=== PATIENT | male | born 1960 | race African-American/Black ===

== ENCOUNTER 2020-05-24 14:04 | Emergency (ER) | payer OTHER ==
--- NOTE | 2020-05-24 14:16 | PDOC ---
History of Present Illness - General Stated Complaint: Altered Mental Status Time Seen by Provider: 05/24/20 14:15 History Source: Patient Exam Limitations: Intoxication - History of Present Illness Initial Comments: HPI: Patient is an 60 y/o male with a PMH of heroin and alcohol abuse, and hep C, brought in by EMS from [facility]. He was sent over because he was unable to answ er questions during his admission. Patient is a poor historian, but said that he snorted more heroin than normal this morning. Patient denied alcohol use today. He stated that he fell and hit his head, and admitted to a headache. Per [facility] paperwork, DANIEL O%. Denied chest pain, SOB, nausea, or vomiting. ROS: -limited 2/2 intoxication (+): Headache (-): Chest pain, SOB, nausea, vomiting PMH: Hepatitis C, HTN, HLD PE: General: Patient is AAOx3 but visibly intoxicated, in no acute distress Head: Normocephalic, atraumatic Eyes: L eye miotic but responsive to light, R eye dilated and unresponsive. Patient states this is chronic and he had surgery in 2004. Cardiac: RRR, no murmurs appreciated Lungs: CTA bilaterally, no distress, speaks in full sentences Neuro: No focal sensorimotor defecits MDM: This is a 60 y/o male coming in from [facility] where he was doing intake for admission into their detox. He was unable to answer the intake questions. During our exam, he stated that he hit his head earlier in the day. We decided to CT his head and neck due to an unwitnessed fall and because he was unable to state whether he had LOC. The Head CT came back clear, but the radiologist noted that the neck CT showed a possible dilated vertebral artery. Spoke with Dr. Lopez (neuro) who didn't think this was anything acute, and could be followed up with as an outpatient. Patient refused his EKG. 05/24/20 18:08 05/24/20 18:12 05/24/20 18:43 05/24/20 23:05 Is this a multiple visit Asthma Patient?: No Past History - Medical History Allergies/Adverse Reactions: Allergies Allergy/AdvReac Type Severity Reaction Status Date / Time No Known Allergies Allergy Verified 05/24/20 14:19 Home Medications: Ambulatory Orders Simvastatin [Zocor] 0 mg PO HS 06/30/16 Amlodipine Besylate [Norvasc -] 5 mg PO DAILY #30 tablet 07/15/16 Atorvastatin Ca [Lipitor] 10 mg PO HS #30 tablet 07/15/16 traZODone HCL [Desyrel -] 50 mg PO HS #30 tablet 07/16/16 Anemia: No Asthma: No Cancer: No Cardiac Disorders: No CVA: No COPD: No CHF: No Dementia: No Diabetes: No GI Disorders: No Disorders: No HTN: Yes (Tx with Norvasc 5 mg po) Hypercholesterolemia: No Kidney Stones: No Liver Disease: No Seizures: No Thyroid Disease: No - Surgical History Abdominal Surgery: No Appendectomy: No Cardiac Surgery: No Cholecystectomy: Yes (in 2012) Lung Surgery: No Neurologic Surgery: No Orthopedic Surgery: No - Reproductive History Testicular Surgery: No - Psycho-Social/Smoking History Smoking History: Current every day smoker Have you smoked in the past 12 months: Yes Number of Cigarettes Smoked Daily: 4 Cigars Per Day: 0 'Breaking Loose' booklet given: 06/30/16 Discharge - Discharge Information Problems reviewed: Yes Clinical Impression/Diagnosis: Opioid dependence, daily use Condition: Fair Disposition: HOME - Admission No - Follow up/Referral Referrals: Sagar Lopez MD [Staff Physician] - - Patient Discharge Instructions Patient Printed Discharge Instructions: DI for Opioid Addiction Additional Instructions: You were seen here for opioid abuse/intoxication and "hitting your head." You were evaluated with a physical exam and a CT of the head and neck. Imaging was negative. You state that you would like to be detoxed. You are medically cleared at this time and can proceed to detox. Please refrain from using substances in the future. Follow up with Dr. Lopez, Neurology for evaluation of vertebral artery found on cervical CT. Return to the ER immediately if you experience chest pain, SOB, lightheadedness, nausea, vomiting, or any other concerning symptoms. - Post Discharge Activity
[2020-05-24 14:27] VITALS: TEMP 99.5; BMI 20.9
--- NOTE | 2020-05-24 15:52 | PDOC ---
Documentation entered by Enoch Tamez SCRIBE, acting as scribe for Sarah López MD. Sarah López MD: This documentation has been prepared by the Joi thompson Xhesika, SCRIBE, under my direction and personally reviewed by me in its entirety. I confirm that the documentation accurately reflects all work, treatment, procedures, and medical decision making performed by me. Attending Attestation - Resident Resident Name: Alecia Burkett - ED Attending Attestation I have performed the following: I have examined & evaluated the patient, The case was reviewed & discussed with the resident, I agree w/resident's findings & plan, Exceptions are as noted - HPI HPI: 05/24/20 14:43 The patient is a 60y/o M with a PMH of HTN and heroine abuse who presents to the ED BIBA from [facility] for AMS. Pt states he snorted more heroine than usual today. Pt reports a mechanical fall and hit his head. Pt denies any medical complaints here in the ED. Allergies: NKDA - Physicial Exam PE: 05/24/20 15:47 General: non-toxic appearing, NAD HEENT: NCAT, EOMI, surgical pupil on R (pt reports prior eye surgery) Neuro: asleep but easily arousable, Aox3, answers questions appropriately, speech fluent face symmetric, gait steady, no focal deficits - Medical Decision Making 05/24/20 15:48 60 yo M sent from [facility] for AMS, blood alcohol negative there and patient would not give urine so sent to ED. In ED patient asleep but easily arousable, Aox3 without any focal deficits, admits to snorting heroin this morning more than usual, normal respiratory rate, no infectious complaints. Mental status at rehab center likely 2/2 substance use however given h/o fall reported by patient will get CT head to r/o ICH. Multiple attempts made to do EKG however patient refused and yelled at tech to get out of his room despite multiple attempts made to perform EKG and explain to patient that it would not be painful and was important to check his heart however patient said he wanted to be left alone to sleep. Plan: -CT head -if CT head negative will d/c back to [facility], return precautions given, recommend PMD f/u as needed This clinical encounter is taking place during a federal and state health care emergency attributable to the novel Richardson Virus pandemic. The Cyber [employer] of the Department of Health and Human Services has declared, pursuant to the Public Health Service Act 319F-3 (42 U.S.C. 247d-6d), that a covered persons activities related to medical countermeasures against COVID-19 will be immune from liability under Federal and State law. Discharge - Discharge Information Problems reviewed: Yes Clinical Impression/Diagnosis: Opioid dependence, daily use Condition: Fair Disposition: HOME - Follow up/Referral Referrals: Sagar Lopez MD [Staff Physician] - - Patient Discharge Instructions Patient Printed Discharge Instructions: DI for Opioid Addiction Additional Instructions: You were seen here for opioid abuse/intoxication and "hitting your head." You were evaluated with a physical exam and a CT of the head and neck. Imaging was negative. You state that you would like to be detoxed. You are medically cleared at this time and can proceed to detox. Please refrain from using substances in the future. Follow up with Dr. Lopez, Neurology for evaluation of vertebral artery found on cervical CT. Return to the ER immediately if you experience chest pain, SOB, lightheadedness, nausea, vomiting, or any other concerning symptoms. - Post Discharge Activity
[2020-05-24 17:43] VITALS: BP 157/73; PULSE 72
== END 2020-05-24 17:43 | disposition home or self-care (01) ==
LOC: JER 14:04
DX: F11.20 Opioid dependence, uncomplicated (principal)
CPT/HCPCS: 70450-TC; 72125-TC; 82962; 99284-25

== ENCOUNTER 2020-05-24 23:07 | Inpatient (IN) | payer OTHER ==
--- NOTE | 2020-05-25 00:15 | PDOC ---
Attending Attestation - Resident Resident Name: Ralph Conrad - ED Attending Attestation I have performed the following: I have examined & evaluated the patient, The case was reviewed & discussed with the resident, I agree w/resident's findings & plan - HPI HPI: 05/25/20 00:13 Pt comes with "AMS" from [facility]. Pt is not answering questions and although he reports drug use, he is refusing to give urine, so they sent him here for evaluation. 05/25/20 02:08 Pt seems somnolent and states that he is trying to quit drugs cold turkey. States that he doesn't want to keep answering the same questions. - Physicial Exam PE: 05/25/20 00:15 Agree with resident note. 05/25/20 02:10 Pt is cachectic - temporal wasting. Pt is afebrile. He has old abrasions on right knee, and old cuts on face. heart and lungs normal Abd soft NT ND no flank pain jauncied/icteric eyes no peripheral edema - Medical Decision Making 05/25/20 00:16 Pt was seen here in the ER this AM; Head CT and cspine CT normal 05/25/20 01:12 Pt never had labs this AM; we will try to get labs if he allows them to be drawn. Pt will also need to give us urine so that we can send a UTOX. 05/25/20 03:16 We are finally getting labs on the patient. He is refusing to cooperate; urinated all over the floor. Removed his scrubs and threw off his sheets, lying naked. I covered him up again. Resting comfortably. 05/25/20 04:50 LFTS are elevated. Pt has elevated Tbili higher than his usual. Pt has had elevated ammonia in the past. He will have an ammonia level sent and he will be treated with lactulose; he likely has hepatic encephalopathy. Discharge - Discharge Information Problems reviewed: Yes Clinical Impression/Diagnosis: AMS (altered mental status) - Follow up/Referral - Patient Discharge Instructions - Post Discharge Activity
--- NOTE | 2020-05-25 00:27 | PDOC ---
History of Present Illness - General Chief Complaint: Altered Mental Status Stated Complaint: ALTERED MENTAL STATUS Time Seen by Provider: 05/24/20 23:47 History Source: Patient Exam Limitations: No Limitations - History of Present Illness Initial Comments: 05/25/20 00:22 60 yo male pmh heroin abuse from [facility] for AMS for the second visit in 1 day. Pt seen and cleared by day shift team, resident present in the ED that saw the patient, states there is no changes in his mental status from earlier today, AOX3, easily arousable, no focal deficits. Note from [facility] states pt did not give urine and will not be admitted to [facility] without positive urine for heroin. Pt state "I am doped up and want heroin detox" admits to snoring heroin yesterday. Fall out of bed earlier today, neg head CT, denies GARCIA or focal deficits Past History - Medical History Allergies/Adverse Reactions: Allergies Allergy/AdvReac Type Severity Reaction Status Date / Time No Known Allergies Allergy Verified 05/24/20 23:20 Home Medications: Ambulatory Orders Simvastatin [Zocor] 0 mg PO HS 06/30/16 Amlodipine Besylate [Norvasc -] 5 mg PO DAILY #30 tablet 07/15/16 Atorvastatin Ca [Lipitor] 10 mg PO HS #30 tablet 07/15/16 traZODone HCL [Desyrel -] 50 mg PO HS #30 tablet 07/16/16 Anemia: No Asthma: No Cancer: No Cardiac Disorders: No CVA: No COPD: No CHF: No Dementia: No Diabetes: No GI Disorders: No Disorders: No HTN: Yes (Tx with Norvasc 5 mg po) Hypercholesterolemia: No Kidney Stones: No Liver Disease: No Seizures: No Thyroid Disease: No - Surgical History Abdominal Surgery: No Appendectomy: No Cardiac Surgery: No Cholecystectomy: Yes (in 2012) Lung Surgery: No Neurologic Surgery: No Orthopedic Surgery: No - Reproductive History Testicular Surgery: No - Immunization History Immunization Up to Date: No - Psycho-Social/Smoking History Smoking History: Unknown if ever smoked Have you smoked in the past 12 months: Yes Number of Cigarettes Smoked Daily: 4 Cigars Per Day: 0 'Breaking Loose' booklet given: 06/30/16 - Substance Abuse Hx (Audit-C & DAST Scrn) How often the patient has a drink containing alcohol: 4 0r more times/wk Number of drinks the patient has on a typical day: 10 or more How often the patient has six or more drinks on one occasion: Daily or almost daily Score: In Men: 4 or > Positive; In Women: 3 or > Positive: 12 Screen Result (Pos requires Nsg. Audit-10AR): Positive In the last yr the pt used illegal drug/Rx for NonMed reason: Yes Score: Yes response is considered Positive: 1 Screen Result (Positive result requires Nsg. DAST-10): Positive Review of Systems - Review of Systems Constitutional: Yes: Symptoms Reported HEENTM: Yes: Symptoms Reported Respiratory: Yes: Symptoms reported Cardiac (ROS): Yes: Symptoms Reported ABD/GI: Yes: Symptoms Reported : Yes: Symptoms Reported Musculoskeletal: Yes: Symptoms Reported Integumentary: Yes: Symptoms Reported Neurological: Yes: Symptoms reported *Physical Exam - Vital Signs Last Vital Signs Temp Pulse Resp BP Pulse Ox 98 F 90 18 147/115 H 100 05/24/20 23:14 05/24/20 23:14 05/24/20 23:14 05/24/20 23:14 05/24/20 23:14 - Physical Exam General Appearance: Yes: Nourished, Appropriately Dressed. No: Apparent Distress HEENT: positive: EOMI, MECHELLE Neck: positive: Supple. negative: Carotid bruit Respiratory/Chest: positive: Lungs Clear, Normal Breath Sounds. negative: Respiratory Distress, Rapid RR, Crackles, Rales, Rhonchi, Stridor, Wheezing Cardiovascular: positive: Regular Rhythm, Regular Rate, S1, S2. negative: Edema, JVD, Murmur Vascular Pulses: Dorsalis-Pedis (R): 4+, Doralis-Pedis (L): 4+ Gastrointestinal/Abdominal: positive: Flat, Soft. negative: Pulsatile Mass, Protuberent, Distended, Guarding, Rebound, Tenderness Musculoskeletal: negative: CVA Tenderness Extremity: positive: Normal Capillary Refill, Normal Inspection, Normal Range of Motion Integumentary: positive: Normal Color, Dry, Warm Neurologic: positive: Fully Oriented, Alert, Normal Mood/Affect ED Treatment Course - LABORATORY CBC & Chemistry Diagram: 05/25/20 03:19 05/25/20 03:19 Medical Decision Making - Medical Decision Making 05/25/20 00:27 60 yo male pmh heroin abuse from [facility] for AMS for the second visit in 1 day. Pt seen and cleared by day shift team, resident present in the ED that saw the patient, states there is no changes in his mental status from earlier today, AOX3, easily arousable, no focal deficits. Note from [facility] states pt did not give urine and will not be admitted to [facility] without positive urine for heroin. Pt state "I am doped up and want heroin detox" admits to snoring heroin yesterday. Fall out of bed earlier today, neg head CT, denies GARCIA or focal deficits vitals stable Pt hx elevated ammonia, likely hepatic encephalopathy Labs show elevated ammonia and bili Pt given lactulose and will be admitted for AMS Neg urine for heroin, no signs of withdrawl Pending MB call back for admission s/o to day team Discharge - Discharge Information Problems reviewed: Yes Clinical Impression/Diagnosis: AMS (altered mental status) - Follow up/Referral - Patient Discharge Instructions - Post Discharge Activity
[2020-05-25 00:30] VITALS: BMI 23.6
[2020-05-25 03:35] LABS: BASO % 0.6 % (0-2.0); EOS % 1.4 % (0-4.5); HEMATOCRIT 33.9 % (35.4-49); HEMOGLOBIN 10.8 GM/dL (11.7-16.9); LYMPH % 26.2 % (8-40); MCH 29.8 pg (25.7-33.7); MCHC 31.9 g/dl (32.0-35.9); MEAN CELL VOLUME 93.2 fl (80-96); MONO % 19.9 % (3.8-10.2); NEUT % 51.9 % (42.8-82.8); PLATELET COUNT 123 K/MM3 (134-434); RBC 3.63 M/mm3 (4.00-5.60); RDW 18.5 % (11.9-15.9)
[2020-05-25 04:02] LABS: ALBUMIN 3.1 g/dl (3.4-5.0); BILIRUBIN,TOTAL 2.6 mg/dL (0.2-1); BLOOD UREA NITROGEN 4.7 mg/dL (7-18); CALCIUM 8.8 mg/dL (8.5-10.1); CREATININE 0.9 mg/dL (0.55-1.3); POTASSIUM 3.4 mmol/L (3.5-5.1); TOT PROT 7.4 g/dl (6.4-8.2)
[2020-05-25] MEDS ORDERED: LACTULOSE 20 GM/30 ML UDC (FOR ORAL USE ONLY) PO ONE (04:22)
[2020-05-25] MEDS ORDERED: LACTULOSE 20 GM/30 ML UDC (FOR ORAL USE ONLY) ONE (04:37)
[2020-05-25 05:49] LABS: COCAINE, UR NEGATIVE ng/ml (CUTOFF=300); METHADONE, UR NEGATIVE ng/ml (CUTOFF=300); OPIATES, URI NEGATIVE ng/ml (CUTOFF=300); PHENCYCLIDINE,URINE NEGATIVE ng/ml (CUTOFF=25); URINE BARBITURATES NEGATIVE ng/ml (CUTOFF=200); URINE BENZODIAZEPINES NEGATIVE ng/ml (CUTOFF=200)
[2020-05-25 06:16] LABS: URINE AMPHETAMINES NEGATIVE ng/ml (CUTOFF=500)
[2020-05-25 06:25] LABS: URINE APPEARANCE CLEAR; URINE COLOR YELLOW
[2020-05-25 06:26] LABS: URINE BILIRUBIN NEGATIVE (NEGATIVE); URINE GLUCOSE (UA) NEGATIVE (NEGATIVE); URINE KETONE NEGATIVE (NEGATIVE)
[2020-05-25 06:27] LABS: PH,URINE 8.5 (5.0-8.0); URINE LEUK ESTERASE NEGATIVE (NEGATIVE); URINE NITRITE NEGATIVE (NEGATIVE); URINE PROTEIN NEGATIVE (NEGATIVE)
[2020-05-25] MEDS ORDERED: SODIUM CHLORIDE 1,000 ML IV STA (07:03)
[2020-05-25] MEDS ORDERED: LACTULOSE 20 GM/30 ML UDC (FOR ORAL USE ONLY) PO PRN (15:58)
[2020-05-25] MEDS ORDERED: LORazepam 1 MG TABLET PO PRN (16:06)
--- NOTE | 2020-05-25 16:12 | HP ---
Admitting History and Physical - Admission Chief Complaint: AMS History of Present Illness: 60M history of current active alcohol abuse/use disorder, HTN, HLD, Depression, hep C per patient, snorts 1 bag of heroin rodriguez and drinks 1 pint of vodka daily presented to [facility] for detox. Patient had AMS and didn't meet criteria for rehab so was sent to ER. Noted to have elevated ammonia level and elevated LFTs. Given lactulose. Utox negative. Tmax 99.9. Denies nausea vomiting fever chest pain or SOB. denies diarrhea. Endorses chills. Used to inject heroin, last time in 1995. uSed to share needles. Patient had a fall as well. History Source: Medical Record Limitations to Obtaining History: Clinical Condition, Intoxication, Poor Historian - Past Medical History Cardiovascular: Yes: HTN Hepatobiliary: Yes: Hepatitis C Infectious Disease: Yes: Other ([facility] needles in the ) - Smoking History Smoking history: Unknown if ever smoked Have you smoked in the past 12 months: Yes Aproximately how many cigarettes per day: 4 - Alcohol/Substance Use Hx Alcohol Use: Yes (3-4 pints of vodka) Home Medications - Allergies Allergies/Adverse Reactions: Allergies Allergy/AdvReac Type Severity Reaction Status Date / Time No Known Allergies Allergy Verified 05/24/20 23:20 - Home Medications Home Medications: Ambulatory Orders Simvastatin [Zocor] 0 mg PO HS 06/30/16 Amlodipine Besylate [Norvasc -] 5 mg PO DAILY #30 tablet 07/15/16 Atorvastatin Ca [Lipitor] 10 mg PO HS #30 tablet 07/15/16 traZODone HCL [Desyrel -] 50 mg PO HS #30 tablet 07/16/16 Family Medical History Family History: Unable to Obtain Review of Systems - Review of Systems Constitutional: reports: Chills. denies: Fever Eyes: reports: No Symptoms HENT: reports: No Symptoms Neck: reports: No Symptoms Cardiovascular: reports: No Symptoms Respiratory: reports: No Symptoms Gastrointestinal: reports: No Symptoms Genitourinary: reports: No Symptoms Breasts: reports: No Symptoms Reported Musculoskeletal: reports: Muscle Weakness Integumentary: reports: Other (piloerection) Neurological: reports: Confusion, Tremors, Unsteady Gait Psychiatric: reports: Depression, Other (alcohol and opioid abuse) Physical Examination Vital Signs: Vital Signs Temperature 99.9 F H 05/25/20 15:21 Pulse Rate 74 05/25/20 15:21 Respiratory Rate 18 05/25/20 06:19 Blood Pressure 144/78 05/25/20 15:21 O2 Sat by Pulse Oximetry (%) 100 05/25/20 15:21 Constitutional: Yes: No Distress, Thin Eyes: Yes: EOM Intact. No: Sclera Icterus HENT: Yes: Atraumatic, Thrush Neck: Yes: Supple Cardiovascular: Yes: Tachycardia Respiratory: Yes: CTA Bilaterally Gastrointestinal: Yes: Soft. No: Tenderness Extremities: Yes: WNL Edema: No Labs: CBC, BMP 05/25/20 03:19 05/25/20 03:19 Imaging - Results Chest X-ray: Report Reviewed, Image Reviewed Cat Scan: Report Reviewed, Image Reviewed (C spine and head CT) Assessment/Plan 60M with alcohol and opioid abuse/dependence presents with AMS likely secondary to alcoholic encephalopathy. Problem List: hepatic encephalopathy ? basal ganglia lesions alcohol and opioid abuse/dependency Polysubstance abuse altered mental status Hypokalemia HTN HLD Depression Thrush Plan: Admit to med surg lactulose to titrate to 3 BMs per day restart norvasc restart statin nystatin oral suspension Trazadone check acute hepatitis panel [facility] Utox tomorrow neurology consult Due to acute illness I anticipate a stay spanning at least 2 midnights. Visit type - Emergency Visit Emergency Visit: Yes ED Registration Date: 05/25/20 Care time: The patient presented to the Emergency Department on the above date and was hospitalized for further evaluation of their emergent condition. - New Patient This patient is new to me today: Yes Date on this admission: 05/25/20 - Critical Care Critical Care patient: No
[2020-05-25] MEDS ORDERED: POTASSIUM CHLORIDE TABS 20 MEQ TABLET.ER (FP) PO ONE ×2 (16:15→16:38)
[2020-05-25] MEDS ORDERED: LORazepam 0.5 MG TABLET ONE ×2 (16:38→23:04)
[2020-05-25] MEDS: LORazepam 0.5 MG TABLET PO SCH ×2 (16:57→23:10)
[2020-05-25] MEDS: NYSTATIN 500,000 UNITS/5 ML SUSPENSION PO SCH (18:42)
[2020-05-25] MEDS ORDERED: ATORVASTATIN CA 10 MG TABLET (FP) PO SCH (22:00)
[2020-05-25] MEDS ORDERED: HEPARIN NA (PORCINE) 5,000 UNITS/ML 1ML VIAL ONE (22:09)
[2020-05-25] MEDS ORDERED: ATORVASTATIN CA 10 MG TABLET (FP) ONE (22:09)
[2020-05-25] MEDS: HEPARIN NA (PORCINE) 5,000 UNITS/ML 1ML VIAL SQ SCH (22:35)
[2020-05-25] MEDS: traZODone HCL 50 MG TABLET (FP) PO SCH (22:35)
[2020-05-26] MEDS: NYSTATIN 500,000 UNITS/5 ML SUSPENSION PO SCH ×4 (00:42→17:03)
[2020-05-26] MEDS: LORazepam 0.5 MG TABLET PO SCH ×4 (06:04→23:44)
[2020-05-26] MEDS: HEPARIN NA (PORCINE) 5,000 UNITS/ML 1ML VIAL SQ SCH ×3 (06:17→21:06)
[2020-05-26 08:13] LABS: BASO % 0.9 % (0-2.0); EOS % 0.5 % (0-4.5); HEMOGLOBIN 9.7 GM/dL (11.7-16.9); LYMPH % 25.3 % (8-40); MCH 28.6 pg (25.7-33.7); MCHC 31.2 g/dl (32.0-35.9); MEAN CELL VOLUME 91.6 fl (80-96); MONO % 16.9 % (3.8-10.2); NEUT % 56.4 % (42.8-82.8); PLATELET COUNT 108 K/MM3 (134-434); RBC 3.38 M/mm3 (4.00-5.60); RDW 18.8 % (11.9-15.9); WHITE BLOOD COUNT 4.5 K/mm3 (4.0-10.0)
[2020-05-26 08:24] LABS: INR 1.79 (0.83-1.09); PROTHROMBIN TIME (PATIENT) 21.2 SEC (9.7-13.0)
[2020-05-26 08:29] LABS: ALBUMIN 2.7 g/dl (3.4-5.0); BILIRUBIN,TOTAL 2.2 mg/dL (0.2-1); BLOOD UREA NITROGEN 6.2 mg/dL (7-18); CALCIUM 8.1 mg/dL (8.5-10.1); CREATININE 0.8 mg/dL (0.55-1.3); MAGNESIUM 1.9 mg/dL (1.8-2.4); PHOSPHOROUS 4.5 mg/dL (2.5-4.9); TOT PROT 6.3 g/dl (6.4-8.2)
[2020-05-26 08:50] LABS: POTASSIUM 2.5 mmol/L (3.5-5.1)
--- NOTE | 2020-05-26 09:29 | PN ---
Physical Exam: SUBJECTIVE: No overnight events. Patient seen and examined. NAD. Patient is somnolent. OBJECTIVE: Vital Signs Period Temp Pulse Resp BP Sys/Dee Pulse Ox Last 24 Hr 97.9 F-99.9 F 74-101 18-20 144-159/78-90 98-100 GENERAL: Pt is thin man. Pt is somnolent and in NAD. HEENT: NT/NC; sclera anicteric, No ptosis. Oral thrush; increased oral secretions LUNGS: Breath sounds equal, clear to auscultation bilaterally, no wheezes, no crackles, no accessory muscle use. HEART: Regular rate and rhythm, S1, S2 without murmur, rub or gallop. ABDOMEN: Soft, nontender, nondistended, normoactive bowel sounds, no guarding, no rebound EXTREMITIES: warm, well-perfused, no edema. abrasions on R knee. NEUROLOGICAL: gait not observed, speech slurred. strength 4/5 lower extremities; 3/5 upper extremities. asked pt about sensation, but pt was somnolent and did not answer questions. PSYCH: Normal mood, normal affect. SKIN: Warm, dry, normal turgor, no rashes or lesions noted Laboratory Results - last 24 hr 05/25/20 05/25/20 05/26/20 03:19 17:35 07:43 WBC 4.5 RBC 3.38 L Hgb 9.7 L Hct 31.0 L MCV 91.6 MCH 28.6 MCHC 31.2 L RDW 18.8 H Plt Count 108 L MPV 8.0 Absolute Neuts (auto) 2.5 Neutrophils % 56.4 Lymphocytes % 25.3 Monocytes % 16.9 H Eosinophils % 0.5 Basophils % 0.9 Nucleated RBC % 0 PT with INR INR Sodium 142 Potassium 3.4 L Chloride 116 H Carbon Dioxide 17 L Anion Gap 9 BUN 4.7 L Creatinine 0.9 Est GFR (CKD-EPI)AfAm 106.46 Est GFR (CKD-EPI)NonAf 91.86 Random Glucose 92 Calcium 8.8 Phosphorus Magnesium Total Bilirubin 2.6 H Direct Bilirubin AST 115 H ALT 57 Alkaline Phosphatase 148 H Ammonia Creatine Kinase 390 H Creatine Kinase Index 0.8 CK-MB (CK-2) 3.5 Troponin I 0.03 Total Protein 7.4 Albumin 3.1 L Alcohol, Quantitative Cancelled HIV Ag/Ab Combo Qual Negative 05/26/20 05/26/20 05/26/20 07:43 07:43 07:43 WBC RBC Hgb Hct MCV MCH MCHC RDW Plt Count MPV Absolute Neuts (auto) Neutrophils % Lymphocytes % Monocytes % Eosinophils % Basophils % Nucleated RBC % PT with INR 21.20 H INR 1.79 H Sodium 148 H Potassium 2.5 L* Chloride 119 H Carbon Dioxide 14 L Anion Gap 16 BUN 6.2 L Creatinine 0.8 Est GFR (CKD-EPI)AfAm 111.74 Est GFR (CKD-EPI)NonAf 96.41 Random Glucose 91 Calcium 8.1 L Phosphorus 4.5 Magnesium 1.9 Total Bilirubin 2.2 H Direct Bilirubin 1.0 H AST 87 H ALT 50 Alkaline Phosphatase 118 H Ammonia 93.40 H Creatine Kinase Creatine Kinase Index CK-MB (CK-2) Troponin I Total Protein 6.3 L Albumin 2.7 L Alcohol, Quantitative HIV Ag/Ab Combo Qual Active Medications Generic Name Dose Route Start Last Admin Trade Name Freq PRN Reason Stop Dose Admin Amlodipine Besylate 5 mg 05/26/20 10:00 Norvasc - PO DAILY JOE Atorvastatin Calcium 10 mg 05/25/20 22:00 05/25/20 22:35 Lipitor - PO 10 mg HS JOE Administration Heparin Sodium (Porcine) 5,000 unit 05/25/20 22:00 05/26/20 06:17 Heparin - SQ 5,000 unit TID JOE Administration Lactulose 20 gm 05/25/20 15:58 Cephulac (Oral Use) PO TID PRN CONSTIPATION Lorazepam 1 mg 05/27/20 05:00 Ativan - PO 05/27/20 23:01 0500,1100,1700,2300 JOE Lorazepam 1 mg 05/25/20 16:06 Ativan - PO 05/27/20 23:59 Q4H PRN Symptoms of Withdrawal Lorazepam 2 mg 05/25/20 17:00 05/26/20 06:04 Ativan - PO 05/26/20 23:01 2 mg 0500,1100,1700,2300 JOE Administration Lorazepam 0.5 mg 05/28/20 05:00 Ativan - PO 05/28/20 23:01 Q6H JOE Lorazepam 0.5 mg 05/28/20 00:00 Ativan - PO 05/29/20 00:00 Q4H PRN Symptoms of Withdrawal Lorazepam 0.5 mg 05/29/20 05:00 Ativan - PO 05/29/20 05:01 ONCE ONE Nystatin 500,000 units 05/25/20 18:00 05/26/20 06:11 Nystatin Oral Suspension - PO 500,000 units Q6HPO JOE Administration Trazodone HCl 50 mg 05/25/20 22:00 05/25/20 22:35 Desyrel - PO 50 mg HS JOE Administration utox: negative HIV: negative CT head: small b/l basal ganglia hypodense foci C-spine: Soft tissue density within C3-C4 intervertebral foramen. At C4, widening of the L sided vertebral canal which could be on the basis of vertebral artery dilatation or elongation. MRI: pending shoulder x-ray: no bone or soft tissue abnormality ASSESSMENT/PLAN: 60 YO M PMH HTN, HLD, depression, Hep C (according to pt), alcohol use disorder (1 pint vodka daily), and heroin use (last heroin injection 1995 & previously shared needles; Now snorts 1 bag heroid daily) p/w AMS and a fall after endorsing snorting heroin on 05/24/2020. Didn't meet criteria for rehab, so was refused by [facility] for detox. Admitted for AMS 2/2 hepatic encephalopathy #AMS 2/2 hepatic encephalopathy 2/2 substance use disorder -ammonia improved form 94.2 to 93.4, AST trended down from 115 to 87 today -c/w lactulose PO, rectal if PO is not tolerated due to somnolence. -Hep A, B, C serology pending #alcohol use disorder -utox negative -lorazepam as per [facility] protocol -IV Thiamine #Fall -CT head negative for acute pathology. CT head & c-spine are as above. -CT: small b/l basal ganglia hypodense foci; Neuro consult appreciated. REPEAT head CT as initial was limited by motion artifact #HTN c/w amlodipine 5 mg. #HLD -c/w atorvastatin 10 mg #Thrush c/w Nystatin oral suspension #depression c/w trazodone #COVID pending #FEN -no IV fluids -hypokalemia; K+ trend down from 3.4 to 2.5 today. Na+ elevated, P & Mg WNL. Replete w/ KCl PO, IV as tolerated Monitor w/ BMP. Trend Phosphorus. -sodium controlled diet #DISPO maintain med surg Visit type - Emergency Visit Emergency Visit: Yes ED Registration Date: 05/25/20 Care time: The patient presented to the Emergency Department on the above date and was hospitalized for further evaluation of their emergent condition. - New Patient This patient is new to me today: Yes Date on this admission: 05/26/20 - Critical Care Critical Care patient: No ATTENDING PHYSICIAN STATEMENT I saw and evaluated the patient. I reviewed the resident's note and discussed the case with the resident. I agree with the resident's findings and plan as documented. SUBJECTIVE: OBJECTIVE: ASSESSMENT AND PLAN:
[2020-05-26] MEDS: amLODIPine BESYLATE 5 MG TABLET (FP) PO SCH (10:25)
[2020-05-26] MEDS ORDERED: POTASSIUM CHLORIDE TABS 20 MEQ TABLET.ER (FP) PO SCH (11:00)
[2020-05-26] MEDS: POTASSIUM CHLORIDE TABS 20 MEQ TABLET.ER (FP) PO SCH ×3 (11:44→23:40)
--- NOTE | 2020-05-26 11:51 | CONSULT ---
Consult - text type - Consultation Consultation Note: Neurology Chief Complaint: AMS History of Present Illness: 60M history of current active alcohol abuse/use disorder, HTN, HLD, Depression, hep C per patient, snorts 1 bag of heroin daily and drinks 1 pint of vodka daily presented to [facility] for detox. Patient had AMS and didn't meet criteria for rehab so was sent to ER. Noted to have elevated ammonia level and elevated LFTs. Given lactulose. Utox negative. Tmax 99.9. Denies nausea vomiting fever chest pain or SOB. denies diarrhea. Endorses chills. Used to inject heroin, last time in 1995. uSed to share needles. Patient had a fall as well. Patient seen at bedside and discussed with nurse, initial CT of the head demonstrated questionable lesions of the bilateral basal ganglia of unclear chronicity. Will order repeat CT head as initial was limited by motion artifact. Nurse indicated patient seem to have some increased right sided difficulty which may indicate prior CVA. If further MRI is needed then this will be considered as well. Patient is on Lipitor 10 mg but not on Aspirin, if no contraindications then recommend at least 81 mg daily for CVA prevention. History Source: Medical Record Limitations to Obtaining History: Clinical Condition, Poor Historian - Past Medical History Cardiovascular: Yes: HTN Hepatobiliary: Yes: Hepatitis C Infectious Disease: Yes: Other ([place] needles in the ) - Smoking History Smoking history: Unknown if ever smoked Have you smoked in the past 12 months: Yes Aproximately how many cigarettes per day: 4 - Alcohol/Substance Use Hx Alcohol Use: Yes (3-4 pints of vodka) Allergies Allergy/AdvReac Type Severity Reaction Status Date / Time No Known Allergies Allergy Verified 05/24/20 23:20 Ambulatory Orders Simvastatin [Zocor] 0 mg PO HS 06/30/16 Amlodipine Besylate [Norvasc -] 5 mg PO DAILY #30 tablet 07/15/16 Atorvastatin Ca [Lipitor] 10 mg PO HS #30 tablet 07/15/16 traZODone HCL [Desyrel -] 50 mg PO HS #30 tablet 07/16/16 Active Medications Amlodipine Besylate (Norvasc -) 5 mg PO DAILY [facility] Last Admin: 05/26/20 10:25 Dose: 5 mg Documented by: Atorvastatin Calcium (Lipitor -) 10 mg PO [facility] Last Admin: 05/25/20 22:35 Dose: 10 mg Documented by: Heparin Sodium (Porcine) (Heparin -) 5,000 unit SQ TID [facility] Last Admin: 05/26/20 06:17 Dose: 5,000 unit Documented by: Potassium Chloride (Potassium Chloride 10 Meq Premix Ivpb -) 10 meq in 100 mls @ 100 mls/hr IVPB Q60M [facility] Stop: 05/26/20 14:29 Lactulose (Cephulac (Oral Use)) 20 gm PO TID [facility] Stop: 05/27/20 13:59 Lorazepam (Ativan -) 1 mg PO 0500,1100,1700,2300 [facility] Stop: 05/27/20 23:01 Lorazepam (Ativan -) 1 mg PO Q4H PRN PRN Reason: Symptoms of Withdrawal Stop: 05/27/20 23:59 Lorazepam (Ativan -) 2 mg PO 0500,1100,1700,2300 [facility] Stop: 05/26/20 23:01 Last Admin: 05/26/20 06:04 Dose: 2 mg Documented by: Lorazepam (Ativan -) 0.5 mg PO Q6H [facility] Stop: 05/28/20 23:01 Lorazepam (Ativan -) 0.5 mg PO Q4H PRN PRN Reason: Symptoms of Withdrawal Stop: 05/29/20 00:00 Lorazepam (Ativan -) 0.5 mg PO ONCE ONE Stop: 05/29/20 05:01 Nystatin (Nystatin Oral Suspension -) 500,000 units PO Q6HPO [facility] Last Admin: 05/26/20 11:44 Dose: 500,000 units Documented by: Potassium Chloride (K-Dur -) 20 meq PO Q6H [facility] Stop: 05/28/20 10:59 Last Admin: 05/26/20 11:44 Dose: 20 meq Documented by: Trazodone HCl (Desyrel -) 50 mg PO HS [facility] Last Admin: 05/25/20 22:35 Dose: 50 mg Documented by: Family Medical History Family History: Unable to Obtain, limited mentals status Review of Systems - Review of Systems Constitutional: reports: Chills. denies: Fever Eyes: reports: No Symptoms HENT: reports: No Symptoms Neck: reports: No Symptoms Cardiovascular: reports: No Symptoms Respiratory: reports: No Symptoms Gastrointestinal: reports: No Symptoms Genitourinary: reports: No Symptoms Breasts: reports: No Symptoms Reported Musculoskeletal: reports: Muscle Weakness Integumentary: reports: Other (piloerection) Neurological: reports: Confusion, Tremors, Unsteady Gait Psychiatric: reports: Depression, Other (alcohol and opioid abuse) Physical Examination Vital Signs: Vital Signs Period Temp Pulse Resp BP Sys/Dee Pulse Ox Last 24 Hr 97.9 F-99.9 F 74-101 18-20 144-159/78-90 99-100 Constitutional: Yes: No Distress, Thin Eyes: Yes: EOM Intact. No: Sclera Icterus HENT: Yes: Atraumatic, Thrush Neck: Yes: Supple Cardiovascular: Yes: Tachycardia Respiratory: Yes: CTA Bilaterally Gastrointestinal: Yes: Soft. No: Tenderness Extremities: Yes: WNL Neuro: Somnolent but arousable, moving extremity's grossly but not participating in confrontations testing, minimally verbal, intact to tactile stimulation Labs: CBCD WBC 4.5 K/mm3 (4.0-10.0) 05/26/20 07:43 RBC 3.38 M/mm3 (4.00-5.60) L 05/26/20 07:43 Hgb 9.7 GM/dL (11.7-16.9) L 05/26/20 07:43 Hct 31.0 % (35.4-49) L 05/26/20 07:43 MCV 91.6 fl (80-96) 05/26/20 07:43 MCHC 31.2 g/dl (32.0-35.9) L 05/26/20 07:43 RDW 18.8 % (11.9-15.9) H 05/26/20 07:43 Plt Count 108 K/MM3 (134-434) L 05/26/20 07:43 MPV 8.0 fl (7.5-11.1) 05/26/20 07:43 CMP Sodium 148 mmol/L (136-145) H 05/26/20 07:43 Potassium 2.5 mmol/L (3.5-5.1) L* 05/26/20 07:43 Chloride 119 mmol/L (98-107) H 05/26/20 07:43 Carbon Dioxide 14 mmol/L (21-32) L 05/26/20 07:43 Anion Gap 16 MMOL/L (8-16) 05/26/20 07:43 BUN 6.2 mg/dL (7-18) L 05/26/20 07:43 Creatinine 0.8 mg/dL (0.55-1.3) 05/26/20 07:43 Random Glucose 91 mg/dL (74-106) 05/26/20 07:43 Calcium 8.1 mg/dL (8.5-10.1) L 05/26/20 07:43 Total Bilirubin 2.2 mg/dL (0.2-1) H 05/26/20 07:43 AST 87 U/L (15-37) H 05/26/20 07:43 ALT 50 U/L (13-61) 05/26/20 07:43 Alkaline Phosphatase 118 U/L (45-117) H 05/26/20 07:43 Total Protein 6.3 g/dl (6.4-8.2) L 05/26/20 07:43 Albumin 2.7 g/dl (3.4-5.0) L 05/26/20 07:43 CARDIAC ENZYMES Creatine Kinase 390 U/L (26-308) H 05/25/20 03:19 Troponin I 0.03 ng/ml (0.00-0.05) 05/25/20 03:19 Assessment/Plan 60M history of current active alcohol abuse/use disorder, HTN, HLD, Depression, hep C per patient, snorts 1 bag of heroin daily and drinks 1 pint of vodka daily presented to [facility] for detox. Patient had AMS and didn't meet criteria for rehab so was sent to ER. Noted to have elevated ammonia level and elevated LFTs. Given lactulose. Utox negative. Tmax 99.9. Denies nausea vomiting fever chest pain or SOB. denies diarrhea. Endorses chills. Used to inject heroin, last time in 1995. uSed to share needles. Patient had a fall as well. Patient seen at bedside and discussed with nurse, initial CT of the head demonstrated questionable lesions of the bilateral basal ganglia of unclear chronicity. Will order repeat CT head as initial was limited by motion artifact. Nurse indicated patient seem to have some increased right sided difficulty which may indicate prior CVA. If further MRI is needed then this will be considered as well. Patient is on Lipitor 10 mg but not on Aspirin, if no contraindications then recommend at least 81 mg daily for CVA prevention. Frequent reorientation recommended. Physical therapy as tolerated. Fall precautions.
[2020-05-26] MEDS: KCL 10 MEQ IVPB 10 MEQ/100 ML INFUS.BAG IVPB SCH ×3 (12:13→14:12)
[2020-05-26] MEDS: LACTULOSE 20 GM/30 ML UDC (FOR ORAL USE ONLY) PO SCH ×2 (13:22→21:05)
[2020-05-26] MEDS: LACTULOSE 20 GM/30 ML UDC (FOR RECTAL USE ONLY) PR SCH ×2 (13:50→14:40)
[2020-05-26] MEDS: THIAMINE HCL 200 MG/2 ML VIAL IVPB SCH (13:50)
[2020-05-26] MEDS ORDERED: LACTULOSE 20 GM/30 ML UDC (FOR ORAL USE ONLY) PO SCH (14:00)
--- NOTE | 2020-05-26 14:08 | EKG ---
Test Reason : Blood Pressure : / mmHG Vent. Rate : 091 BPM Atrial Rate : 091 BPM P-R Int : 128 ms QRS Dur : 142 ms QT Int : 424 ms P-R-T Axes : 049 020 050 degrees QTc Int : 521 ms SINUS RHYTHM WITH PREMATURE ATRIAL COMPLEXES WITH ABERRANT CONDUCTION RIGHT BUNDLE BRANCH BLOCK ABNORMAL ECG NO PREVIOUS ECGS AVAILABLE Confirmed by DESMOND MIN MD ([id number]) on 05/26/2020 2:07:59 PM Referred By: Confirmed By:DESMOND MIN MD
[2020-05-26] MEDS ORDERED: LACTULOSE 20 GM/30 ML UDC (FOR RECTAL USE ONLY) PR PRN (14:36)
--- NOTE | 2020-05-26 17:28 | PN ---
Teaching Attending Note Name of Resident: Kulwant Montes De Oca ATTENDING PHYSICIAN STATEMENT I saw and evaluated the patient. I reviewed the resident's note and discussed the case with the resident. I agree with the resident's findings and plan as documented. SUBJECTIVE: Patient has no new complains going for xray of left shoulder since c/o having left shoulder pain and going for head CT. OBJECTIVE: Vital Signs Temperature 99.7 F H 05/26/20 14:00 Pulse Rate 87 05/26/20 14:00 Respiratory Rate 20 05/26/20 14:00 Blood Pressure 143/71 05/26/20 14:00 O2 Sat by Pulse Oximetry (%) 100 05/26/20 08:29 PE: per resident's note CBCD WBC 4.5 K/mm3 (4.0-10.0) 05/26/20 07:43 RBC 3.38 M/mm3 (4.00-5.60) L 05/26/20 07:43 Hgb 9.7 GM/dL (11.7-16.9) L 05/26/20 07:43 Hct 31.0 % (35.4-49) L 05/26/20 07:43 MCV 91.6 fl (80-96) 05/26/20 07:43 MCHC 31.2 g/dl (32.0-35.9) L 05/26/20 07:43 RDW 18.8 % (11.9-15.9) H 05/26/20 07:43 Plt Count 108 K/MM3 (134-434) L 05/26/20 07:43 MPV 8.0 fl (7.5-11.1) 05/26/20 07:43 CMP Sodium 148 mmol/L (136-145) H 05/26/20 07:43 Potassium 2.5 mmol/L (3.5-5.1) L* 05/26/20 07:43 Chloride 119 mmol/L (98-107) H 05/26/20 07:43 Carbon Dioxide 14 mmol/L (21-32) L 05/26/20 07:43 Anion Gap 16 MMOL/L (8-16) 05/26/20 07:43 BUN 6.2 mg/dL (7-18) L 05/26/20 07:43 Creatinine 0.8 mg/dL (0.55-1.3) 05/26/20 07:43 Random Glucose 91 mg/dL (74-106) 05/26/20 07:43 Calcium 8.1 mg/dL (8.5-10.1) L 05/26/20 07:43 Total Bilirubin 2.2 mg/dL (0.2-1) H 05/26/20 07:43 AST 87 U/L (15-37) H 05/26/20 07:43 ALT 50 U/L (13-61) 05/26/20 07:43 Alkaline Phosphatase 118 U/L (45-117) H 05/26/20 07:43 Total Protein 6.3 g/dl (6.4-8.2) L 05/26/20 07:43 Albumin 2.7 g/dl (3.4-5.0) L 05/26/20 07:43 CARDIAC ENZYMES Creatine Kinase 390 U/L (26-308) H 05/25/20 03:19 Troponin I 0.03 ng/ml (0.00-0.05) 05/25/20 03:19 Current Medications Generic Name Dose Route Start Last Admin Trade Name Freq PRN Reason Stop Dose Admin Amlodipine Besylate 5 mg 05/26/20 10:00 05/26/20 10:25 Norvasc - PO 5 mg DAILY JOE Administration Aspirin 81 mg 05/27/20 10:00 Ecotrin - PO DAILY JOE Atorvastatin Calcium 10 mg 05/25/20 22:00 05/25/20 22:35 Lipitor - PO 10 mg HS JOE Administration Heparin Sodium (Porcine) 5,000 unit 05/25/20 22:00 05/26/20 13:48 Heparin - SQ 5,000 unit TID JOE Administration Lactulose 20 gm 05/26/20 12:00 05/26/20 13:22 Cephulac (Oral Use) PO 06/02/20 11:59 20 gm TID JOE Administration Lactulose 200 gm 05/26/20 14:36 Cephulac (Rectal Use) GA DAILY PRN elevated ammonia Lorazepam 1 mg 05/27/20 05:00 Ativan - PO 05/27/20 23:01 0500,1100,1700,2300 JOE Lorazepam 1 mg 05/25/20 16:06 Ativan - PO 05/27/20 23:59 Q4H PRN Symptoms of Withdrawal Lorazepam 2 mg 05/25/20 17:00 05/26/20 16:30 Ativan - PO 05/26/20 23:01 Not Given 0500,1100,1700,2300 JOE Lorazepam 0.5 mg 05/28/20 05:00 Ativan - PO 05/28/20 23:01 Q6H JOE Lorazepam 0.5 mg 05/28/20 00:00 Ativan - PO 05/29/20 00:00 Q4H PRN Symptoms of Withdrawal Lorazepam 0.5 mg 05/29/20 05:00 Ativan - PO 05/29/20 05:01 ONCE ONE Nystatin 500,000 units 05/25/20 18:00 05/26/20 17:03 Nystatin Oral Suspension - PO 500,000 units Q6HPO JOE Administration Potassium Chloride 20 meq 05/26/20 11:21 05/26/20 16:29 K-Dur - PO 05/28/20 10:59 20 meq Q6H JOE Administration Thiamine HCl 200 mg 05/26/20 13:00 05/26/20 13:50 Vitamin B1 Injection - IVPB 200 mg DAILY JOE Administration Trazodone HCl 50 mg 05/25/20 22:00 05/25/20 22:35 Desyrel - PO 50 mg HS JOE Administration Home Medications Medication Instructions Recorded Simvastatin [Zocor] 0 mg PO HS 06/30/16 Amlodipine Besylate [Norvasc -] 5 mg PO DAILY #30 tablet 07/15/16 Atorvastatin Ca [Lipitor] 10 mg PO HS #30 tablet 07/15/16 traZODone HCL [Desyrel -] 50 mg PO HS #30 tablet 07/16/16 Microbiology 05/25/20 05:10 Urine - Urine Clean Catch Urine Culture - Final NO GROWTH OBTAINED Xray of the shoulder: no fx or dislocation CT of the head: small low attentuation foci in the basal ganglia,bl likely representing encephalolacia/chronic lacunar infarcts. utox: negative HIV: negative CT head: small b/l basal ganglia hypodense foci C-spine: Soft tissue density within C3-C4 intervertebral foramen. At C4, widening of the L sided vertebral canal which could be on the basis of vertebral artery dilatation or elongation. MRI: pending ASSESSMENT AND PLAN: This patient is a 60yom with Pmhx of HTN, HLD, depression, Hep C , alcohol dependency (1 pint vodka daily), and heroin use (last heroin injection 1995 & previously shared needles; Now snorts 1 bag heroid daily) admitted for acute change of mental status with hepatic encephalopathy. #BL basal ganglia hypodense foci: as per neuro to start the patient on ECasas 81mg with lipitor #Acute change of mental status due to hepatic encephalopathy/polysubstance abuse #Elevated ammonia level on lactulose if unable to swallow will give rectal ammonia #Acute transaminitis: will trend, avoid Tylenol , hep panel pending #Alcohol dependency/withdrawel continue with ativan protocol, thiamin iv , fa continue , check the electrolytes #s/p Fall: CT head negative for acute pathology. CT head & c-spine are as above. #HTN: continue amlodipine 5 mg. #HLD: continue Lipitor #Oral Thrush continue Nystatin oral suspension #Hx of depression: continue home trazodone #COVID pending #Thrombocytopenia: monitor DVT Px: SCds
[2020-05-26] MEDS: traZODone HCL 50 MG TABLET (FP) PO SCH (21:06)
[2020-05-26] MEDS: ATORVASTATIN CA 20 MG TABLET (FP) PO SCH (21:07)
[2020-05-27] MEDS: NYSTATIN 500,000 UNITS/5 ML SUSPENSION PO SCH ×5 (01:18→23:38)
[2020-05-27] MEDS: LORazepam 1 MG TABLET PO SCH ×4 (04:11→22:22)
[2020-05-27] MEDS: LACTULOSE 20 GM/30 ML UDC (FOR ORAL USE ONLY) PO SCH ×3 (06:01→21:04)
[2020-05-27] MEDS: POTASSIUM CHLORIDE TABS 20 MEQ TABLET.ER (FP) PO SCH ×4 (06:01→23:37)
[2020-05-27] MEDS: HEPARIN NA (PORCINE) 5,000 UNITS/ML 1ML VIAL SQ SCH ×3 (06:03→21:05)
--- NOTE | 2020-05-27 08:49 | PN ---
Progress Note (short form) - Note Progress Note: Neurology Chief Complaint: AMS History of Present Illness: 60M history of current active alcohol abuse/use disorder, HTN, HLD, Depression, hep C per patient, snorts 1 bag of heroin daily and drinks 1 pint of vodka daily presented to [facility] for detox. Patient had AMS and didn't meet criteria for rehab so was sent to ER. Noted to have elevated ammonia level and elevated LFTs. Given lactulose. Utox negative. Tmax 99.9. Denies nausea vomiting fever chest pain or SOB. denies diarrhea. Endorses chills. Used to inject heroin, last time in 1995. uSed to share needles. Patient had a fall as well. Patient seen at bedside and discussed with nurse, initial CT of the head demonstrated questionable lesions of the bilateral basal ganglia of unclear chronicity. Will order repeat CT head as initial was limited by motion artifact. I ordered repeat noncontrast head CT which was completed and reviewed and discussed with patient and was consistent with chronic basal ganglia infarct, no acute changes noted. The patient is more awake and responsive today though still confused. Active Medications Amlodipine Besylate (Norvasc -) 5 mg PO DAILY [facility] Last Admin: 05/26/20 10:25 Dose: 5 mg Documented by: Aspirin (Ecotrin -) 81 mg PO DAILY [facility] Atorvastatin Calcium (Lipitor -) 20 mg PO HS [facility] Last Admin: 05/26/20 21:07 Dose: 20 mg Documented by: Folic Acid (Folic Acid -) 1 mg PO DAILY [facility] Heparin Sodium (Porcine) (Heparin -) 5,000 unit SQ TID [facility] Last Admin: 05/27/20 06:03 Dose: 5,000 unit Documented by: Lactulose (Cephulac (Oral Use)) 20 gm PO TID [facility] Stop: 06/02/20 11:59 Last Admin: 05/27/20 06:01 Dose: 20 gm Documented by: Lactulose (Cephulac (Rectal Use)) 200 gm ID DAILY PRN PRN Reason: elevated ammonia Lorazepam (Ativan -) 1 mg PO 0500,1100,1700,2300 [facility] Stop: 05/27/20 23:01 Last Admin: 05/27/20 04:11 Dose: 1 mg Documented by: Lorazepam (Ativan -) 1 mg PO Q4H PRN PRN Reason: Symptoms of Withdrawal Stop: 05/27/20 23:59 Lorazepam (Ativan -) 0.5 mg PO Q6H JOE Stop: 05/28/20 23:01 Lorazepam (Ativan -) 0.5 mg PO Q4H PRN PRN Reason: Symptoms of Withdrawal Stop: 05/29/20 00:00 Lorazepam (Ativan -) 0.5 mg PO ONCE ONE Stop: 05/29/20 05:01 Nystatin (Nystatin Oral Suspension -) 500,000 units PO Q6HPO [facility] Last Admin: 05/27/20 06:03 Dose: 500,000 units Documented by: Potassium Chloride (K-Dur -) 20 meq PO Q6H JOE Stop: 05/28/20 10:59 Last Admin: 05/27/20 06:01 Dose: 20 meq Documented by: Thiamine HCl (Vitamin B1 Injection -) 200 mg IVPB DAILY [facility] Last Admin: 05/26/20 13:50 Dose: 200 mg Documented by: Trazodone HCl (Desyrel -) 50 mg PO HS [facility] Last Admin: 05/26/20 21:06 Dose: 50 mg Documented by: Physical Examination Vital Signs: Vital Signs Period Temp Pulse Resp BP Sys/Dee Pulse Ox Last 24 Hr 98.6 F-99.7 F 70-87 20-20 138-156/68-77 100 Constitutional: Yes: No Distress, Thin Eyes: Yes: EOM Intact. No: Sclera Icterus HENT: Yes: Atraumatic, Thrush Neck: Yes: Supple Cardiovascular: Yes: Tachycardia Respiratory: Yes: CTA Bilaterally Gastrointestinal: Yes: Soft. No: Tenderness Extremities: Yes: WNL Neuro: aawake, alert, moving all extremities equally, sensory intact, no slurred speech but does remain confused Labs: CBCD WBC 4.5 K/mm3 (4.0-10.0) 05/26/20 07:43 RBC 3.38 M/mm3 (4.00-5.60) L 05/26/20 07:43 Hgb 9.7 GM/dL (11.7-16.9) L 05/26/20 07:43 Hct 31.0 % (35.4-49) L 05/26/20 07:43 MCV 91.6 fl (80-96) 05/26/20 07:43 MCHC 31.2 g/dl (32.0-35.9) L 05/26/20 07:43 RDW 18.8 % (11.9-15.9) H 05/26/20 07:43 Plt Count 108 K/MM3 (134-434) L 05/26/20 07:43 MPV 8.0 fl (7.5-11.1) 05/26/20 07:43 CMP Sodium 148 mmol/L (136-145) H 05/26/20 07:43 Potassium 2.5 mmol/L (3.5-5.1) L* 05/26/20 07:43 Chloride 119 mmol/L (98-107) H 05/26/20 07:43 Carbon Dioxide 14 mmol/L (21-32) L 05/26/20 07:43 Anion Gap 16 MMOL/L (8-16) 05/26/20 07:43 BUN 6.2 mg/dL (7-18) L 05/26/20 07:43 Creatinine 0.8 mg/dL (0.55-1.3) 05/26/20 07:43 Random Glucose 91 mg/dL (74-106) 05/26/20 07:43 Calcium 8.1 mg/dL (8.5-10.1) L 05/26/20 07:43 Total Bilirubin 2.2 mg/dL (0.2-1) H 05/26/20 07:43 AST 87 U/L (15-37) H 05/26/20 07:43 ALT 50 U/L (13-61) 05/26/20 07:43 Alkaline Phosphatase 118 U/L (45-117) H 05/26/20 07:43 Total Protein 6.3 g/dl (6.4-8.2) L 05/26/20 07:43 Albumin 2.7 g/dl (3.4-5.0) L 05/26/20 07:43 CARDIAC ENZYMES Creatine Kinase 390 U/L (26-308) H 05/25/20 03:19 Troponin I 0.03 ng/ml (0.00-0.05) 05/25/20 03:19 Assessment/Plan 60M history of current active alcohol abuse/use disorder, HTN, HLD, Depression, hep C per patient, snorts 1 bag of heroin daily and drinks 1 pint of vodka daily presented to [facility] for detox. Patient had AMS and didn't meet criteria for rehab so was sent to ER. Noted to have elevated ammonia level and elevated LFTs. Given lactulose. Utox negative. Tmax 99.9. Denies nausea vomiting fever chest pain or SOB. denies diarrhea. Endorses chills. Used to inject heroin, last time in 1995. uSed to share needles. Patient had a fall as well. Patient seen at [facility] and discussed with nurse, initial CT of the head demonstrated questionable lesions of the bilateral basal ganglia of unclear chronicity. Will order repeat CT head as initial was limited by motion artifact. Nurse indicated patient seem to have some increased right sided difficulty which may indicate prior CVA. I ordered repeat noncontrast head CT which was completed and reviewed and discussed with patient and was consistent with chronic basal ganglia infarct, no acute changes noted. The patient is more awake and responsive today though still confused. Continue medical mgmt, optimization. Frequent reorientation recommended. Follow up regarding substance abuse, strict avoidance of drugs. Physical therapy as tolerated. Fall precautions.
[2020-05-27 09:21] LABS: HEMATOCRIT 31.9 % (35.4-49); MCH 28.9 pg (25.7-33.7); MCHC 31.4 g/dl (32.0-35.9); MEAN CELL VOLUME 92.2 fl (80-96); MEAN PLT VOLUME 8.2 fl (7.5-11.1); PLATELET COUNT 109 K/MM3 (134-434); RBC 3.46 M/mm3 (4.00-5.60); RDW 18.7 % (11.9-15.9); WHITE BLOOD COUNT 4.3 K/mm3 (4.0-10.0)
--- NOTE | 2020-05-27 10:00 | PN ---
Teaching Attending Note Name of Resident: Kulwant Montes De Oca ATTENDING PHYSICIAN STATEMENT I saw and evaluated the patient. I reviewed the resident's note and discussed the case with the resident. I agree with the resident's findings and plan as documented. SUBJECTIVE: NAD , unsteady on his legs, still some hallucinations OBJECTIVE: CBCD WBC 4.3 K/mm3 (4.0-10.0) 05/27/20 08:20 RBC 3.46 M/mm3 (4.00-5.60) L 05/27/20 08:20 Hgb 10.0 GM/dL (11.7-16.9) L 05/27/20 08:20 Hct 31.9 % (35.4-49) L 05/27/20 08:20 MCV 92.2 fl (80-96) 05/27/20 08:20 MCHC 31.4 g/dl (32.0-35.9) L 05/27/20 08:20 RDW 18.7 % (11.9-15.9) H 05/27/20 08:20 Plt Count 109 K/MM3 (134-434) L 05/27/20 08:20 MPV 8.2 fl (7.5-11.1) 05/27/20 08:20 CMP Sodium 148 mmol/L (136-145) H 05/26/20 07:43 Potassium 2.5 mmol/L (3.5-5.1) L* 05/26/20 07:43 Chloride 119 mmol/L (98-107) H 05/26/20 07:43 Carbon Dioxide 14 mmol/L (21-32) L 05/26/20 07:43 Anion Gap 16 MMOL/L (8-16) 05/26/20 07:43 BUN 6.2 mg/dL (7-18) L 05/26/20 07:43 Creatinine 0.8 mg/dL (0.55-1.3) 05/26/20 07:43 Random Glucose 91 mg/dL (74-106) 05/26/20 07:43 Calcium 8.1 mg/dL (8.5-10.1) L 05/26/20 07:43 Total Bilirubin 2.2 mg/dL (0.2-1) H 05/26/20 07:43 AST 87 U/L (15-37) H 05/26/20 07:43 ALT 50 U/L (13-61) 05/26/20 07:43 Alkaline Phosphatase 118 U/L (45-117) H 05/26/20 07:43 Total Protein 6.3 g/dl (6.4-8.2) L 05/26/20 07:43 Albumin 2.7 g/dl (3.4-5.0) L 05/26/20 07:43 CARDIAC ENZYMES Creatine Kinase 390 U/L (26-308) H 05/25/20 03:19 Troponin I 0.03 ng/ml (0.00-0.05) 05/25/20 03:19 PE: per resident's note CBCD WBC 4.3 K/mm3 (4.0-10.0) 05/27/20 08:20 RBC 3.46 M/mm3 (4.00-5.60) L 05/27/20 08:20 Hgb 10.0 GM/dL (11.7-16.9) L 05/27/20 08:20 Hct 31.9 % (35.4-49) L 05/27/20 08:20 MCV 92.2 fl (80-96) 05/27/20 08:20 MCHC 31.4 g/dl (32.0-35.9) L 05/27/20 08:20 RDW 18.7 % (11.9-15.9) H 05/27/20 08:20 Plt Count 109 K/MM3 (134-434) L 05/27/20 08:20 MPV 8.2 fl (7.5-11.1) 05/27/20 08:20 CMP Sodium 148 mmol/L (136-145) H 05/26/20 07:43 Potassium 2.5 mmol/L (3.5-5.1) L* 05/26/20 07:43 Chloride 119 mmol/L (98-107) H 05/26/20 07:43 Carbon Dioxide 14 mmol/L (21-32) L 05/26/20 07:43 Anion Gap 16 MMOL/L (8-16) 05/26/20 07:43 BUN 6.2 mg/dL (7-18) L 05/26/20 07:43 Creatinine 0.8 mg/dL (0.55-1.3) 05/26/20 07:43 Random Glucose 91 mg/dL (74-106) 05/26/20 07:43 Calcium 8.1 mg/dL (8.5-10.1) L 05/26/20 07:43 Total Bilirubin 2.2 mg/dL (0.2-1) H 05/26/20 07:43 AST 87 U/L (15-37) H 05/26/20 07:43 ALT 50 U/L (13-61) 05/26/20 07:43 Alkaline Phosphatase 118 U/L (45-117) H 05/26/20 07:43 Total Protein 6.3 g/dl (6.4-8.2) L 05/26/20 07:43 Albumin 2.7 g/dl (3.4-5.0) L 05/26/20 07:43 CARDIAC ENZYMES Creatine Kinase 390 U/L (26-308) H 05/25/20 03:19 Troponin I 0.03 ng/ml (0.00-0.05) 05/25/20 03:19 Current Medications Generic Name Dose Route Start Last Admin Trade Name Freq PRN Reason Stop Dose Admin Amlodipine Besylate 5 mg 05/26/20 10:00 05/26/20 10:25 Norvasc - PO 5 mg DAILY JOE Administration Aspirin 81 mg 05/27/20 10:00 Ecotrin - PO DAILY [facility] Atorvastatin Calcium 20 mg 05/26/20 22:00 05/26/20 21:07 Lipitor - PO 20 mg HS JOE Administration Folic Acid 1 mg 05/27/20 10:00 Folic Acid - PO DAILY [facility] Heparin Sodium (Porcine) 5,000 unit 05/25/20 22:00 05/27/20 06:03 Heparin - SQ 5,000 unit TID JOE Administration Lactulose 20 gm 05/26/20 12:00 05/27/20 06:01 Cephulac (Oral Use) PO 06/02/20 11:59 20 gm TID JOE Administration Lactulose 200 gm 05/26/20 14:36 Cephulac (Rectal Use) IN DAILY PRN elevated ammonia Lorazepam 1 mg 05/27/20 05:00 05/27/20 04:11 Ativan - PO 05/27/20 23:01 1 mg 0500,1100,1700,2300 JOE Administration Lorazepam 1 mg 05/25/20 16:06 Ativan - PO 05/27/20 23:59 Q4H PRN Symptoms of Withdrawal Lorazepam 0.5 mg 05/28/20 05:00 Ativan - PO 05/28/20 23:01 Q6H JOE Lorazepam 0.5 mg 05/28/20 00:00 Ativan - PO 05/29/20 00:00 Q4H PRN Symptoms of Withdrawal Lorazepam 0.5 mg 05/29/20 05:00 Ativan - PO 05/29/20 05:01 ONCE ONE Nystatin 500,000 units 05/25/20 18:00 05/27/20 06:03 Nystatin Oral Suspension - PO 500,000 units Q6HPO JOE Administration Potassium Chloride 20 meq 05/26/20 11:21 05/27/20 06:01 K-Dur - PO 05/28/20 10:59 20 meq Q6H JOE Administration Thiamine HCl 200 mg 05/26/20 13:00 05/26/20 13:50 Vitamin B1 Injection - IVPB 200 mg DAILY JOE Administration Trazodone HCl 50 mg 05/25/20 22:00 05/26/20 21:06 Desyrel - PO 50 mg HS JOE Administration Home Medications Medication Instructions Recorded Simvastatin [Zocor] 0 mg PO HS 06/30/16 Amlodipine Besylate [Norvasc -] 5 mg PO DAILY #30 tablet 07/15/16 Atorvastatin Ca [Lipitor] 10 mg PO HS #30 tablet 07/15/16 traZODone HCL [Desyrel -] 50 mg PO HS #30 tablet 07/16/16 microbiology 05/25/20 05:10 Urine - Urine Clean Catch Urine Culture - Final NO GROWTH OBTAINED Xray of the shoulder: no fx or dislocation CT of the head: small low attentuation foci in the basal ganglia,bl likely representing encephalolacia/chronic lacunar infarcts. utox: negative HIV: negative CT head: small b/l basal ganglia hypodense foci C-spine: Soft tissue density within C3-C4 intervertebral foramen. At C4, widening of the L sided vertebral canal which could be on the basis of vertebral artery dilatation or elongation. MRI: pending ASSESSMENT AND PLAN: This patient is a 60yom with Pmhx of HTN, HLD, depression, Hep C , alcohol dependency (1 pint vodka daily), and heroin use (last heroin injection 1995 & previously shared needles; Now snorts 1 bag heroid daily) admitted for acute change of mental status with hepatic encephalopathy. #BL basal ganglia hypodense foci: as per neuro to start the patient on ECasas 81mg with lipitor #Acute change of mental status due to hepatic encephalopathy/polysubstance abuse #Elevated ammonia level on lactulose if unable to swallow will give rectal ammonia , follow ammonia level #Acute transaminitis: will trend, avoid Tylenol , hep panel pending #Alcohol dependency/withdrawel continue with ativan protocol, thiamin iv , fa continue , check the electrolytes #s/p Fall: CT head negative for acute pathology. CT head & c-spine are as above. #HTN: continue amlodipine 5 mg. #HLD: continue Lipitor #Oral Thrush continue Nystatin oral suspension #Hx of depression: continue home trazodone #COVID pending #Thrombocytopenia: monitor DVT Px: SCds follow ammonia level fall precaution once stable ,back to rehab
[2020-05-27 10:12] LABS: ALBUMIN 2.8 g/dl (3.4-5.0); BILIRUBIN,TOTAL 2.2 mg/dL (0.2-1); BLOOD UREA NITROGEN 4.7 mg/dL (7-18); CALCIUM 8.3 mg/dL (8.5-10.1); CREATININE 0.8 mg/dL (0.55-1.3); MAGNESIUM 2.2 mg/dL (1.8-2.4); PHOSPHOROUS 2.9 mg/dL (2.5-4.9); TOT PROT 6.5 g/dl (6.4-8.2)
[2020-05-27] MEDS: THIAMINE HCL 200 MG/2 ML VIAL IVPB SCH (10:17)
[2020-05-27] MEDS: ASPIRIN COATED 81 MG TABLET.EC PO SCH (10:17)
[2020-05-27] MEDS: amLODIPine BESYLATE 5 MG TABLET (FP) PO SCH (10:17)
[2020-05-27] MEDS: FOLIC ACID 1 MG TABLET (FP) PO SCH (10:17)
[2020-05-27 11:40] LABS: POTASSIUM 2.7 mmol/L (3.5-5.1)
[2020-05-27] MEDS ORDERED: KCL 10 MEQ IVPB 10 MEQ/100 ML INFUS.BAG IVPB SCH (12:45)
--- NOTE | 2020-05-27 17:16 | PN ---
Physical Exam: SUBJECTIVE: Pt was agitated overnight and given Ativan. Patient seen and examined. Pt in NAD. OBJECTIVE: Vital Signs Period Temp Pulse Resp BP Sys/Dee Pulse Ox Last 24 Hr 98.1 F-99.0 F 70-88 20-20 138-156/68-87 100-100 GENERAL: Pt is thin man. Pt is lethargic. AAOX1 (person, thinks he's in [facility], states it's 03/26/2018) HEENT: NT/NC; sclera anicteric, No ptosis. Oral thrush improved. LUNGS: Breath sounds equal, clear to auscultation bilaterally, no wheezes, no crackles, no accessory muscle use. HEART: Regular rate and rhythm, S1, S2 without murmur, rub or gallop. ABDOMEN: Soft, nontender, nondistended, normoactive bowel sounds, no guarding, no rebound EXTREMITIES: warm, well-perfused, no edema. abrasions on R knee. NEUROLOGICAL: gait not observed, speech slurred. strength 4/5 lower extremities; 3/5 upper extremities. Sensation not assessed due to pt cooperation. PSYCH: Normal mood, normal affect. SKIN: Warm, dry, normal turgor, no rashes or lesions noted CIWA: 10 (hallucinating drinking orange juice, sweating, restless) Laboratory Results - last 24 hr 05/25/20 05/27/20 05/27/20 17:35 08:20 08:20 WBC 4.3 RBC 3.46 L Hgb 10.0 L Hct 31.9 L MCV 92.2 MCH 28.9 MCHC 31.4 L RDW 18.7 H Plt Count 109 L MPV 8.2 Sodium 144 Potassium 2.7 L* Chloride 119 H Carbon Dioxide 15 L Anion Gap 9 BUN 4.7 L Creatinine 0.8 Est GFR (CKD-EPI)AfAm 111.74 Est GFR (CKD-EPI)NonAf 96.41 Random Glucose 108 H Calcium 8.3 L Phosphorus 2.9 Magnesium 2.2 Total Bilirubin 2.2 H AST 106 H ALT 59 Alkaline Phosphatase 123 H Ammonia Total Protein 6.5 Albumin 2.8 L Hep A IgM Ab Confirm Negative Hep Bs Antigen Negative Hep B Core IgM Ab Negative Hepatitis C Ab (EIA) >11.0 H 05/27/20 16:00 WBC RBC Hgb Hct MCV MCH MCHC RDW Plt Count MPV Sodium Potassium Chloride Carbon Dioxide Anion Gap BUN Creatinine Est GFR (CKD-EPI)AfAm Est GFR (CKD-EPI)NonAf Random Glucose Calcium Phosphorus Magnesium Total Bilirubin AST ALT Alkaline Phosphatase Ammonia 92.90 H Total Protein Albumin Hep A IgM Ab Confirm Hep Bs Antigen Hep B Core IgM Ab Hepatitis C Ab (EIA) Active Medications Generic Name Dose Route Start Last Admin Trade Name Freq PRN Reason Stop Dose Admin Amlodipine Besylate 5 mg 05/26/20 10:00 05/27/20 10:17 Norvasc - PO 5 mg DAILY JOE Administration Aspirin 81 mg 05/27/20 10:00 05/27/20 10:17 Ecotrin - PO 81 mg DAILY OJE Administration Atorvastatin Calcium 20 mg 05/26/20 22:00 05/26/20 21:07 Lipitor - PO 20 mg HS JOE Administration Folic Acid 1 mg 05/27/20 10:00 05/27/20 10:17 Folic Acid - PO 1 mg DAILY JOE Administration Heparin Sodium (Porcine) 5,000 unit 05/25/20 22:00 05/27/20 14:38 Heparin - SQ 5,000 unit TID JOE Administration Lactulose 20 gm 05/26/20 12:00 05/27/20 14:38 Cephulac (Oral Use) PO 06/02/20 11:59 20 gm TID JOE Administration Lactulose 200 gm 05/26/20 14:36 Cephulac (Rectal Use) [place] DAILY PRN elevated ammonia Lorazepam 1 mg 05/27/20 05:00 05/27/20 10:28 Ativan - PO 05/27/20 23:01 1 mg 0500,1100,1700,2300 JOE Administration Lorazepam 1 mg 05/25/20 16:06 Ativan - PO 05/27/20 23:59 Q4H PRN Symptoms of Withdrawal Lorazepam 0.5 mg 05/28/20 05:00 Ativan - PO 05/28/20 23:01 Q6H JOE Lorazepam 0.5 mg 05/28/20 00:00 Ativan - PO 05/29/20 00:00 Q4H PRN Symptoms of Withdrawal Lorazepam 0.5 mg 05/29/20 05:00 Ativan - PO 05/29/20 05:01 ONCE ONE Nystatin 500,000 units 05/25/20 18:00 05/27/20 12:03 Nystatin Oral Suspension - PO 500,000 units Q6HPO JOE Administration Potassium Chloride 20 meq 05/26/20 11:21 05/27/20 12:03 K-Dur - PO 05/28/20 10:59 20 meq Q6H JOE Administration Thiamine HCl 200 mg 05/26/20 13:00 05/27/20 10:17 Vitamin B1 Injection - IVPB 200 mg DAILY JOE Administration Trazodone HCl 50 mg 05/25/20 22:00 05/26/20 21:06 Desyrel - PO 50 mg HS JOE Administration utox: negative HIV: negative CT head: small b/l basal ganglia hypodense foci repeat head CT: small low attenuation foci in basal ganglia b/l, likely encephalopathy/chronic lacunar infarct. C-spine: Soft tissue density within C3-C4 intervertebral foramen. At C4, widening of the L sided vertebral canal which could be on the basis of vertebral artery dilatation or elongation. MRI: pending shoulder x-ray: no bone or soft tissue abnormality NEGAIVE: Hep A IgM Ab, Hep Bs Antigen, Hep B core IgM Ab Hep C Ab: >11.0 ASSESSMENT/PLAN: 60 YO M PMH HTN, HLD, depression, Hep C, alcohol use disorder (1 pint vodka daily), and heroin use (last heroin injection 1995 & previously shared needles; Now snorts 1 bag heroid daily) p/w AMS and a fall after endorsing snorting heroin on 05/24/2020. Didn't meet criteria for rehab, so was refused by [facility] for detox. Admitted for AMS 2/2 hepatic encephalopathy. #AMS 2/2 hepatic encephalopathy 2/2 substance use disorder -ammonia improved from 93.4 to 92.9 -c/w lactulose PO, rectal if PO is not tolerated due to somnolence. -Hep C Ab: >11.0 #alcohol use disorder -utox negative -lorazepam as per [facility] protocol -IV Thiamine #Fall -CT head negative for acute pathology. CT head & c-spine are as above. -CT: small b/l basal ganglia hypodense foci; Neuro consult appreciated. -repeat head CT: small low attenuation foci in basal ganglia b/l, likely encephalopathy/chronic lacunar infarct. -MRI pending #HTN c/w amlodipine 5 mg. #HLD -c/w atorvastatin 10 mg #Thrush c/w Nystatin oral suspension #depression c/w trazodone #COVID pending #FEN -no IV fluids -hypokalemia; K+ 2.7 Replete w/ KCl PO. Monitor w/ BMP. Trend Phosphorus. -sodium controlled diet #DISPO maintain med surg Visit type - Emergency Visit Emergency Visit: Yes ED Registration Date: 05/25/20 Care time: The patient presented to the Emergency Department on the above date and was hospitalized for further evaluation of their emergent condition. - New Patient This patient is new to me today: No - Critical Care Critical Care patient: No ATTENDING PHYSICIAN STATEMENT I saw and evaluated the patient. I reviewed the resident's note and discussed the case with the resident. I agree with the resident's findings and plan as documented. SUBJECTIVE: OBJECTIVE: ASSESSMENT AND PLAN:
[2020-05-27] MEDS: traZODone HCL 50 MG TABLET (FP) PO SCH (21:04)
[2020-05-27] MEDS: ATORVASTATIN CA 20 MG TABLET (FP) PO SCH (21:05)
[2020-05-28] MEDS ORDERED: LORazepam 0.5 MG TABLET PO PRN
[2020-05-28] MEDS: LORazepam 0.5 MG TABLET PO SCH ×4 (06:01→23:45)
[2020-05-28] MEDS: NYSTATIN 500,000 UNITS/5 ML SUSPENSION PO SCH ×3 (06:01→17:54)
[2020-05-28] MEDS: HEPARIN NA (PORCINE) 5,000 UNITS/ML 1ML VIAL SQ SCH ×3 (06:02→23:44)
[2020-05-28] MEDS: POTASSIUM CHLORIDE TABS 20 MEQ TABLET.ER (FP) PO SCH ×4 (06:02→20:16)
[2020-05-28] MEDS: LACTULOSE 20 GM/30 ML UDC (FOR ORAL USE ONLY) PO SCH ×4 (06:02→23:45)
[2020-05-28 08:23] LABS: BASO % 1.1 % (0-2.0); EOS % 1.4 % (0-4.5); HEMATOCRIT 32.8 % (35.4-49); HEMOGLOBIN 10.5 GM/dL (11.7-16.9); LYMPH % 27.2 % (8-40); MCH 29.9 pg (25.7-33.7); MCHC 31.9 g/dl (32.0-35.9); MEAN CELL VOLUME 93.8 fl (80-96); MEAN PLT VOLUME 8.2 fl (7.5-11.1); MONO % 19.7 % (3.8-10.2); NEUT % 50.6 % (42.8-82.8); PLATELET COUNT 108 K/MM3 (134-434); RBC 3.49 M/mm3 (4.00-5.60); RDW 19.4 % (11.9-15.9); WHITE BLOOD COUNT 3.7 K/mm3 (4.0-10.0)
[2020-05-28 08:44] LABS: ALBUMIN 2.9 g/dl (3.4-5.0); BLOOD UREA NITROGEN 5.9 mg/dL (7-18); CALCIUM 8.4 mg/dL (8.5-10.1); MAGNESIUM 2.3 mg/dL (1.8-2.4); POTASSIUM 3.3 mmol/L (3.5-5.1)
[2020-05-28 08:46] LABS: BILIRUBIN,TOTAL 1.6 mg/dL (0.2-1); PHOSPHOROUS 3.4 mg/dL (2.5-4.9); TOT PROT 6.8 g/dl (6.4-8.2)
[2020-05-28 10:01] LABS: INR 1.54 (0.83-1.09); PROTHROMBIN TIME (PATIENT) 18.3 SEC (9.7-13.0)
[2020-05-28] MEDS: THIAMINE HCL 200 MG/2 ML VIAL IVPB SCH (10:10)
[2020-05-28] MEDS: amLODIPine BESYLATE 5 MG TABLET (FP) PO SCH (10:10)
[2020-05-28] MEDS: ASPIRIN COATED 81 MG TABLET.EC PO SCH (10:11)
[2020-05-28] MEDS: FOLIC ACID 1 MG TABLET (FP) PO SCH (10:11)
--- NOTE | 2020-05-28 13:00 | PN ---
Progress Note (short form) - Note Progress Note: Neurology Chief Complaint: AMS History of Present Illness: 60M history of current active alcohol abuse/use disorder, HTN, HLD, Depression, hep C per patient, snorts 1 bag of heroin daily and drinks 1 pint of vodka daily presented to [facility] for detox. Patient had AMS and didn't meet criteria for rehab so was sent to ER. Noted to have elevated ammonia level and elevated LFTs. Given lactulose. Utox negative. Tmax 99.9. Denies nausea vomiting fever chest pain or SOB. denies diarrhea. Endorses chills. Used to inject heroin, last time in 1995. uSed to share needles. Patient had a fall as well. Patient seen at bedside and discussed with nurse, initial CT of the head demonstrated questionable lesions of the bilateral basal ganglia of unclear chronicity. Will order repeat CT head as initial was limited by motion artifact. I ordered repeat noncontrast head CT which was completed and reviewed and discussed with patient and was consistent with chronic basal ganglia infarct, no acute changes noted. The patient is more awake and responsive today, ammonia level downtrending, down to 71 today. Continue to monitor levels, seems to be improving with mental status. Active Medications Amlodipine Besylate (Norvasc -) 5 mg PO DAILY [facility] Last Admin: 05/28/20 10:10 Dose: 5 mg Documented by: Aspirin (Ecotrin -) 81 mg PO DAILY [facility] Last Admin: 05/28/20 10:11 Dose: 81 mg Documented by: Atorvastatin Calcium (Lipitor -) 20 mg PO HS [facility] Last Admin: 05/27/20 21:05 Dose: 20 mg Documented by: Folic Acid (Folic Acid -) 1 mg PO DAILY [facility] Last Admin: 05/28/20 10:11 Dose: 1 mg Documented by: Heparin Sodium (Porcine) (Heparin -) 5,000 unit SQ TID [facility] Last Admin: 05/28/20 06:02 Dose: 5,000 unit Documented by: Lactulose (Cephulac (Rectal Use)) 200 gm VA DAILY PRN PRN Reason: elevated ammonia Lactulose (Cephulac (Oral Use)) 20 gm PO QID [facility] Stop: 06/02/20 11:29 Last Admin: 05/28/20 12:03 Dose: 20 gm Documented by: Lorazepam (Ativan -) 0.5 mg PO Q6H [facility] Stop: 05/28/20 23:01 Last Admin: 05/28/20 12:03 Dose: 0.5 mg Documented by: Lorazepam (Ativan -) 0.5 mg PO Q4H PRN PRN Reason: Symptoms of Withdrawal Stop: 05/29/20 00:00 Lorazepam (Ativan -) 0.5 mg PO ONCE ONE Stop: 05/29/20 05:01 Nystatin (Nystatin Oral Suspension -) 500,000 units PO Q6HPO [facility] Last Admin: 05/28/20 12:03 Dose: 500,000 units Documented by: Potassium Chloride (K-Dur -) 20 meq PO Q4H [facility] Stop: 05/28/20 19:16 Last Admin: 05/28/20 12:03 Dose: 20 meq Documented by: Thiamine HCl (Vitamin B1 Injection -) 200 mg IVPB DAILY [facility] Last Admin: 05/28/20 10:10 Dose: 200 mg Documented by: Trazodone HCl (Desyrel -) 50 mg PO HS [facility] Last Admin: 05/27/20 21:04 Dose: 50 mg Documented by: Physical Examination Vital Signs: Vital Signs Period Temp Pulse Resp BP Sys/Dee Pulse Ox Last 24 Hr 98 F-99.0 F 74-93 18-20 135-147/78-86 98 Constitutional: Yes: No Distress, Thin Eyes: Yes: EOM Intact. No: Sclera Icterus HENT: Yes: Atraumatic, Thrush Neck: Yes: Supple Cardiovascular: Yes: Tachycardia Respiratory: Yes: CTA Bilaterally Gastrointestinal: Yes: Soft. No: Tenderness Extremities: Yes: WNL Neuro: aawake, alert, moving all extremities equally, sensory intact, no slurred speech but does remain confused Labs: CBCD WBC 3.7 K/mm3 (4.0-10.0) L 05/28/20 06:35 RBC 3.49 M/mm3 (4.00-5.60) L 05/28/20 06:35 Hgb 10.5 GM/dL (11.7-16.9) L 05/28/20 06:35 Hct 32.8 % (35.4-49) L 05/28/20 06:35 MCV 93.8 fl (80-96) 05/28/20 06:35 MCHC 31.9 g/dl (32.0-35.9) L 05/28/20 06:35 RDW 19.4 % (11.9-15.9) H 05/28/20 06:35 Plt Count 108 K/MM3 (134-434) L 05/28/20 06:35 MPV 8.2 fl (7.5-11.1) 05/28/20 06:35 CMP Sodium 148 mmol/L (136-145) H 05/28/20 06:35 Potassium 3.3 mmol/L (3.5-5.1) L 05/28/20 06:35 Chloride 123 mmol/L (98-107) H 05/28/20 06:35 Carbon Dioxide 15 mmol/L (21-32) L 05/28/20 06:35 Anion Gap 10 MMOL/L (8-16) 05/28/20 06:35 BUN 5.9 mg/dL (7-18) L 05/28/20 06:35 Creatinine 1.0 mg/dL (0.55-1.3) 05/28/20 06:35 Calcium 8.4 mg/dL (8.5-10.1) L 05/28/20 06:35 Total Bilirubin 1.6 mg/dL (0.2-1) H 05/28/20 06:35 AST 112 U/L (15-37) H 05/28/20 06:35 ALT 68 U/L (13-61) H 05/28/20 06:35 Alkaline Phosphatase 129 U/L (45-117) H 05/28/20 06:35 Total Protein 6.8 g/dl (6.4-8.2) 05/28/20 06:35 Albumin 2.9 g/dl (3.4-5.0) L 05/28/20 06:35 Assessment/Plan 60M history of current active alcohol abuse/use disorder, HTN, HLD, Depression, hep C per patient, snorts 1 bag of heroin daily and drinks 1 pint of vodka daily presented to [facility] for detox. Patient had AMS and didn't meet criteria for rehab so was sent to ER. Noted to have elevated ammonia level and elevated LFTs. Given lactulose. Utox negative. Tmax 99.9. Denies nausea vomiting fever chest pain or SOB. denies diarrhea. Endorses chills. Used to inject heroin, last time in 1995. uSed to share needles. Patient had a fall as well. Patient seen at bedside and discussed with nurse, initial CT of the head demonstrated questionable lesions of the bilateral basal ganglia of unclear chronicity. Will order repeat CT head as initial was limited by motion artifact. Nurse indicated patient seem to have some increased right sided difficulty which may indicate prior CVA. I ordered repeat noncontrast head CT which was completed and reviewed and discussed with patient and was consistent with chronic basal ganglia infarct, no acute changes noted. The patient is more awake and responsive today though still confused. Continue medical mgmt, optimization. Frequent reorientation recommended. Follow up regarding substance abuse, strict avoidance of drugs. Ammonia level downtrending, down to 71 today. Continue to monitor levels, seems to be improving with mental status. Physical therapy as tolerated. Caution with sedative, psych consult if behavioral difficulties. Fall precautions.
--- NOTE | 2020-05-28 18:53 | PN ---
Teaching Attending Note Name of Resident: Arjun Amaya ATTENDING PHYSICIAN STATEMENT I saw and evaluated the patient. I reviewed the resident's note and discussed the case with the resident. I agree with the resident's findings and plan as documented. SUBJECTIVE:seen around 12 pm No fever or chills. No GARCIA , n pain, hungry and wanted to eat . No N/V. painin abd when he tries to reach his toes. OBJECTIVE: NAD, awake, alert, knows name , not location or year MMM, no thrush CV: RRR, no MRG Lungs: CTAB Ext: No edema or erythema on upper or lower extremities. No tremor , no asterexis Abd: soft, , NT, Nd , Nl BS . ASSESSMENT AND PLAN: 60 y/o man with h/o ETOH abuse, HTN, HLP, depression , hep C, heroin abuse, who presented with AMS and was found to have hepatic encephalopathy 1- Hepatic encephalopathy 2- ETOH withdrawal 3- Transaminitis: due to alcoholic hepatitis and possible undiagnosed cirrhosis 4- Non AG metabolic acidosis: Possible RTA 5- Chronic brain stem infarcts 6- pancytopenia plan: - shoulder , cxray, and CT of head all reviewed. - mental status is improving . - increase lactulose due to not achieving 3-4 BMs a day - cont detox with ativan - Possible RTA ( type I or II) . will get ABG in Am. possible renal consult. - cont asa - dc statin due to worsening LFTS - get US of abd and RUQ - obtain irion studies, B12, folate. - heparin sq PT eval
--- NOTE | 2020-05-28 21:34 | PN ---
Physical Exam: SUBJECTIVE: No overnight events. Patient seen and examined. NAD. Pt is more awake today. ROS negative. OBJECTIVE: Vital Signs Period Temp Pulse Resp BP Sys/Dee Pulse Ox Last 24 Hr 98 F-99.2 F 70-89 18-19 135-146/69-80 98-100 GENERAL: Pt is thin man. Pt is lethargic, but more awake than yesterday. AAOX1 (person, still thinks he's in [place], states it's 2019, but unable to state the month/time of year) HEENT: NT/NC; sclera anicteric, No ptosis. Oral thrush improved. LUNGS: Breath sounds equal, clear to auscultation bilaterally, no wheezes, no crackles, no accessory muscle use. HEART: Regular rate and rhythm, S1, S2 without murmur, rub or gallop. ABDOMEN: Soft, nontender, nondistended, normoactive bowel sounds, no guarding, no rebound EXTREMITIES: warm, well-perfused, no edema. abrasions on R knee. ulcer on R arm near previous IV site NEUROLOGICAL: gait not observed, speech slurred. strength 3/5 lower extremities; 3/5 upper extremities. Sensation intact in LE & RUE. Decreased sensation in L UE. B/L UE rigid. PSYCH: Normal mood, normal affect. SKIN: Warm, dry, normal turgor, no rashes or lesions noted CIWA: 2 (disoriented) Laboratory Results - last 24 hr 05/28/20 05/28/20 05/28/20 06:30 06:35 06:35 WBC 3.7 L RBC 3.49 L Hgb 10.5 L Hct 32.8 L MCV 93.8 MCH 29.9 MCHC 31.9 L RDW 19.4 H Plt Count 108 L MPV 8.2 Absolute Neuts (auto) 1.9 Neutrophils % 50.6 Lymphocytes % 27.2 Monocytes % 19.7 H Eosinophils % 1.4 D Basophils % 1.1 Nucleated RBC % 0 PT with INR INR Sodium 148 H Potassium 3.3 L Chloride 123 H Carbon Dioxide 15 L Anion Gap 10 BUN 5.9 L Creatinine 1.0 Est GFR (CKD-EPI)AfAm 93.73 Est GFR (CKD-EPI)NonAf 80.87 Random Glucose 99 Calcium 8.4 L Phosphorus 3.4 Magnesium 2.3 Total Bilirubin 1.6 H AST 112 H ALT 68 H Alkaline Phosphatase 129 H Ammonia 71.70 H Total Protein 6.8 Albumin 2.9 L 05/28/20 09:35 WBC RBC Hgb Hct MCV MCH MCHC RDW Plt Count MPV Absolute Neuts (auto) Neutrophils % Lymphocytes % Monocytes % Eosinophils % Basophils % Nucleated RBC % PT with INR 18.30 H INR 1.54 H Sodium Potassium Chloride Carbon Dioxide Anion Gap BUN Creatinine Est GFR (CKD-EPI)AfAm Est GFR (CKD-EPI)NonAf Random Glucose Calcium Phosphorus Magnesium Total Bilirubin AST ALT Alkaline Phosphatase Ammonia Total Protein Albumin Active Medications Generic Name Dose Route Start Last Admin Trade Name Freq PRN Reason Stop Dose Admin Amlodipine Besylate 5 mg 05/26/20 10:00 05/28/20 10:10 Norvasc - PO 5 mg DAILY JOE Administration Aspirin 81 mg 05/27/20 10:00 05/28/20 10:11 Ecotrin - PO 81 mg DAILY JOE Administration Folic Acid 1 mg 05/27/20 10:00 05/28/20 10:11 Folic Acid - PO 1 mg DAILY JOE Administration Heparin Sodium (Porcine) 5,000 unit 05/25/20 22:00 05/28/20 15:09 Heparin - SQ 5,000 unit TID JOE Administration Sodium Chloride 1,000 mls @ 75 mls/hr 05/28/20 19:00 1/2 Normal Saline IV 05/29/20 18:59 ASDIR JOE Lactulose 200 gm 05/26/20 14:36 Cephulac (Rectal Use) SC DAILY PRN elevated ammonia Lactulose 20 gm 05/28/20 11:30 05/28/20 17:54 Cephulac (Oral Use) PO 06/02/20 11:29 20 gm QID JOE Administration Lorazepam 0.5 mg 05/28/20 05:00 05/28/20 17:54 Ativan - PO 05/28/20 23:01 0.5 mg Q6H JOE Administration Lorazepam 0.5 mg 05/28/20 00:00 Ativan - PO 05/29/20 00:00 Q4H PRN Symptoms of Withdrawal Lorazepam 0.5 mg 05/29/20 05:00 Ativan - PO 05/29/20 05:01 ONCE ONE Nystatin 500,000 units 05/25/20 18:00 05/28/20 17:54 Nystatin Oral Suspension - PO 500,000 units Q6HPO JOE Administration Thiamine HCl 200 mg 05/26/20 13:00 05/28/20 10:10 Vitamin B1 Injection - IVPB 200 mg DAILY JOE Administration Trazodone HCl 50 mg 05/25/20 22:00 05/27/20 21:04 Desyrel - PO 50 mg HS JOE Administration repeat head CT: small low attenuation foci in basal ganglia b/l, likely encephalopathy/chronic lacunar infarct. Hep C Ab: >11.0 ASSESSMENT/PLAN: 60 YO M PMH HTN, HLD, depression, Hep C, alcohol use disorder (1 pint vodka daily), and heroin use (last heroin injection 1995 & previously shared needles; Now snorts 1 bag heroid daily) p/w AMS and a fall after endorsing snorting heroin on 05/24/2020. Didn't meet criteria for rehab, so was refused by [facility] for detox. Admitted for AMS 2/2 hepatic encephalopathy. #AMS 2/2 hepatic encephalopathy 2/2 substance use disorder -ammonia improved from 92.9 to 71.7 -increased lactulose to 20 gm PO QID because pt only had one bowel movements. Goal: 3-4 BMs/day rectal if PO is not tolerated due to somnolence. #alcohol use disorder -utox negative -lorazepam as per [facility] protocol. Last dose of lorazepam 5 AM tomorrow morning. -IV Thiamine -For alcoholic hepatitis: discriminant function score: 26. Steroids not indicated for score <32 #Fall -CT: small b/l basal ganglia hypodense foci; Neuro consult appreciated. -repeat head CT: small low attenuation foci in basal ganglia b/l, likely encephalopathy/chronic lacunar infarct. -MRI pending #Transaminitis -elevated AST/ALT due to alcohol use disorder. -abd ultrasound ordered #Non AG metabolic acidosis -bicarb low: non-anion gap acidosis. -will order ABG -may c/s renal for possible RTA #HTN c/w amlodipine 5 mg. #HLD -d/c atorvastatin 10 mg because AST/ALT increasing #Thrush d/c Nystatin oral suspension?? #depression c/w trazodone #COVID pending #FEN -no IV fluids -hypokalemia; K+ 2.7 Replete w/ KCl PO. Monitor w/ BMP. Trend Phosphorus. -sodium controlled diet #DISPO maintain med surg Visit type - Emergency Visit Emergency Visit: Yes ED Registration Date: 05/25/20 Care time: The patient presented to the Emergency Department on the above date and was hospitalized for further evaluation of their emergent condition. - New Patient This patient is new to me today: No - Critical Care Critical Care patient: No ATTENDING PHYSICIAN STATEMENT I saw and evaluated the patient. I reviewed the resident's note and discussed the case with the resident. I agree with the resident's findings and plan as documented. SUBJECTIVE: OBJECTIVE: ASSESSMENT AND PLAN:
[2020-05-28] MEDS: traZODone HCL 50 MG TABLET (FP) PO SCH (23:45)
[2020-05-29] MEDS: NYSTATIN 500,000 UNITS/5 ML SUSPENSION PO SCH ×4 (01:00→18:06)
[2020-05-29] MEDS: SODIUM CHLORIDE 0.45% 1,000 ML IV SCH ×2 (02:37→02:39)
[2020-05-29] MEDS ORDERED: LORazepam 0.5 MG TABLET PO ONE (05:00)
[2020-05-29] MEDS: HEPARIN NA (PORCINE) 5,000 UNITS/ML 1ML VIAL SQ SCH ×3 (05:59→23:27)
[2020-05-29 06:26] LABS: ARTERIAL BLD GAS O2 SATURATION 97.7 mmHg (95-98); ARTERIAL BLOOD GAS BASE EXCESS -6.1 mmol/L (-2-2); ARTERIAL BLOOD GAS pH 7.436 (7.350-7.450)
[2020-05-29 06:28] LABS: ALLENS TEST POSITIVE
--- NOTE | 2020-05-29 08:41 | PN ---
Progress Note (short form) - Note Progress Note: Neurology Chief Complaint: AMS History of Present Illness: 60M history of current active alcohol abuse/use disorder, HTN, HLD, Depression, hep C per patient, snorts 1 bag of heroin daily and drinks 1 pint of vodka daily presented to [facility] for detox. Patient had AMS and didn't meet criteria for rehab so was sent to ER. Noted to have elevated ammonia level and elevated LFTs. Given lactulose. Utox negative. Tmax 99.9. Denies nausea vomiting fever chest pain or SOB. denies diarrhea. Endorses chills. Used to inject heroin, last time in 1995. uSed to share needles. Patient had a fall as well. Patient seen at bedside and discussed with nurse, initial CT of the head demonstrated questionable lesions of the bilateral basal ganglia of unclear chronicity. Will order repeat CT head as initial was limited by motion artifact. I ordered repeat noncontrast head CT which was completed and reviewed and discussed with patient and was consistent with chronic basal ganglia infarct, no acute changes noted. The patient is more awake and responsive today, ammonia level downtrending, down to 71 yesterday. Continue to monitor levels, seems to be improving with mental status, hepatic encephalopathy can take days to weeks to completely resolve, patient making progress. Active Medications Amlodipine Besylate (Norvasc -) 5 mg PO DAILY [facility] Last Admin: 05/28/20 10:10 Dose: 5 mg Documented by: Aspirin (Ecotrin -) 81 mg PO DAILY [facility] Last Admin: 05/28/20 10:11 Dose: 81 mg Documented by: Folic Acid (Folic Acid -) 1 mg PO DAILY [facility] Last Admin: 05/28/20 10:11 Dose: 1 mg Documented by: Heparin Sodium (Porcine) (Heparin -) 5,000 unit SQ TID [facility] Last Admin: 05/29/20 05:59 Dose: 5,000 unit Documented by: Sodium Chloride (1/2 Normal Saline) 1,000 mls @ 75 mls/hr IV ASDIR [facility]PL[facility] Stop: 05/29/20 18:59 Last Admin: 05/29/20 02:39 Dose: 75 mls/hr Documented by: Lactulose (Cephulac (Rectal Use)) 200 gm [facility] DAILY PRN PRN Reason: elevated ammonia Lactulose (Cephulac (Oral Use)) 20 gm PO QID [facility] Stop: 06/02/20 11:29 Last Admin: 05/28/20 23:45 Dose: 20 gm Documented by: Nystatin (Nystatin Oral Suspension -) 500,000 units PO Q6HPO JOE Last Admin: 05/29/20 05:59 Dose: 500,000 units Documented by: Thiamine HCl (Vitamin B1 Injection -) 200 mg IVPB DAILY JOE Last Admin: 05/28/20 10:10 Dose: 200 mg Documented by: Trazodone HCl (Desyrel -) 50 mg PO HS [facility] BY [facility] Last Admin: 05/28/20 23:45 Dose: 50 mg Documented by: Physical Examination Vital Signs: Vital Signs Period Temp Pulse Resp BP Sys/Dee Pulse Ox Last 24 Hr 98.6 F-99.7 F 70-86 18-19 122-163/59-107 96-100 Constitutional: Yes: No Distress, Thin Eyes: Yes: EOM Intact. No: Sclera Icterus HENT: Yes: Atraumatic, Thrush Neck: Yes: Supple Cardiovascular: Yes: Tachycardia Respiratory: Yes: CTA Bilaterally Gastrointestinal: Yes: Soft. No: Tenderness Extremities: Yes: WNL Neuro: aawake, alert, moving all extremities equally, sensory intact, no slurred speech but does remain confused Labs: CBCD WBC 3.7 K/mm3 (4.0-10.0) L 05/28/20 06:35 RBC 3.49 M/mm3 (4.00-5.60) L 05/28/20 06:35 Hgb 10.5 GM/dL (11.7-16.9) L 05/28/20 06:35 Hct 32.8 % (35.4-49) L 05/28/20 06:35 MCV 93.8 fl (80-96) 05/28/20 06:35 MCHC 31.9 g/dl (32.0-35.9) L 05/28/20 06:35 RDW 19.4 % (11.9-15.9) H 05/28/20 06:35 Plt Count 108 K/MM3 (134-434) L 05/28/20 06:35 MPV 8.2 fl (7.5-11.1) 05/28/20 06:35 CMP Sodium 148 mmol/L (136-145) H 05/28/20 06:35 Potassium 3.3 mmol/L (3.5-5.1) L 05/28/20 06:35 Chloride 123 mmol/L (98-107) H 05/28/20 06:35 Carbon Dioxide 15 mmol/L (21-32) L 05/28/20 06:35 Anion Gap 10 MMOL/L (8-16) 05/28/20 06:35 BUN 5.9 mg/dL (7-18) L 05/28/20 06:35 Creatinine 1.0 mg/dL (0.55-1.3) 05/28/20 06:35 Random Glucose 99 mg/dL (74-106) 05/28/20 06:35 Calcium 8.4 mg/dL (8.5-10.1) L 05/28/20 06:35 Total Bilirubin 1.6 mg/dL (0.2-1) H 05/28/20 06:35 AST 112 U/L (15-37) H 05/28/20 06:35 ALT 68 U/L (13-61) H 05/28/20 06:35 Alkaline Phosphatase 129 U/L (45-117) H 05/28/20 06:35 Total Protein 6.8 g/dl (6.4-8.2) 05/28/20 06:35 Albumin 2.9 g/dl (3.4-5.0) L 05/28/20 06:35 CARDIAC ENZYMES Creatine Kinase 390 U/L (26-308) H 05/25/20 03:19 Troponin I 0.03 ng/ml (0.00-0.05) 05/25/20 03:19 Assessment/Plan 60M history of current active alcohol abuse/use disorder, HTN, HLD, Depression, hep C per patient, snorts 1 bag of heroin daily and drinks 1 pint of vodka daily presented to [facility] for detox. Patient had AMS and didn't meet criteria for rehab so was sent to ER. Noted to have elevated ammonia level and elevated LFTs. Given lactulose. Utox negative. Tmax 99.9. Denies nausea vomiting fever chest pain or SOB. denies diarrhea. Endorses chills. Used to inject heroin, last time in 1995. uSed to share needles. Patient had a fall as well. Patient seen at bedside and discussed with nurse, initial CT of the head demonstrated questionable lesions of the bilateral basal ganglia of unclear chronicity. Will order repeat CT head as initial was limited by motion artifact. Nurse indicated patient seem to have some increased right sided difficulty which may indicate prior CVA. I ordered repeat noncontrast head CT which was completed and reviewed and discussed with patient and was consistent with chronic basal ganglia infarct, no acute changes noted. The patient is more awake and responsive today though still confused. Continue medical mgmt, optimization. Frequent reorientation recommended. Follow up regarding substance abuse, strict avoidance of drugs. Ammonia level downtrending, down to 71 Continue to monitor levels, seems to be improving with mental status, hepatic encephalopathy can take days to weeks to completely resolve, patient making progress. Caution with sedative, psych consult if behavioral difficulties. Fall precautions.
[2020-05-29] MEDS: LACTULOSE 20 GM/30 ML UDC (FOR ORAL USE ONLY) PO SCH ×4 (09:03→23:26)
[2020-05-29] MEDS: amLODIPine BESYLATE 5 MG TABLET (FP) PO SCH (09:04)
[2020-05-29] MEDS: ASPIRIN COATED 81 MG TABLET.EC PO SCH (09:04)
[2020-05-29] MEDS: THIAMINE HCL 200 MG/2 ML VIAL IVPB SCH (09:04)
[2020-05-29] MEDS: FOLIC ACID 1 MG TABLET (FP) PO SCH (09:04)
[2020-05-29] MEDS ORDERED: MAG HYDROX/AL HYDROX/SIMETH 30 ML UNIT-DOSE CUP PO ONE (10:20)
[2020-05-29 11:54] LABS: BASO % 1.5 % (0-2.0); EOS % 1.7 % (0-4.5); HEMATOCRIT 32.6 % (35.4-49); LYMPH % 32.6 % (8-40); MCH 28.2 pg (25.7-33.7); MCHC 30.7 g/dl (32.0-35.9); MEAN PLT VOLUME 7.8 fl (7.5-11.1); MONO % 21.3 % (3.8-10.2); NEUT % 42.9 % (42.8-82.8); PLATELET COUNT 111 K/MM3 (134-434); RBC 3.54 M/mm3 (4.00-5.60); RDW 19.1 % (11.9-15.9); WHITE BLOOD COUNT 3.6 K/mm3 (4.0-10.0)
[2020-05-29 12:01] LABS: INR 1.52 (0.83-1.09)
[2020-05-29 12:35] LABS: ALBUMIN 2.7 g/dl (3.4-5.0); BILIRUBIN,TOTAL 1.2 mg/dL (0.2-1); CALCIUM 8.3 mg/dL (8.5-10.1); CREATININE 0.8 mg/dL (0.55-1.3); MAGNESIUM 2.1 mg/dL (1.8-2.4); PHOSPHOROUS 3.3 mg/dL (2.5-4.9); POTASSIUM 3.7 mmol/L (3.5-5.1); TOT PROT 6.5 g/dl (6.4-8.2)
[2020-05-29 13:27] LABS: ANISOCYTOSIS 1+; MACROCYTOSIS 0; PLATELET ESTIMATE DECREASED
[2020-05-29] MEDS ORDERED: LACTULOSE 20 GM/30 ML UDC (FOR RECTAL USE ONLY) PR ONE (15:30)
--- NOTE | 2020-05-29 18:38 | PN ---
Teaching Attending Note Name of Resident: Kulwant Montes De Oca ATTENDING PHYSICIAN STATEMENT I saw and evaluated the patient. I reviewed the resident's note and discussed the case with the resident. I agree with the resident's findings and plan as documented. SUBJECTIVE: no fever or chills. no pain, nO SOB. No events over night and he was more cooperative. restraints removed OBJECTIVE: NAD, awake, alert, knows name , not location or year MMM, no thrush CV: RRR, no MRG Lungs: CTAB Ext: No edema or erythema on upper or lower extremities. No tremor , ASSESSMENT AND PLAN: 60 y/o man with h/o ETOH abuse, HTN, HLP, depression , hep C, heroin abuse, who presented with AMS and was found to have hepatic encephalopathy 1- Hepatic encephalopathy 2- ETOH withdrawal 3- Transaminitis: due to alcoholic hepatitis and possible undiagnosed cirrhosis 4- Non AG metabolic acidosis 5- Chronic brain stem infarcts 6- pancytopenia plan: - mental status is improving . - not acheiving 3-4 BMS a day . give a lactulose enema today - cont lactulose 4 time a day - finished ativan detox - metabolic acidosis is likely due to bicarb loss through GI tract with diarhea. Bicarb improved - cont asa - off statin due to LFTS - US of abd and RUQpending - iron studies reviewed. ? some degree of iron def . - due to the CT scan findings , MRI of the c spine was ordered, will follow - heparin sq PT eval ASSESSMENT AND PLAN:
--- NOTE | 2020-05-29 19:22 | PN ---
Physical Exam: SUBJECTIVE: No overnight events. Patient seen and examined. NAD. ROS negative. Pt's mental status improved. OBJECTIVE: Vital Signs Period Temp Pulse Resp BP Sys/Dee Pulse Ox Last 24 Hr 98.1 F-99.7 F 79-88 18-18 117-163/54-107 96-96 GENERAL: Pt is thin man. Pt is lethargic, but more awake than yesterday. AAOX1 (person, recognizes that we're not in the [place] [facility], but unable to state exact location within [facility], states it's 2019, but unable to state the month/time of year) HEENT: NT/NC; sclera anicteric, No ptosis. LUNGS: Breath sounds equal, clear to auscultation bilaterally, no wheezes, no crackles, no accessory muscle use. HEART: Regular rate and rhythm, S1, S2 without murmur, rub or gallop. ABDOMEN: Soft, nontender, nondistended, normoactive bowel sounds, no guarding, no rebound EXTREMITIES: warm, well-perfused, no edema. abrasions on R knee. ulcer on R arm near previous IV site NEUROLOGICAL: gait not observed, speech improved PSYCH: Normal mood, normal affect. SKIN: Warm, dry, normal turgor, no rashes or lesions noted CIWA: 1 (disoriented) Laboratory Results - last 24 hr 05/28/20 05/29/20 05/29/20 20:46 06:10 11:36 WBC RBC Hgb Hct MCV MCH MCHC RDW Plt Count MPV Absolute Neuts (auto) Neutrophils % Neutrophils % (Manual) Band Neutrophils % Lymphocytes % Lymphocytes % (Manual) Monocytes % Monocytes % (Manual) Eosinophils % Eosinophils % (Manual) Basophils % Basophils % (Manual) Myelocytes % (Man) Promyelocytes % (Man) Blast Cells % (Manual) Nucleated RBC % Metamyelocytes Hypochromia Platelet Estimate Polychromasia Anisocytosis Macrocytosis Loyd Cells Fragmented RBCs PT with INR INR Anticoagulation Therapy No Result Required. Puncture Site Right brachial Patient Temperature No Result Required. ABG pH 7.436 ABG pCO2 25.50 L ABG pO2 96.0 ABG HCO3 16.8 L ABG O2 Sat (Measured) 97.7 ABG O2 Content No Result Required. ABG Base Excess -6.1 L Paco Test Positive Patient On Oxygen No O2 Delivery Device Room air Oxygen Flow Rate 21% Vent Mode No Result Required. Vent Rate No Result Required. Mechanical Rate No Result Required. PEEP No Result Required. Pressure Support Vent No Result Required. Sodium 144 Potassium 3.7 Chloride 117 H Carbon Dioxide 20 L Anion Gap 7 L BUN 5.0 L Creatinine 0.8 Est GFR (CKD-EPI)AfAm 111.74 Est GFR (CKD-EPI)NonAf 96.41 Random Glucose 101 Lactic Acid 1.4 Calcium 8.3 L Phosphorus 3.3 Magnesium 2.1 Iron 39 L TIBC 239 L Iron Saturation 16 L Unsaturated IBC 200 Ferritin 34.7 Total Bilirubin 1.2 H AST 114 H ALT 72 H Alkaline Phosphatase 119 H Total Protein 6.5 Albumin 2.7 L Vitamin B12 1046 H Serum Folate 36 H 05/29/20 05/29/20 11:36 11:36 WBC 3.6 L RBC 3.54 L Hgb 10.0 L Hct 32.6 L MCV 92.0 MCH 28.2 MCHC 30.7 L RDW 19.1 H Plt Count 111 L MPV 7.8 Absolute Neuts (auto) 1.6 Neutrophils % 42.9 Neutrophils % (Manual) 43.4 Band Neutrophils % 0.0 Lymphocytes % 32.6 Lymphocytes % (Manual) 34.4 Monocytes % 21.3 H Monocytes % (Manual) 15 H Eosinophils % 1.7 Eosinophils % (Manual) 4.0 Basophils % 1.5 Basophils % (Manual) 2.0 Myelocytes % (Man) 0 Promyelocytes % (Man) 0 Blast Cells % (Manual) 0 Nucleated RBC % 0 Metamyelocytes 0 Hypochromia 1+ Platelet Estimate Decreased Polychromasia 1+ Anisocytosis 1+ Macrocytosis 0 Loyd Cells 1+ Fragmented RBCs 1+ PT with INR 18.00 H INR 1.52 H Anticoagulation Therapy Puncture Site Patient Temperature ABG pH ABG pCO2 ABG pO2 ABG HCO3 ABG O2 Sat (Measured) ABG O2 Content ABG Base Excess Paco Test Patient On Oxygen O2 Delivery Device Oxygen Flow Rate Vent Mode Vent Rate Mechanical Rate PEEP Pressure Support Vent Sodium Potassium Chloride Carbon Dioxide Anion Gap BUN Creatinine Est GFR (CKD-EPI)AfAm Est GFR (CKD-EPI)NonAf Random Glucose Lactic Acid Calcium Phosphorus Magnesium Iron TIBC Iron Saturation Unsaturated IBC Ferritin Total Bilirubin AST ALT Alkaline Phosphatase Total Protein Albumin Vitamin B12 Serum Folate Active Medications Generic Name Dose Route Start Last Admin Trade Name Teresa PRN Reason Stop Dose Admin Amlodipine Besylate 5 mg 05/26/20 10:00 05/29/20 09:04 Norvasc - PO 5 mg DAILY JOE Administration Aspirin 81 mg 05/27/20 10:00 05/29/20 09:04 Ecotrin - PO 81 mg DAILY JOE Administration Folic Acid 1 mg 05/27/20 10:00 05/29/20 09:04 Folic Acid - PO 1 mg DAILY JOE Administration Heparin Sodium (Porcine) 5,000 unit 05/25/20 22:00 05/29/20 15:18 Heparin - SQ 5,000 unit TID JOE Administration Lactulose 20 gm 05/28/20 11:30 05/29/20 18:06 Cephulac (Oral Use) PO 06/02/20 11:29 20 gm QID JOE Administration Nystatin 500,000 units 05/25/20 18:00 05/29/20 18:06 Nystatin Oral Suspension - PO 500,000 units Q6HPO JOE Administration Thiamine HCl 200 mg 05/26/20 13:00 05/29/20 09:04 Vitamin B1 Injection - IVPB 200 mg DAILY JOE Administration Trazodone HCl 50 mg 05/25/20 22:00 05/28/20 23:45 Desyrel - PO 50 mg HS JOE Administration repeat head CT: small low attenuation foci in basal ganglia b/l, likely encephalopathy/chronic lacunar infarct. Hep C Ab: >11.0 ASSESSMENT/PLAN: 60 YO M PMH HTN, HLD, depression, Hep C, alcohol use disorder (1 pint vodka daily), and heroin use (last heroin injection 1995 & previously shared needles; Now snorts 1 bag heroid daily) p/w AMS and a fall after endorsing snorting heroin on 05/24/2020. Didn't meet criteria for rehab, so was refused by [facility] for detox. Admitted for AMS 2/2 hepatic encephalopathy. #AMS 2/2 hepatic encephalopathy 2/2 substance use disorder -ammonia improved from 92.9 to 71.7 -c/w lactulose 20 gm PO QID. Pt did not meet Goal of 3-4 BMs/day, so pt underwent a lactulose enema. #alcohol use disorder -utox negative -Last dose of lorazepam 5 AM this morning. -IV Thiamine #Fall -CT: small b/l basal ganglia hypodense foci; Neuro consult appreciated. repeat head CT: small low attenuation foci in basal ganglia b/l, likely encephalopathy/chronic lacunar infarct. -Cervical spine CT: increased R C3-C4 intervertebral foramen. C4, widening of L- sided vertebral canal, which could be on basis of bertebral artery dilatation or elongation. -c-spine MRI ordered. #Transaminitis -elevated AST/ALT due to alcohol use disorder. -abd ultrasound ordered #Non AG metabolic acidosis -bicarb low: non-anion gap acidosis. -bicarb improved #HTN c/w amlodipine 5 mg. #HLD -d/c atorvastatin 10 mg because AST/ALT increasing #Thrush d/c Nystatin oral suspension?? #depression c/w trazodone #COVID pending #FEN -no IV fluids -Monitor w/ BMP. -sodium controlled diet #DISPO maintain med surg Visit type - Emergency Visit Emergency Visit: Yes ED Registration Date: 05/25/20 Care time: The patient presented to the Emergency Department on the above date and was hospitalized for further evaluation of their emergent condition. - New Patient This patient is new to me today: No - Critical Care Critical Care patient: No ATTENDING PHYSICIAN STATEMENT I saw and evaluated the patient. I reviewed the resident's note and discussed the case with the resident. I agree with the resident's findings and plan as documented. SUBJECTIVE: OBJECTIVE: ASSESSMENT AND PLAN:
--- NOTE | 2020-05-29 19:42 | CONSULT ---
Consult Consult Specialty:: Nephrology Reason for Consultation:: met acidosis - History of Present Illness Chief Complaint: altered mental status History of Present Illness: Pt is a 60 year old male with pmhx of etoh abuse, htn, hld. depression, hep c, and heroin use who was sent from detox for altered mental status. He is a poor historian. I was called to evaluate him for met acidosis. He denies diarrhea or GI losses. His bicarb level has actually improved. He was actively drinking and snorting heroin at the time of admission. He denies dysuria or hematuria. - History Source History Provided By: Patient, Medical Record - Past Medical History Cardio/Vascular: Yes: HTN Hepatobiliary: Yes: Hepatitis C Infectious Disease: Yes: Other ([place] needles in the ) - Alcohol/Substance Use Hx Alcohol Use: Yes (3-4 pints of vodka) - Smoking History Smoking history: Unknown if ever smoked Have you smoked in the past 12 months: Yes Aproximately how many cigarettes per day: 4 Home Medications - Allergies Allergies/Adverse Reactions: Allergies Allergy/AdvReac Type Severity Reaction Status Date / Time No Known Allergies Allergy Verified 05/24/20 23:20 - Home Medications Home Medications: Ambulatory Orders Simvastatin [Zocor] 0 mg PO HS 06/30/16 Amlodipine Besylate [Norvasc -] 5 mg PO DAILY #30 tablet 07/15/16 Atorvastatin Ca [Lipitor] 10 mg PO HS #30 tablet 07/15/16 traZODone HCL [Desyrel -] 50 mg PO HS #30 tablet 07/16/16 Family Medical History Family History: Denies Review of Systems - Review of Systems Constitutional: reports: Malaise Eyes: reports: No Symptoms HENT: reports: No Symptoms Neck: reports: No Symptoms Cardiovascular: reports: No Symptoms Respiratory: reports: No Symptoms Gastrointestinal: reports: No Symptoms Genitourinary: reports: No Symptoms Musculoskeletal: reports: No Symptoms Integumentary: reports: No Symptoms Neurological: reports: No Symptoms Endocrine: reports: No Symptoms Hematology/Lymphatic: reports: No Symptoms Psychiatric: reports: No Symptoms Physical Exam Vital Signs: Vital Signs Temperature 98.1 F 05/29/20 14:27 Pulse Rate 81 05/29/20 14:27 Respiratory Rate 18 05/29/20 14:27 Blood Pressure 117/54 L 05/29/20 14:27 O2 Sat by Pulse Oximetry (%) 96 05/29/20 08:37 Constitutional: Yes: Calm Eyes: Yes: Conjunctiva Clear HENT: Yes: Atraumatic Neck: Yes: Supple Cardiovascular: Yes: S1, S2 Respiratory: Yes: CTA Bilaterally Gastrointestinal: Yes: Soft Renal/: Yes: WNL Musculoskeletal: Yes: WNL Edema: No Neurological: Yes: Oriented Psychiatric: Yes: Oriented Labs: CBC, BMP 05/29/20 11:36 05/29/20 11:36 Imaging - Results Chest X-ray: Report Reviewed Problem List - Problems (1) Acidosis Code(s): E87.2 - ACIDOSIS (2) AMS (altered mental status) Code(s): R41.82 - ALTERED MENTAL STATUS, UNSPECIFIED Assessment/Plan Current Medications Generic Name Dose Route Start Last Admin Trade Name Freq PRN Reason Stop Dose Admin Amlodipine Besylate 5 mg 05/26/20 10:00 05/29/20 09:04 Norvasc - PO 5 mg DAILY JOE Administration Aspirin 81 mg 05/27/20 10:00 05/29/20 09:04 Ecotrin - PO 81 mg DAILY JOE Administration Folic Acid 1 mg 05/27/20 10:00 05/29/20 09:04 Folic Acid - PO 1 mg DAILY JOE Administration Heparin Sodium (Porcine) 5,000 unit 05/25/20 22:00 05/29/20 15:18 Heparin - SQ 5,000 unit TID JOE Administration Lactulose 20 gm 05/28/20 11:30 05/29/20 18:06 Cephulac (Oral Use) PO 06/02/20 11:29 20 gm QID JOE Administration Nystatin 500,000 units 05/25/20 18:00 05/29/20 18:06 Nystatin Oral Suspension - PO 500,000 units Q6HPO JOE Administration Thiamine HCl 200 mg 05/26/20 13:00 05/29/20 09:04 Vitamin B1 Injection - IVPB 200 mg DAILY JOE Administration Trazodone HCl 50 mg 05/25/20 22:00 05/28/20 23:45 Desyrel - PO 50 mg HS JOE Administration Laboratory Tests 05/28/20 05/29/20 05/29/20 06:35 06:10 11:36 ABG pH 7.436 ABG HCO3 16.8 L Sodium 148 H 144 Potassium 3.3 L 3.7 Chloride 123 H 117 H Carbon Dioxide 15 L 20 L Anion Gap 10 7 L BUN 5.9 L 5.0 L Creatinine 0.8 Albumin 2.7 L Impression 1. metabolic acidosis 2. multi drug abuse 3. altered mental status 4. htn 5. hep c 6. hypokalemia Plan - check ua - send urine electrolytes - bicarb is improve - concern for rta vs gi losses - mental status appear to be improving - pt on lactulose - will order ua as well
[2020-05-29] MEDS: traZODone HCL 50 MG TABLET (FP) PO SCH (23:26)
[2020-05-30] MEDS: NYSTATIN 500,000 UNITS/5 ML SUSPENSION PO SCH ×5 (01:00→17:21)
[2020-05-30] MEDS: HEPARIN NA (PORCINE) 5,000 UNITS/ML 1ML VIAL SQ SCH ×3 (07:14→22:07)
[2020-05-30 08:49] LABS: BASO % 1.1 % (0-2.0); EOS % 1.7 % (0-4.5); HEMATOCRIT 31.1 % (35.4-49); HEMOGLOBIN 9.6 GM/dL (11.7-16.9); LYMPH % 34.8 % (8-40); MCH 28.2 pg (25.7-33.7); MCHC 30.8 g/dl (32.0-35.9); MEAN CELL VOLUME 91.6 fl (80-96); MEAN PLT VOLUME 7.9 fl (7.5-11.1); MONO % 23.1 % (3.8-10.2); NEUT % 39.3 % (42.8-82.8); PLATELET COUNT 106 K/MM3 (134-434); RDW 18.3 % (11.9-15.9); WHITE BLOOD COUNT 3.5 K/mm3 (4.0-10.0)
--- NOTE | 2020-05-30 08:59 | PN ---
Progress Note (short form) - Note Progress Note: Neurology Chief Complaint: AMS History of Present Illness: 60M history of current active alcohol abuse/use disorder, HTN, HLD, Depression, hep C per patient, snorts 1 bag of heroin daily and drinks 1 pint of vodka daily presented to [facility] for detox. Patient had AMS and didn't meet criteria for rehab so was sent to ER. Noted to have elevated ammonia level and elevated LFTs. Given lactulose. Utox negative. Tmax 99.9. Denies nausea vomiting fever chest pain or SOB. denies diarrhea. Endorses chills. Used to inject heroin, last time in 1995. uSed to share needles. Patient had a fall as well. Patient seen at bedside and discussed with nurse, initial CT of the head demonstrated questionable lesions of the bilateral basal ganglia of unclear chronicity. Will order repeat CT head as initial was limited by motion artifact. I ordered repeat noncontrast head CT which was completed and reviewed and discussed with patient and was consistent with chronic basal ganglia infarct, no acute changes noted. The patient is more awake and responsive, ammonia level downtrending, down to 71 on most recent labwork. As mentioned improving mental status, hepatic encephalopathy can take days to weeks to completely resolve, patient making progress. Noted lack of BMs, needed for appropriate absorption and benefit of lactulose. Active Medications Amlodipine Besylate (Norvasc -) 5 mg PO DAILY [facility] Last Admin: 05/29/20 09:04 Dose: 5 mg Documented by: Aspirin (Ecotrin -) 81 mg PO DAILY [facility] Last Admin: 05/29/20 09:04 Dose: 81 mg Documented by: Folic Acid (Folic Acid -) 1 mg PO DAILY [facility] Last Admin: 05/29/20 09:04 Dose: 1 mg Documented by: Heparin Sodium (Porcine) (Heparin -) 5,000 unit SQ TID [facility] Last Admin: 05/30/20 07:14 Dose: 5,000 unit Documented by: Lactulose (Cephulac (Oral Use)) 20 gm PO QID [facility] Stop: 06/02/20 11:29 Last Admin: 05/29/20 23:26 Dose: Not Given Documented by: Nystatin (Nystatin Oral Suspension -) 500,000 units PO Q6HPO [facility] Last Admin: 05/30/20 07:14 Dose: Not Given Documented by: Thiamine HCl (Vitamin B1 Injection -) 200 mg IVPB DAILY [facility] Last Admin: 05/29/20 09:04 Dose: 200 mg Documented by: Trazodone HCl (Desyrel -) 50 mg PO HS [facility] Last Admin: 05/29/20 23:26 Dose: Not Given Documented by: Physical Examination Vital Signs: Vital Signs Period Temp Pulse Resp BP Sys/Dee Pulse Ox Last 24 Hr 98 F-98.7 F 75-88 18-18 117-127/54-78 100 Constitutional: Yes: No Distress, Thin Eyes: Yes: EOM Intact. No: Sclera Icterus HENT: Yes: Atraumatic, Thrush Neck: Yes: Supple Cardiovascular: Yes: Tachycardia Respiratory: Yes: CTA Bilaterally Gastrointestinal: Yes: Soft. No: Tenderness Extremities: Yes: WNL Neuro: aawake, alert, moving all extremities equally, sensory intact, no slurred speech, conversive, not lethargic, aware he is in hospital Labs: CBCD WBC 3.5 K/mm3 (4.0-10.0) L 05/30/20 07:30 RBC 3.40 M/mm3 (4.00-5.60) L 05/30/20 07:30 Hgb 9.6 GM/dL (11.7-16.9) L 05/30/20 07:30 Hct 31.1 % (35.4-49) L 05/30/20 07:30 MCV 91.6 fl (80-96) 05/30/20 07:30 MCHC 30.8 g/dl (32.0-35.9) L 05/30/20 07:30 RDW 18.3 % (11.9-15.9) H 05/30/20 07:30 Plt Count 106 K/MM3 (134-434) L 05/30/20 07:30 MPV 7.9 fl (7.5-11.1) 05/30/20 07:30 CMP Sodium 144 mmol/L (136-145) 05/29/20 11:36 Potassium 3.7 mmol/L (3.5-5.1) 05/29/20 11:36 Chloride 117 mmol/L (98-107) H 05/29/20 11:36 Carbon Dioxide 20 mmol/L (21-32) L 05/29/20 11:36 Anion Gap 7 MMOL/L (8-16) L 05/29/20 11:36 BUN 5.0 mg/dL (7-18) L 05/29/20 11:36 Creatinine 0.8 mg/dL (0.55-1.3) 05/29/20 11:36 Random Glucose 101 mg/dL (74-106) 05/29/20 11:36 Calcium 8.3 mg/dL (8.5-10.1) L 05/29/20 11:36 Total Bilirubin 1.2 mg/dL (0.2-1) H 05/29/20 11:36 AST 114 U/L (15-37) H 05/29/20 11:36 ALT 72 U/L (13-61) H 05/29/20 11:36 Alkaline Phosphatase 119 U/L (45-117) H 05/29/20 11:36 Total Protein 6.5 g/dl (6.4-8.2) 05/29/20 11:36 Albumin 2.7 g/dl (3.4-5.0) L 05/29/20 11:36 CARDIAC ENZYMES Creatine Kinase 390 U/L (26-308) H 05/25/20 03:19 Troponin I 0.03 ng/ml (0.00-0.05) 05/25/20 03:19 Assessment/Plan 60M history of current active alcohol abuse/use disorder, HTN, HLD, Depression, hep C per patient, snorts 1 bag of heroin daily and drinks 1 pint of vodka daily presented to [facility] for detox. Patient had AMS and didn't meet criteria for rehab so was sent to ER. Noted to have elevated ammonia level and elevated LFTs. Given lactulose. Utox negative. Tmax 99.9. Denies nausea vomiting fever chest pain or SOB. denies diarrhea. Endorses chills. Used to inject heroin, last time in 1995. uSed to share needles. Patient had a fall as well. Patient seen at bedside and discussed with nurse, initial CT of the head demonstrated questionable lesions of the bilateral basal ganglia of unclear chronicity. Will order repeat CT head as initial was limited by motion artifact. Nurse indicated patient seem to have some increased right sided difficulty which may indicate prior CVA. I ordered repeat noncontrast head CT which was completed and reviewed and discussed with patient and was consistent with chronic basal ganglia infarct, no acute changes noted. Ammonia level downtrending, down to 71. Ammonia level downtrending, down to 71 on most recent labwork. As mentioned improving mental status, hepatic encephalopathy can take days to weeks to completely resolve, patient making progress. Noted lack of BMs, needed for appropriate absorption and benefit of lactulose. Caution with sedative, psych consult if behavioral difficulties. Fall precautions.
[2020-05-30 09:20] LABS: ALBUMIN 2.4 g/dl (3.4-5.0); BILIRUBIN,TOTAL 1.2 mg/dL (0.2-1); BLOOD UREA NITROGEN 3.5 mg/dL (7-18); CALCIUM 8.1 mg/dL (8.5-10.1); CREATININE 0.7 mg/dL (0.55-1.3); PHOSPHOROUS 3.2 mg/dL (2.5-4.9); POTASSIUM 3.8 mmol/L (3.5-5.1); TOT PROT 5.8 g/dl (6.4-8.2)
[2020-05-30] MEDS: FOLIC ACID 1 MG TABLET (FP) PO SCH (09:37)
[2020-05-30] MEDS: THIAMINE HCL 200 MG/2 ML VIAL IVPB SCH (09:37)
[2020-05-30] MEDS: LACTULOSE 20 GM/30 ML UDC (FOR ORAL USE ONLY) PO SCH ×4 (09:37→22:07)
[2020-05-30] MEDS: ASPIRIN COATED 81 MG TABLET.EC PO SCH (09:37)
[2020-05-30] MEDS: amLODIPine BESYLATE 5 MG TABLET (FP) PO SCH (09:37)
[2020-05-30 11:47] LABS: ANISOCYTOSIS 2+; MACROCYTOSIS 0; PLATELET ESTIMATE DECREASED
--- NOTE | 2020-05-30 15:15 | PN ---
Progress Note, Physician History of Present Illness: Pt seen and examined at bedside. He is awake and alert. - Current Medication List Current Medications: Active Medications Amlodipine Besylate (Norvasc -) 5 mg PO DAILY [facility] Last Admin: 05/30/20 09:37 Dose: 5 mg Documented by: Aspirin (Ecotrin -) 81 mg PO DAILY [facility] Last Admin: 05/30/20 09:37 Dose: 81 mg Documented by: Folic Acid (Folic Acid -) 1 mg PO DAILY [facility] Last Admin: 05/30/20 09:37 Dose: 1 mg Documented by: Heparin Sodium (Porcine) (Heparin -) 5,000 unit SQ TID [facility] Last Admin: 05/30/20 07:14 Dose: 5,000 unit Documented by: Lactulose (Cephulac (Oral Use)) 20 gm PO QID [facility] Stop: 06/02/20 11:29 Last Admin: 05/30/20 09:37 Dose: 20 gm Documented by: Nystatin (Nystatin Oral Suspension -) 500,000 units PO Q6HPO [facility] Last Admin: 05/30/20 14:08 Dose: Not Given Documented by: Thiamine HCl (Vitamin B1 Injection -) 200 mg IVPB DAILY [facility] Last Admin: 05/30/20 09:37 Dose: 200 mg Documented by: Trazodone HCl (Desyrel -) 50 mg PO HS [facility] Last Admin: 05/29/20 23:26 Dose: Not Given Documented by: - Objective Vital Signs: Vital Signs Temperature 98.2 F 05/30/20 09:42 Pulse Rate 78 05/30/20 09:42 Respiratory Rate 18 05/30/20 09:42 Blood Pressure 128/72 05/30/20 09:42 O2 Sat by Pulse Oximetry (%) 100 05/30/20 09:00 Constitutional: Yes: Calm Eyes: Yes: Conjunctiva Clear HENT: Yes: Atraumatic Cardiovascular: Yes: S1, S2 Respiratory: Yes: CTA Bilaterally Gastrointestinal: Yes: Soft Genitourinary: Yes: WNL Musculoskeletal: Yes: WNL Edema: No Neurological: Yes: Oriented Psychiatric: Yes: Oriented Labs: CBC, BMP 05/30/20 07:30 05/30/20 07:30 INR, PTT INR 1.52 (0.83-1.09) H 05/29/20 11:36 Problem List - Problems (1) Acidosis Code(s): E87.2 - ACIDOSIS (2) AMS (altered mental status) Code(s): R41.82 - ALTERED MENTAL STATUS, UNSPECIFIED Assessment/Plan Current Medications Generic Name Dose Route Start Last Admin Trade Name Teresa PRN Reason Stop Dose Admin Amlodipine Besylate 5 mg 05/26/20 10:00 05/30/20 09:37 Norvasc - PO 5 mg DAILY JOE Administration Aspirin 81 mg 05/27/20 10:00 05/30/20 09:37 Ecotrin - PO 81 mg DAILY JOE Administration Folic Acid 1 mg 05/27/20 10:00 05/30/20 09:37 Folic Acid - PO 1 mg DAILY JOE Administration Heparin Sodium (Porcine) 5,000 unit 05/25/20 22:00 05/30/20 07:14 Heparin - SQ 5,000 unit TID JOE Administration Lactulose 20 gm 05/28/20 11:30 05/30/20 09:37 Cephulac (Oral Use) PO 06/02/20 11:29 20 gm QID JOE Administration Nystatin 500,000 units 05/25/20 18:00 05/30/20 14:08 Nystatin Oral Suspension - PO Not Given Q6HPO JOE Thiamine HCl 200 mg 05/26/20 13:00 05/30/20 09:37 Vitamin B1 Injection - IVPB 200 mg DAILY JOE Administration Trazodone HCl 50 mg 05/25/20 22:00 05/29/20 23:26 Desyrel - PO Not Given HS JOE Impression 1. metabolic acidosis 2. multi drug abuse 3. altered mental status 4. htn 5. hep c 6. hypokalemia Plan - pt did not give urine - check urine lytes - if he had rta, it is improving - potassium stable - ph normal on last abg - pt denies diarrhea - concern for rta vs gi losses - mental status appear to be improving - pt on lactulose
--- NOTE | 2020-05-30 18:43 | PN ---
Teaching Attending Note Name of Resident: Kulwant Montes De Oca ATTENDING PHYSICIAN STATEMENT I saw and evaluated the patient. I reviewed the resident's note and discussed the case with the resident. I agree with the resident's findings and plan as documented. SUBJECTIVE: no fever or chills. He feels much better . had 3 BMs today OBJECTIVE: NAD, awake, alert, knows name , location , not year MMM, no thrush CV: RRR, no MRG Lungs: CTAB Abd: soft, NT, ND. Ext: No edema or erythema on upper or lower extremities. ASSESSMENT AND PLAN: 60 y/o man with h/o ETOH abuse, HTN, HLP, depression , hep C, heroin abuse, who presented with AMS and was found to have hepatic encephalopathy 1- Hepatic encephalopathy, much improved 2- ETOH withdrawal : resolved 3- Transaminitis: due to alcoholic hepatitis and possible undiagnosed cirrhosis 4- Non AG metabolic acidosis 5- Chronic brain stem infarcts 6- pancytopenia plan: - Mental status is much better today . very calm, cooperative, oriented, and provides more information - cont lactulose - finished ativan detox - metabolic acidosis is likely due to bicarb loss through GI tract with diarhea. Bicarb improved - cont asa - off statin due to LFTS. - US of RUQ showed CCY and dilation of the CBD. this could be due to post CCY. LFTs are improving , and bili is better. No TTP in RUQ. obstruction is not suspected. minimal dilation in pancreatic duct is non specific. - hepatic cyst to be followed -f/u with imaging as out pt - MRA reviewed. - heparin sq PT eval indicated unsteadiness. will ask for Recs tomorrow. he provided his sister's number, with whom he lives . sister could not be reached
--- NOTE | 2020-05-30 21:56 | PN ---
Physical Exam: SUBJECTIVE: No overnight events. Patient seen and examined. Endorses improvement. 3 BMs. Pt's mental status improved. OBJECTIVE: Vital Signs Period Temp Pulse Resp BP Sys/Dee Pulse Ox Last 24 Hr 98 F-98.4 F 75-78 18-18 120-128/72-76 100 GENERAL: Pt is thin man. Pt is awake and alert. AAOX2 (person, knows [facility], unable to state the year) HEENT: NT/NC; sclera anicteric, No ptosis. LUNGS: Breath sounds equal, clear to auscultation bilaterally, no wheezes, no crackles, no accessory muscle use. HEART: Regular rate and rhythm, S1, S2 without murmur, rub or gallop. ABDOMEN: Soft, nontender, nondistended, normoactive bowel sounds, no guarding, no rebound EXTREMITIES: warm, well-perfused, no edema. abrasions on R knee. ulcer on R arm near previous IV site NEUROLOGICAL: gait not observed, speech improved PSYCH: Normal mood, normal affect. SKIN: Warm, dry, normal turgor, no rashes or lesions noted Laboratory Results - last 24 hr 05/30/20 05/30/20 07:30 07:30 WBC 3.5 L RBC 3.40 L Hgb 9.6 L Hct 31.1 L MCV 91.6 MCH 28.2 MCHC 30.8 L RDW 18.3 H Plt Count 106 L MPV 7.9 Absolute Neuts (auto) 1.4 L Neutrophils % 39.3 L Neutrophils % (Manual) 40.2 L Band Neutrophils % 6.2 Lymphocytes % 34.8 Lymphocytes % (Manual) 35.1 Monocytes % 23.1 H Monocytes % (Manual) 14 H Eosinophils % 1.7 Eosinophils % (Manual) 1.0 Basophils % 1.1 Basophils % (Manual) 0.0 Myelocytes % (Man) 0 Promyelocytes % (Man) 0 Blast Cells % (Manual) 0 Nucleated RBC % 0 Metamyelocytes 0 Hypochromia 2+ Platelet Estimate Decreased Platelet Comment Present Polychromasia 0 Poikilocytosis 1+ Anisocytosis 2+ Microcytosis 2+ Macrocytosis 0 Sodium 140 Potassium 3.8 Chloride 114 H Carbon Dioxide 18 L Anion Gap 9 BUN 3.5 L Creatinine 0.7 Est GFR (CKD-EPI)AfAm 118.05 Est GFR (CKD-EPI)NonAf 101.85 Random Glucose 79 Calcium 8.1 L Phosphorus 3.2 Magnesium 2.0 Total Bilirubin 1.2 H AST 103 H ALT 70 H Alkaline Phosphatase 109 Total Protein 5.8 L Albumin 2.4 L Active Medications Generic Name Dose Route Start Last Admin Trade Name Freq PRN Reason Stop Dose Admin Amlodipine Besylate 5 mg 05/26/20 10:00 05/30/20 09:37 Norvasc - PO 5 mg DAILY JOE Administration Aspirin 81 mg 05/27/20 10:00 05/30/20 09:37 Ecotrin - PO 81 mg DAILY JOE Administration Folic Acid 1 mg 05/27/20 10:00 05/30/20 09:37 Folic Acid - PO 1 mg DAILY JOE Administration Heparin Sodium (Porcine) 5,000 unit 05/25/20 22:00 05/30/20 15:16 Heparin - SQ 5,000 unit TID JOE Administration Lactulose 20 gm 05/28/20 11:30 05/30/20 17:21 Cephulac (Oral Use) PO 06/02/20 11:29 20 gm QID JOE Administration Nystatin 500,000 units 05/25/20 18:00 05/30/20 17:21 Nystatin Oral Suspension - PO 500,000 units Q6HPO JOE Administration Thiamine HCl 200 mg 05/26/20 13:00 05/30/20 09:37 Vitamin B1 Injection - IVPB 200 mg DAILY JOE Administration Trazodone HCl 50 mg 05/25/20 22:00 05/29/20 23:26 Desyrel - PO Not Given HS JOE repeat head CT: small low attenuation foci in basal ganglia b/l, likely encephalopathy/chronic lacunar infarct. Hep C Ab: >11.0 ASSESSMENT/PLAN: 60 YO M PMH HTN, HLD, depression, Hep C, alcohol use disorder (1 pint vodka daily), and heroin use (last heroin injection 1995 & previously shared needles; Now snorts 1 bag heroid daily) p/w AMS and a fall after endorsing snorting heroin on 05/24/2020. Didn't meet criteria for rehab, so was refused by [facility] for detox. Admitted for AMS 2/2 hepatic encephalopathy. #AMS 2/2 hepatic encephalopathy 2/2 substance use disorder -ammonia improved from 92.9 to 71.7 -c/w lactulose -resolved #alcohol use disorder -utox negative -s/p ativan -IV Thiamine #Fall -CT: small b/l basal ganglia hypodense foci; Neuro consult appreciated. repeat head CT: small low attenuation foci in basal ganglia b/l, likely encephalopathy/chronic lacunar infarct. -Cervical spine CT: increased R C3-C4 intervertebral foramen. C4, widening of L- sided vertebral canal, which could be on basis of bertebral artery dilatation or elongation. -MRI cervical spine: Tortuosity of vertebral arteries at C3-4 level accounts for findings noted in Cervical Spine CT #Transaminitis -elevated AST/ALT due to alcohol use disorder. -abd ultrasound: Fatty liver VS hepatocellular disease. R hepatic lobe simple cyst measure 2.5 cm. Borderline dilatation of Common bile duct. Minimal dilaiton of pancreatic duct #Non AG metabolic acidosis -bicarb low: non-anion gap acidosis. -RTA VS GI losses -bicarb improved #HTN c/w amlodipine 5 mg. #HLD -d/c atorvastatin 10 mg because AST/ALT increasing #Thrush d/c Nystatin oral suspension?? #depression c/w trazodone #COVID pending #FEN -no IV fluids -Monitor w/ BMP. -sodium controlled diet #DISPO maintain med surg PT: walked 200 ft, Unsteadiness. Pt gave nurse his sister's phone number who he lives w/ . Pt gave permission to share information w/ sister. Unable to get through to sister after multiple phone call attempts. Visit type - Emergency Visit Emergency Visit: Yes ED Registration Date: 05/25/20 Care time: The patient presented to the Emergency Department on the above date and was hospitalized for further evaluation of their emergent condition. - New Patient This patient is new to me today: No - Critical Care Critical Care patient: No ATTENDING PHYSICIAN STATEMENT I saw and evaluated the patient. I reviewed the resident's note and discussed the case with the resident. I agree with the resident's findings and plan as documented. SUBJECTIVE: OBJECTIVE: ASSESSMENT AND PLAN:
[2020-05-30] MEDS: traZODone HCL 50 MG TABLET (FP) PO SCH (22:07)
[2020-05-31] MEDS: NYSTATIN 500,000 UNITS/5 ML SUSPENSION PO SCH ×3 (00:35→12:06)
[2020-05-31 00:56] LABS: EPI CELLS 16 /uL (0-25.1); HYALINE CASTS 2 /uL (0-3.1); PH,URINE 8.5 (5.0-8.0); URINE APPEARANCE CLEAR; URINE BACTERIA 2 /uL (0-1359); URINE BILIRUBIN NEGATIVE (NEGATIVE); URINE COLOR YELLOW; URINE GLUCOSE (UA) NEGATIVE (NEGATIVE); URINE KETONE NEGATIVE (NEGATIVE); URINE LEUK ESTERASE NEGATIVE (NEGATIVE); URINE NITRITE NEGATIVE (NEGATIVE); URINE PROTEIN NEGATIVE (NEGATIVE); URINE RBC 96 /uL (0-23.9); URINE UROBILINOGEN 0.2 mg/dL (0.2-1.0); URINE WBC 16 /uL (0-25.8)
[2020-05-31] MEDS: HEPARIN NA (PORCINE) 5,000 UNITS/ML 1ML VIAL SQ SCH ×2 (06:16→14:06)
--- NOTE | 2020-05-31 08:41 | PN ---
Progress Note (short form) - Note Progress Note: Neurology Chief Complaint: AMS History of Present Illness: 60M history of current active alcohol abuse/use disorder, HTN, HLD, Depression, hep C per patient, snorts 1 bag of heroin daily and drinks 1 pint of vodka daily presented to [facility] for detox. Patient had AMS and didn't meet criteria for rehab so was sent to ER. Noted to have elevated ammonia level and elevated LFTs. Given lactulose. Utox negative. Tmax 99.9. Denies nausea vomiting fever chest pain or SOB. denies diarrhea. Endorses chills. Used to inject heroin, last time in 1995. uSed to share needles. Patient had a fall as well. Patient seen at bedside and discussed with nurse, initial CT of the head demonstrated questionable lesions of the bilateral basal ganglia of unclear chronicity. Will order repeat CT head as initial was limited by motion artifact. I ordered repeat noncontrast head CT which was completed and reviewed and discussed with patient and was consistent with chronic basal ganglia infarct, no acute changes noted. The patient is more awake and responsive, ammonia level downtrending, down to 71 on most recent labwork. As mentioned improving mental status. MRI cervical spine and MRA neck completed, no hemodynamically significant stenosis noted. informed patient of the results.. He was ambulatory and only complaints were related to food Active Medications Amlodipine Besylate (Norvasc -) 5 mg PO DAILY [facility] Last Admin: 05/30/20 09:37 Dose: 5 mg Documented by: Aspirin (Ecotrin -) 81 mg PO DAILY [facility] Last Admin: 05/30/20 09:37 Dose: 81 mg Documented by: Folic Acid (Folic Acid -) 1 mg PO DAILY [facility] Last Admin: 05/30/20 09:37 Dose: 1 mg Documented by: Heparin Sodium (Porcine) (Heparin -) 5,000 unit SQ TID [facility] Last Admin: 05/31/20 06:16 Dose: 5,000 unit Documented by: Lactulose (Cephulac (Oral Use)) 20 gm PO QID [facility] Stop: 06/02/20 11:29 Last Admin: 05/30/20 22:07 Dose: 20 gm Documented by: Nystatin (Nystatin Oral Suspension -) 500,000 units PO Q6HPO [facility] Last Admin: 05/31/20 06:16 Dose: 500,000 units Documented by: Thiamine HCl (Vitamin B1 Injection -) 200 mg IVPB DAILY [facility] Last Admin: 05/30/20 09:37 Dose: 200 mg Documented by: Trazodone HCl (Desyrel -) 50 mg PO HS [facility] Last Admin: 05/30/20 22:07 Dose: 50 mg Documented by: Physical Examination Vital Signs: Vital Signs Period Temp Pulse Resp BP Sys/Dee Pulse Ox Last 24 Hr 98 F-98.7 F 65-82 18-18 125-133/65-77 100-100 Constitutional: Yes: No Distress, Thin Eyes: Yes: EOM Intact. No: Sclera Icterus HENT: Yes: Atraumatic, Thrush Neck: Yes: Supple Cardiovascular: Yes: Tachycardia Respiratory: Yes: CTA Bilaterally Gastrointestinal: Yes: Soft. No: Tenderness Extremities: Yes: WNL Neuro: aawake, alert, moving all extremities equally, sensory intact, no slurred speech, conversive, ambulatory, Labs: CBCD WBC 3.5 K/mm3 (4.0-10.0) L 05/30/20 07:30 RBC 3.40 M/mm3 (4.00-5.60) L 05/30/20 07:30 Hgb 9.6 GM/dL (11.7-16.9) L 05/30/20 07:30 Hct 31.1 % (35.4-49) L 05/30/20 07:30 MCV 91.6 fl (80-96) 05/30/20 07:30 MCHC 30.8 g/dl (32.0-35.9) L 05/30/20 07:30 RDW 18.3 % (11.9-15.9) H 05/30/20 07:30 Plt Count 106 K/MM3 (134-434) L 05/30/20 07:30 MPV 7.9 fl (7.5-11.1) 05/30/20 07:30 CMP Sodium 140 mmol/L (136-145) 05/30/20 07:30 Potassium 3.8 mmol/L (3.5-5.1) 05/30/20 07:30 Chloride 114 mmol/L (98-107) H 05/30/20 07:30 Carbon Dioxide 18 mmol/L (21-32) L 05/30/20 07:30 Anion Gap 9 MMOL/L (8-16) 05/30/20 07:30 BUN 3.5 mg/dL (7-18) L 05/30/20 07:30 Creatinine 0.7 mg/dL (0.55-1.3) 05/30/20 07:30 Calcium 8.1 mg/dL (8.5-10.1) L 05/30/20 07:30 Total Bilirubin 1.2 mg/dL (0.2-1) H 05/30/20 07:30 AST 103 U/L (15-37) H 05/30/20 07:30 ALT 70 U/L (13-61) H 05/30/20 07:30 Alkaline Phosphatase 109 U/L (45-117) 05/30/20 07:30 Total Protein 5.8 g/dl (6.4-8.2) L 05/30/20 07:30 Albumin 2.4 g/dl (3.4-5.0) L 05/30/20 07:30 Assessment/Plan 60M history of current active alcohol abuse/use disorder, HTN, HLD, Depression, hep C per patient, snorts 1 bag of heroin daily and drinks 1 pint of vodka daily presented to [facility] for detox. Patient had AMS and didn't meet criteria for rehab so was sent to ER. Noted to have elevated ammonia level and elevated LFTs. Given lactulose. Utox negative. Tmax 99.9. Denies nausea vomiting fever chest pain or SOB. denies diarrhea. Endorses chills. Used to inject heroin, last time in 1995. uSed to share needles. Patient had a fall as well. Patient seen at bedside and discussed with nurse, initial CT of the head demonstrated questionable lesions of the bilateral basal ganglia of unclear chronicity. Will order repeat CT head as initial was limited by motion artifact. Nurse indicated patient seem to have some increased right sided difficulty which may indicate prior CVA. I ordered repeat noncontrast head CT which was completed and reviewed and discussed with patient and was consistent with chronic basal ganglia infarct, no acute changes noted. Ammonia level downtrending, down to 71. Ammonia level downtrending, down to 71 on most recent labwork. As mentioned improving mental status, MRI cervical spine, MRA neck reviewed and discussed. Continue medical optimization, dispo as per primary team
--- NOTE | 2020-05-31 09:12 | CONSULT ---
Admitting History and Physical - Primary Care Physician PCP: Natividad Dorsey - Admission History of Present Illness: 60 y/o man with h/o ETOH abuse, HTN, HLP, depression , hep C, heroin abuse, who presented with AMS and was found to have hepatic encephalopathy 1- Hepatic encephalopathy, much improved 2- ETOH withdrawal : resolved 3- Transaminitis: due to alcoholic hepatitis and possible undiagnosed cirrhosis 4- Non AG metabolic acidosis 5- Chronic brain stem infarcts 6- pancytopenia Selected Entries 05/29/20 05/29/20 05/29/20 05:47 08:27 10:37 Breakfast 75% 75% Diet Tolerated Well Lunch 75% Supper 50% Temperature Pulse Rate Blood Pressure O2 Sat by Pulse Oximetry (%) Oxygen Delivery Method 05/29/20 05/29/20 05/30/20 21:37 22:00 03:00 Breakfast Diet Tolerated Well Well Lunch Supper 75% 75% Temperature 98 F Pulse Rate 75 Blood Pressure 120/75 O2 Sat by Pulse Oximetry (%) Oxygen Delivery Method 05/30/20 05/30/20 05/30/20 05:10 05:21 09:40 Breakfast 100% Diet Tolerated Well Well Lunch Supper 75% Temperature 98.4 F 98.4 F Pulse Rate 76 76 Blood Pressure 120/75 122/76 O2 Sat by Pulse Oximetry (%) Oxygen Delivery Method 05/30/20 05/30/20 05/30/20 09:42 21:05 22:00 Breakfast Diet Tolerated Well Well Lunch Supper 75% 75% Temperature 98.2 F Pulse Rate 78 Blood Pressure 128/72 O2 Sat by Pulse Oximetry (%) Oxygen Delivery Method 05/31/20 05/31/20 05/31/20 01:00 02:00 06:00 Breakfast Diet Tolerated Well Well Lunch Supper Temperature 98 F 98.7 F Pulse Rate 74 82 Blood Pressure 131/75 133/77 O2 Sat by Pulse Oximetry (%) Oxygen Delivery Method 05/31/20 05/31/20 05/31/20 08:17 08:35 08:36 Breakfast 100% Diet Tolerated Well Lunch Supper Temperature 98.7 F Pulse Rate 65 Blood Pressure 125/65 O2 Sat by Pulse 100 Oximetry (%) Oxygen Delivery Room Air Method Laboratory Tests 05/25/20 05/25/20 05/25/20 07:00 17:35 17:35 WBC COVID-19 (JUSTINO) Not detected Hep A IgM Ab Confirm Negative Hep Bs Antigen Negative Hep B Core IgM Ab Negative Hepatitis C Ab (EIA) >11.0 H HIV Ag/Ab Combo Qual Negative 05/30/20 07:30 WBC 3.5 L COVID-19 (JUSTINO) Hep A IgM Ab Confirm Hep Bs Antigen Hep B Core IgM Ab Hepatitis C Ab (EIA) HIV Ag/Ab Combo Qual Pt receiving Dys chopped/thin liquid, referred to assess for diet upgrade. History Source: Patient, Medical Record Limitations to Obtaining History: No Limitations - Past Medical History Cardiovascular: Yes: HTN Hepatobiliary: Yes: Hepatitis C Infectious Disease: Yes: Other ([place] needles in the s) - Smoking History Smoking history: Unknown if ever smoked Have you smoked in the past 12 months: Yes Aproximately how many cigarettes per day: 4 - Alcohol/Substance Use Hx Alcohol Use: Yes (3-4 pints of vodka) History - Admission Reason For Visit: ALTERED MENTAL STATUS, HEPATIC ENCEPHALOPATHY - Diagnostics CT Scan: Report Reviewed - General Mental Status: Alert and Oriented, Awake and Alert, Able to Follow Commands Attention: Intact Ability to Follow Directions: Excellent Head/Neck Control: WFL - Hearing Hearing: Normal Speech Evaluation - Communication Primary Language: SPANISH Communication: Yes: Within Normal Limits Oral Expression Ability: Yes: No Impairment - Speech Production Able to Make Needs Known: Yes: WNL Intelligibility: Yes: WNL - Speech Characteristics Voice Loudness: Normal Voice Pitch: Yes: Normal Voice Phonatory-based Quality: Yes: Normal Speech Pattern: Normal Speech Clarity: < 100% Nasal Resonance: Normal Articulation: Yes: Precise - Language/Auditory Comprehension Follows: Yes: 2 Stage Simple Commands Observation: Able to respond to yes/no queries: Yes, Yes/No Confusion: No, Comprehends Conversational Speech: Yes - Language/Verbal Expression Able to Respond to Simple Queries: Yes: WNL Able to Communicate Wants and Needs: Yes: WNL Functional Communication Status: Yes: WNL - Swallow Evaluation/Bedside Assessment Current Nutritional Intake: Dysphagia Minced, Thin Liquids Oral Secretions: Yes: WFL Dentition: Yes: Edentulous ("Dentures at home") Facial Symmetry at Rest: Symmetrical Facial Symmetry on Retraction: Symmetrical Facial Movement: Controlled Sensation: Normal Against Resistance Opening: Normal Against Resistance Closing: Normal Pucker Lips: Normal Smile: Normal Lingual Movement: Normal, Symmetric Lingual Speed of Movement: Normal Lingual Movement Strgth Against Opposition: Normal Lingual Movement Characteristics: Normal Velopharyngeal Movement: Normal Laryngeal Elevation: WFL Laryngeal Movement: Able to Palpate Rate of Intake: WFL Bolus Size: WFL Labial Seal: WFL Chewing: WFL (Pt demonstrated slow and careful mastication as dentures are at home) Oral Prep Time: WFL A-P Transit: WFL Pocketing: None Timing of Swallow: WFL Coughing/Throat Clear: No Change in Voice: No Recommendations - Speech Evaluation, Impression/Plan Impression: Pt demonstrated slow and careful mastication as dentures are at home - Dysphagia Impressions/Plan Swallowing Skills: WFL Dysphagia Impressions: No Impairment *Silent aspiration: cannot be R/O at bedside Dysphagia Treatment Plan: Small Bites, Safe Rate, Elevate HOB during feed Recommendations: Other (obtain dentures if possible) - Recommendations Diet Consistency: Regular (soft, easy to chew) Medication Administration: Whole with water Liquids: Thin Liquids
[2020-05-31 09:17] LABS: BASO % 1.2 % (0-2.0); EOS % 1.1 % (0-4.5); HEMATOCRIT 34.3 % (35.4-49); HEMOGLOBIN 10.7 GM/dL (11.7-16.9); LYMPH % 33.8 % (8-40); MCH 28.5 pg (25.7-33.7); MCHC 31.2 g/dl (32.0-35.9); MEAN CELL VOLUME 91.5 fl (80-96); MEAN PLT VOLUME 8.2 fl (7.5-11.1); MONO % 23.3 % (3.8-10.2); NEUT % 40.6 % (42.8-82.8); PLATELET COUNT 126 K/MM3 (134-434); RBC 3.76 M/mm3 (4.00-5.60); RDW 18.5 % (11.9-15.9); WHITE BLOOD COUNT 4.8 K/mm3 (4.0-10.0)
[2020-05-31] MEDS: FOLIC ACID 1 MG TABLET (FP) PO SCH (09:43)
[2020-05-31] MEDS: ASPIRIN COATED 81 MG TABLET.EC PO SCH (09:43)
[2020-05-31] MEDS: LACTULOSE 20 GM/30 ML UDC (FOR ORAL USE ONLY) PO SCH ×2 (09:43→14:06)
[2020-05-31] MEDS: THIAMINE HCL 200 MG/2 ML VIAL IVPB SCH (09:43)
[2020-05-31] MEDS: amLODIPine BESYLATE 5 MG TABLET (FP) PO SCH (09:43)
[2020-05-31 09:56] LABS: ALBUMIN 2.8 g/dl (3.4-5.0); BILIRUBIN,TOTAL 1.1 mg/dL (0.2-1); BLOOD UREA NITROGEN 3.7 mg/dL (7-18); CALCIUM 8.3 mg/dL (8.5-10.1); CREATININE 0.8 mg/dL (0.55-1.3); MAGNESIUM 2.2 mg/dL (1.8-2.4); PHOSPHOROUS 3.3 mg/dL (2.5-4.9); POTASSIUM 3.2 mmol/L (3.5-5.1); TOT PROT 6.8 g/dl (6.4-8.2)
[2020-05-31 10:22] LABS: ANISOCYTOSIS 1+; MACROCYTOSIS 1+; PLATELET ESTIMATE DECREASED
[2020-05-31 13:51] VITALS: BP 134/69; PULSE 72; TEMP 98.5
[2020-05-31] MEDS ORDERED: POTASSIUM CHLORIDE TABS 20 MEQ TABLET.ER (FP) PO ONE (14:13)
--- NOTE | 2020-05-31 14:22 | PN ---
Progress Note, Physician History of Present Illness: Pt seen and examined at bedside. He is awake and alert. He is tolerating diet. - Current Medication List Current Medications: Active Medications Amlodipine Besylate (Norvasc -) 5 mg PO DAILY [facility] Last Admin: 05/31/20 09:43 Dose: 5 mg Documented by: Aspirin (Ecotrin -) 81 mg PO DAILY [facility] Last Admin: 05/31/20 09:43 Dose: 81 mg Documented by: Folic Acid (Folic Acid -) 1 mg PO DAILY [facility] Last Admin: 05/31/20 09:43 Dose: 1 mg Documented by: Heparin Sodium (Porcine) (Heparin -) 5,000 unit SQ TID [facility] Last Admin: 05/31/20 14:06 Dose: 5,000 unit Documented by: Lactulose (Cephulac (Oral Use)) 20 gm PO QID [facility] Stop: 06/02/20 11:29 Last Admin: 05/31/20 14:06 Dose: 20 gm Documented by: Nystatin (Nystatin Oral Suspension -) 500,000 units PO Q6HPO [facility] Last Admin: 05/31/20 12:06 Dose: 500,000 units Documented by: Thiamine HCl (Vitamin B1 Injection -) 200 mg IVPB DAILY [facility] Last Admin: 05/31/20 09:43 Dose: 200 mg Documented by: Trazodone HCl (Desyrel -) 50 mg PO HS [facility] Last Admin: 05/30/20 22:07 Dose: 50 mg Documented by: - Objective Vital Signs: Vital Signs Temperature 98.5 F 05/31/20 13:50 Pulse Rate 72 05/31/20 13:50 Respiratory Rate 18 05/31/20 13:50 Blood Pressure 134/69 05/31/20 13:50 O2 Sat by Pulse Oximetry (%) 100 05/31/20 08:35 Constitutional: Yes: Calm Eyes: Yes: Conjunctiva Clear HENT: Yes: Atraumatic Neck: Yes: Supple Cardiovascular: Yes: S1, S2 Respiratory: Yes: CTA Bilaterally Gastrointestinal: Yes: Normal Bowel Sounds, Soft Genitourinary: Yes: WNL Musculoskeletal: Yes: WNL Edema: No Neurological: Yes: Oriented Labs: CBC, BMP 05/31/20 07:36 05/31/20 07:36 INR, PTT INR 1.52 (0.83-1.09) H 05/29/20 11:36 Problem List - Problems (1) Acidosis Code(s): E87.2 - ACIDOSIS (2) AMS (altered mental status) Code(s): R41.82 - ALTERED MENTAL STATUS, UNSPECIFIED Assessment/Plan Current Medications Generic Name Dose Route Start Last Admin Trade Name Teresa PRN Reason Stop Dose Admin Amlodipine Besylate 5 mg 05/26/20 10:00 05/31/20 09:43 Norvasc - PO 5 mg DAILY JEO Administration Aspirin 81 mg 05/27/20 10:00 05/31/20 09:43 Ecotrin - PO 81 mg DAILY JOE Administration Folic Acid 1 mg 05/27/20 10:00 05/31/20 09:43 Folic Acid - PO 1 mg DAILY JOE Administration Heparin Sodium (Porcine) 5,000 unit 05/25/20 22:00 05/31/20 14:06 Heparin - SQ 5,000 unit TID JOE Administration Lactulose 20 gm 05/28/20 11:30 05/31/20 14:06 Cephulac (Oral Use) PO 06/02/20 11:29 20 gm QID JOE Administration Nystatin 500,000 units 05/25/20 18:00 05/31/20 12:06 Nystatin Oral Suspension - PO 500,000 units Q6HPO JOE Administration Thiamine HCl 200 mg 05/26/20 13:00 05/31/20 09:43 Vitamin B1 Injection - IVPB 200 mg DAILY JOE Administration Trazodone HCl 50 mg 05/25/20 22:00 05/30/20 22:07 Desyrel - PO 50 mg HS JOE Administration Impression 1. metabolic acidosis 2. multi drug abuse 3. altered mental status 4. htn 5. hep c 6. hypokalemia Plan - bicarb normal - replace potassium - mag normal - pt denies diarrhea - will follow PRN - pt on lactulose
--- NOTE | 2020-05-31 15:48 | PN ---
Teaching Attending Note Name of Resident: Kulwant Montes De Oca ATTENDING PHYSICIAN STATEMENT I saw and evaluated the patient. I reviewed the resident's note and discussed the case with the resident. I agree with the resident's findings and plan as documented. SUBJECTIVE: No fever or chills. no GARCIA , no pain. OBJECTIVE: NAD, awake, alert. MMM CV: RRR, no MRG Lungs: CTAB Abd: soft, NT, ND. ASSESSMENT AND PLAN: 60 y/o man with h/o ETOH abuse, HTN, HLP, depression , hep C, heroin abuse, who presented with AMS and was found to have hepatic encephalopathy 1- Hepatic encephalopathy, resolved 2- ETOH withdrawal : resolved 3- Transaminitis: due to alcoholic hepatitis and possible undiagnosed cirrhosis 4- Non AG metabolic acidosis: resolved 5- Chronic brain stem infarcts 6- pancytopenia plan: - Mental status is much better today . very calm, cooperative, oriented, and provides more information - cont lactulose - bicarb is normal today - cont asa - off statin due to LFTS. - f/u with GI as out pt -f/u with imaging as out pt dc to [facility] rehab. today he states, he is homeless and does not live with his sister all the time .
--- NOTE | 2020-05-31 22:12 | DS ---
Physical Exam: SUBJECTIVE: No overnight events. Patient seen and examined. Endorses 3 BMs. Pt's mental status improved. OBJECTIVE: Vital Signs Period Temp Pulse Resp BP Sys/Dee Pulse Ox Last 24 Hr 98 F-98.7 F 65-82 18-18 125-134/65-77 100 PHYSICAL EXAM GENERAL: Pt is thin man. Pt is awake and alert. AAOX2 (person, knows [facility], unable to state the year) HEENT: NT/NC; sclera anicteric, No ptosis. LUNGS: Breath sounds equal, clear to auscultation bilaterally, no wheezes, no crackles, no accessory muscle use. HEART: Regular rate and rhythm, S1, S2 without murmur, rub or gallop. ABDOMEN: Soft, nontender, nondistended, normoactive bowel sounds, no guarding, no rebound EXTREMITIES: warm, well-perfused, no edema. abrasions on R knee. ulcer on R arm near previous IV site NEUROLOGICAL: gait not observed, speech improved PSYCH: Normal mood, normal affect. SKIN: Warm, dry, normal turgor, no rashes or lesions noted LABS Laboratory Results - last 24 hr 05/30/20 05/30/20 05/31/20 22:42 22:42 07:36 WBC 4.8 RBC 3.76 L Hgb 10.7 L Hct 34.3 L MCV 91.5 MCH 28.5 MCHC 31.2 L RDW 18.5 H Plt Count 126 L MPV 8.2 Absolute Neuts (auto) 1.9 Neutrophils % 40.6 L Neutrophils % (Manual) 46.9 Band Neutrophils % 0.0 Lymphocytes % 33.8 Lymphocytes % (Manual) 32.7 Monocytes % 23.3 H Monocytes % (Manual) 17 H Eosinophils % 1.1 Eosinophils % (Manual) 2.0 D Basophils % 1.2 Basophils % (Manual) 1.0 D Myelocytes % (Man) 0 Promyelocytes % (Man) 0 Blast Cells % (Manual) 0 Nucleated RBC % 0 Metamyelocytes 0 Hypochromia 1+ Platelet Estimate Decreased Polychromasia 1+ Poikilocytosis 1+ Anisocytosis 1+ Microcytosis 1+ Macrocytosis 1+ Schistocytes 1+ Sodium Potassium Chloride Carbon Dioxide Anion Gap BUN Creatinine Est GFR (CKD-EPI)AfAm Est GFR (CKD-EPI)NonAf Random Glucose Calcium Phosphorus Magnesium Total Bilirubin AST ALT Alkaline Phosphatase Total Protein Albumin Urine Color Yellow Urine Appearance Clear Urine pH 8.5 H Ur Specific [place] 1.004 L Urine Protein Negative Urine Glucose (UA) Negative Urine Ketones Negative Urine Blood 1+ H Urine Nitrite Negative Urine Bilirubin Negative Urine Urobilinogen 0.2 Ur Leukocyte Esterase Negative Urine WBC (Auto) 16 Urine RBC (Auto) 96 Urine Casts (Auto) 2 U Epithel Cells (Auto) 16 Urine Bacteria (Auto) 2 Ur Random Sodium 46 Ur Random Potassium < 9.0 L Ur Random Chloride 30 L 05/31/20 07:36 WBC RBC Hgb Hct MCV MCH MCHC RDW Plt Count MPV Absolute Neuts (auto) Neutrophils % Neutrophils % (Manual) Band Neutrophils % Lymphocytes % Lymphocytes % (Manual) Monocytes % Monocytes % (Manual) Eosinophils % Eosinophils % (Manual) Basophils % Basophils % (Manual) Myelocytes % (Man) Promyelocytes % (Man) Blast Cells % (Manual) Nucleated RBC % Metamyelocytes Hypochromia Platelet Estimate Polychromasia Poikilocytosis Anisocytosis Microcytosis Macrocytosis Schistocytes Sodium 142 Potassium 3.2 L Chloride 112 H Carbon Dioxide 22 Anion Gap 8 BUN 3.7 L Creatinine 0.8 Est GFR (CKD-EPI)AfAm 111.74 Est GFR (CKD-EPI)NonAf 96.41 Random Glucose 103 Calcium 8.3 L Phosphorus 3.3 Magnesium 2.2 Total Bilirubin 1.1 H AST 92 H ALT 78 H Alkaline Phosphatase 127 H Total Protein 6.8 Albumin 2.8 L Urine Color Urine Appearance Urine pH Ur Specific [place] Urine Protein Urine Glucose (UA) Urine Ketones Urine Blood Urine Nitrite Urine Bilirubin Urine Urobilinogen Ur Leukocyte Esterase Urine WBC (Auto) Urine RBC (Auto) Urine Casts (Auto) U Epithel Cells (Auto) Urine Bacteria (Auto) Ur Random Sodium Ur Random Potassium Ur Random Chloride HOSPITAL COURSE: 60 YO M PMH HTN, HLD, depression, Hep C, alcohol use disorder (1 pint vodka daily), and heroin use (last heroin injection 1995 & previously shared needles; Now snorts 1 bag heroid daily) p/w AMS and a fall after endorsing snorting heroin on 05/24/2020. Didn't meet criteria for rehab, so was refused by [facility] for detox, and pt came to [facility]. ED course was notable for elevated LFTs and T bili. Admitted for AMS 2/2 hepatic encephalopathy. Pt was given lactulose for hepatic encephalopathy, and ammonia improved from 92.9 to 71.7. Abd ultrasound showed Fatty liver VS hepatocellular disease. R hepatic lobe simple cyst measure 2.5 cm. Pt was referred to GI to f/u outpatient for elevated LFTs and T bili. For acute alcohol withdrawal, pt was given ativan & thiamine. Symptoms improved. For pt's h/o falls, CTH showed low attenuation foci in basal ganglia b/l, likely chronic lacunar infarct. Cervical spine CT showed widening vertebral canal, which could be on basis of vertebral artery dilatation/elongation, so MRI cervical spine was ordered. MRI cervical spine showed Tortuosity of vertebral arteries at C3-4 level accounts for findings noted in Cervical Spine CT HTN was managed w/ amlodipine 5 mg. Statins were NOT given for HLD due to elevated AST/ALT. PT evaluation showed pt was able to travel maximum distance of 300 ft after declining use of a walker. Date of Admission:05/25/20 utox: negative HIV: negative -CT: small b/l basal ganglia hypodense foci. repeat head CT: small low attenuation foci in basal ganglia b/l, likely encephalopathy/chronic lacunar infarct. -Cervical spine CT: soft tissue density within C3-C4 intervertebral foramen. C4, widening of L-sided vertebral canal, which could be on basis of vertebral artery dilatation or elongation. -MRI cervical spine: Tortuosity of vertebral arteries at C3-4 level accounts for findings noted in Cervical Spine CT shoulder x-ray: no bone or soft tissue abnormality Abd ultrasound: Fatty liver VS hepatocellular disease. R hepatic lobe simple cyst measure 2.5 cm. Borderline dilatation of Common bile duct. Minimal dilation of pancreatic duct Hep C Ab: >11.0 Date of Discharge: 05/31/20 Minutes to complete discharge: 40 Discharge Summary Problems reviewed: Yes Reason For Visit: ALTERED MENTAL STATUS, HEPATIC ENCEPHALOPATHY Condition: Improved - Instructions Diet, Activity, Other Instructions: You were evaluated in the hospital due to confusion with you falling out of bed and inability to communicate your issues. Labwork was notable for elevated liver enzymes, elevated ammonia which is suggestive of liver issues as the cause of your confusion. Your Head CT showed an old stoke. Your confusion improved after administration of medications to reduce the ammonia. Ultrasound of your liver was suggestive of fatty liver. Imaging of your head noted an old stroke. A neurologist was consulted and recommended some medications. There was a benign finding of an anatomical variation of one of the blood vessels in your neck. You were deemed stable for discharge. MEDICATIONS - RESUME Aspirin[ECOTRIN] 81mg every day - RESUME Amlodipine[NORVSAC] 5mg every day - START folic acid 1mg every day - START thiamine 100mg every day - lactulose 3-4 times daily to achieve 304 BMs every day - do not take cholesterol meds due to your liver for now - avoid alcohol - do not take trazodone as it tis metabolized in the liver FOLLOW-UP Please follow-up with neurologist, Dr. Miranda, regarding your previous stroke. Please follow-up with your primary care physician or come [facility] for general health maintenance. follow up with Dr. awad from GI to evaluate your liver Please avoid alcohol use. Please follow a low sodium/low fat/low sugar/low carb diet. If you experience new, worsening, or concerning symptoms, such as nausea, vomiting, Shortness of breath, chest pain, abdominal pain, etc. please return to the Emergency Department or call 911. you need follow up on the dialtionin pancreatic and biliary ducts . with GI Referrals: [facility] [Provider Group] Milton Miranda MD [Staff Physician] - Peter Awad DO [Staff Physician] - 2 Weeks Disposition: PHYSICAL REHABILATION FACILITY - Home Medications Comprehensive Discharge Medication List: Ambulatory Orders Amlodipine Besylate [Norvasc -] 5 mg PO DAILY 05/31/20 Aspirin Coated [Ecotrin -] 81 mg PO DAILY tablet.ec 05/31/20 Folic Acid - 1 mg PO DAILY tablet 05/31/20 Lactulose [Kristalose] 20 gm PO TID #90 packet 05/31/20 Thiamine HCl [Vitamin B-1] 100 mg PO DAILY #30 tablet 05/31/20 This patient is new to me today: No Emergency Visit: Yes ED Registration Date: 05/25/20 Care time: The patient presented to the Emergency Department on the above date and was hospitalized for further evaluation of their emergent condition. Critical Care patient: No - Discharge Referral Referred to [facility] Med P.C.: No ATTENDING PHYSICIAN STATEMENT I saw and evaluated the patient. I reviewed the resident's note and discussed the case with the resident. I agree with the resident's findings and plan as documented. SUBJECTIVE: OBJECTIVE: ASSESSMENT AND PLAN:
== END 2020-05-31 17:07 | DRG 279 ==
LOC: JER 23:07 → JERBED 05-25 08:09 → J6WEST-2 05-26 02:45 → J6S 05-27 20:25
PROVIDERS: ADMIT Internal Medicine; ATTEND Internal Medicine
DX: K72.90 Hepatic failure, unspecified without coma (principal); F10.10 Alcohol abuse, uncomplicated; F11.10 Opioid abuse, uncomplicated; I10 Essential (primary) hypertension; E78.5 Hyperlipidemia, unspecified; F32.9 Major depressive disorder, single episode, unspecified; E87.6 Hypokalemia; K70.10 Alcoholic hepatitis without ascites; E87.2 Acidosis; K70.30 Alcoholic cirrhosis of liver without ascites; D61.818 Other pancytopenia; G93.89 Other specified disorders of brain; D69.6 Thrombocytopenia, unspecified; B37.0 Candidal stomatitis
CPT/HCPCS: 36415; 36600; 70450-TC; 70548-TC; 71045-TC-FY; 72142-TC; 73030-TC-LT-FY; 76705-TC; 80048; 80053; 80074; 80076; 80307; 81003; 82140; 82436; 82550; 82553; 82607; 82728; 82746; 82803; 83540; 83550; 83605; 83735; 84100; 84133; 84300; 84484; 85025; 85027; 85610; 87040; 87086; 87389; 93005; 93010; 97116-GP; 97161-GP; 99285-25; A9579; J1644; U0003

== ENCOUNTER 2020-05-31 17:03 | Inpatient (IN) | payer OTHER ==
[2020-05-31 18:35] VITALS: BMI 23.2
--- NOTE | 2020-05-31 21:41 | HP ---
CIWA Score - Admission Criteria OASAS Guidelines: Admission for Medically Managed Detox: Requires at least one of the followin. CIWA greater than 12 2. Seizures within the past 24 hours 3. Delirium tremens within the past 24 hours 4. Hallucinations within the past 24 hours 5. Acute intervention needed for co occurring medical disorder 6. Acute intervention needed for co occurring psychiatric disorder 7. Severe withdrawal that cannot be handled at a lower level of care (continued vomiting, continued diarrhea, abnormal vital signs) requiring intravenous medication and/or fluids 8. Admitting History and Physical - Past Medical History Cardiovascular: Yes: HTN Hepatobiliary: Yes: Hepatitis C Infectious Disease: Yes: Other ([place] needles in the 90s) - Smoking History Smoking history: Unknown if ever smoked Have you smoked in the past 12 months: Yes Aproximately how many cigarettes per day: 4 - Alcohol/Substance Use Hx Alcohol Use: Yes (3-4 pints of vodka) Admission [facility] Chief Complaint: Here for rehab to stay off off. Allergies/Adverse Reactions: Allergies Allergy/AdvReac Type Severity Reaction Status Date / Time No Known Allergies Allergy Verified 05/24/20 23:20 History of Present Illness: 60 yo presents post detox heroin and alcohol, while hospitalized w/ hx alcohol use disorder. Presents alert and oriented x 3. Was sent to [facility] on 05/24/20 and admitted because of confusion. Discharged from [facility] today and brought to [facility] by ambulance. Hospital course reviewed and per discharge note from [facility] patient had and was treated for the followin- Hepatic encephalopathy, resolved 2- ETOH withdrawal : resolved 3- Transaminitis: due to alcoholic hepatitis and possible undiagnosed cirrhosis 4- Non AG metabolic acidosis: resolved 5- Chronic brain stem infarcts 6- pancytopenia Hospital labs reviewed. Discharge plan from [facility]: D/c statins Continue lactulose DANIEL: 0.0 UTox: Negative Alcohol use began at age 12. Was drinking 1 ppint/day. Last use 05/24/20 Heroin use began at age 12. Was using 2-3 bags/day/nasal. Last use 05/24/20 Nicotine use began at age 12. Smokes 2 cig/day. PMHx: Hepatitis C, HTN, Elevated LFT's, MHHx: Depression hx. not depressed now. Not on MH meds. Denies thoughts of harming self or others. SHx: Undomiciled. Recently unemployed. Denies lega issues. Patient Name: Gera David Date: 1960 Address: [address] [place] [address] Sex: Male Rx Written Rx Dispensed Drug Quantity Days Supply Prescriber Name Payment Method Dispenser 11/28/2019 11/28/2019 buprenorphine-naloxone 8-2 mg sl film 30 30 Polo Gold MD [facility] Date: 1960 Address: [place] [address] Sex: Male Rx Written Rx Dispensed Drug Quantity Days Supply Prescriber Name Payment Method Dispenser 04/26/2020 04/26/2020 buprenorphine-naloxone 8-2 mg sl film 30 30 Raj Moody Medicaid [facility] 03/29/2020 03/29/2020 buprenorphine-naloxone 8-2 mg sl film 30 30 Raj Moody Medicaid [facility] 02/23/2020 02/23/2020 buprenorphine-naloxone 8-2 mg sl film 30 30 Brian Farrar Medicaid [facility] 01/23/2020 01/23/2020 buprenorphine-naloxone 8-2 mg sl film 30 30 Moody Robert Medicaid [facility] 12/25/2019 12/25/2019 buprenorphine-naloxone 8-2 mg sl film 30 30 Wilkins, Robert Medicaid [facility] Exam Limitations: No Limitations - Ebola screening Have you traveled outside of the country in the last 21 days: No (Neg COVID 05/25/20) Have you had contact with anyone from an Ebola affected area: No Have you been sick,other than usual withdrawal symptoms: No Do you have a fever: No - Review of Systems Constitutional: Weight Stable EENT: reports: Blurred Vision, Dental Problems (Dentures at home. Chews and swallows ok) Respiratory: reports: No Symptoms reported Cardiac: reports: No Symptoms Reported GI: reports: Diarrhea, Abdominal cramping : reports: No Symptoms Reported Musculoskeletal: reports: No Symptoms Reported Integumentary: reports: Lesions ((R) elbow) Neuro: reports: Tremors Endocrine: reports: Increased Thirst Hematology: reports: No Symptoms Reported Psychiatric: reports: Judgement Intact, Mood/Affect Appropiate, Orientated x3 Patient History - Patient Medical History Hx Anemia: No Hx Asthma: No Hx Chronic Obstructive Pulmonary Disease (COPD): No Hx Cancer: No Hx Cardiac Disorders: No Hx Congestive Heart Failure: No Hx Hypertension: Yes (Tx with Norvasc 5 mg po) Hx Hypercholesterolemia: No Hx Pacemaker: No HX Cerebrovascular Accident: No Hx Seizures: No Hx Dementia: No Hx Diabetes: No Hx Gastrointestinal Disorders: No Hx Liver Disease: No Hx Genitourinary Disorders: No Hx Sexually Transmitted Disorders: Yes (Tx for gonorrhea in the past.) Hx Renal Disease (ESRD): No Hx Thyroid Disease: No Hx Human Immunodeficiency Virus (HIV): No Hx Hepatitis C: Yes Hx Depression: Yes Hx Suicide Attempt: No Hx Bipolar Disorder: No Hx Schizophrenia: No - Patient Surgical History Past Surgical History: Yes Hx Neurologic Surgery: No Hx Cataract Extraction: No Hx Cardiac Surgery: No Hx Lung Surgery: No Hx Breast Surgery: No Hx Breast Biopsy: No Hx Abdominal Surgery: No Hx Appendectomy: No Hx Cholecystectomy: Yes (in 2012) Hx Genitourinary Surgery: No Hx Section: No Hx Orthopedic Surgery: No Other Surgical History: left inguinal hernia repair 11/2011 Anesthesia Reaction: No - PPD History Date: 07/02/16 Results: 0 mm - Smoking Cessation Smoking history: Unknown if ever smoked Have you smoked in the past 12 months: Yes Aproximately how many cigarettes per day: 4 Cigars Per Day: 0 Hx Chewing Tobacco Use: No - Substance & Tx. History Hx Alcohol Use: Yes Hx Substance Use: Yes Substance Use Type: Alcohol, Heroin Hx Substance Use Treatment: Yes (detox, rehab, past Suboxone tx) Admission Physical Exam BHS - Vital Signs Vital Signs: Vital Signs - 24 hr 05/31/20 18:34 Temperature 98.1 F Pulse Rate 84 Respiratory 18 Rate Blood Pressure 134/82 - Physical General Appearance: Yes: Nourished HEENTM: Yes: EOMI, Hearing grossly Normal, Normocephalic, Normal Voice, Pharynx Normal, Other ((R) pupil fixed and dilated w/ + vision. (L) pupil = 2 mm and responds to light.) Respiratory: Yes: Lungs Clear, Normal Breath Sounds, No Respiratory Distress Neck: Yes: No masses,lesions,Nodules, Supple Breast: Yes: Breast Exam Deferred Cardiology: Yes: Regular Rhythm, Regular Rate (HR: 60), S1, S2 Abdominal: Yes: Flat, Soft, Tenderness ((L) UQ abdominal tenderness. No guarding. No rebound.) Genitourinary: Yes: Within Normal Limits Back: Yes: Normal Inspection Musculoskeletal: Yes: full range of Motion, Gait Steady Extremities: Yes: Normal Capillary Refill, Non-Tender, Tremors (mild) Neurological: Yes: gun profiler II-XII NML intact, Fully Oriented, Alert, Motor Strength 5/5, Normal Mood/Affect Integumentary: Yes: Normal Color, Dry, Warm, Other (Abrasions to (R) elbow, (R) knee and (L) upper arm.) Lymphatic: Yes: Within Normal Limits - Diagnostic (1) Alcohol use disorder, moderate, in early remission Current Visit: Yes Status: Acute (2) Opioid use disorder, moderate, in early remission Current Visit: Yes Status: Acute (3) Abrasions of multiple sites Current Visit: Yes Status: Chronic Comment: (L) arm, (R) elbow, (R) knee (4) Hepatic encephalopathy Current Visit: Yes Status: Resolved Comment: Recent resolution - on lactulose (5) Essential hypertension Current Visit: Yes Status: Chronic (6) Nicotine dependence Current Visit: Yes Status: Chronic Qualifiers: Nicotine product type: cigarettes Substance use status: uncomplicated Qualified Code(s): F17.210 - Nicotine dependence, cigarettes, uncomplicated (7) Pupil disorder Current Visit: Yes Status: Chronic Comment: (R) pupil fixed and dilated r/t old trauma. (L) pupil reactive to light. (8) History of hepatitis C Current Visit: Yes Status: Chronic (9) Abdominal tenderness, left upper quadrant Current Visit: Yes Status: Chronic Qualifiers: Presence of rebound: absent Qualified Code(s): R10.812 - Left upper quadrant abdominal tenderness Comment: No rebound, no guarding Cleared for Admission BHS - Detox or Rehab Claeared for Rehab Admission: Yes Breathalyzer - Breathalyzer Breathalyzer: 0 Urine Drug Screen - Test Device Lot number: [id number] Expiration date: 07/22/21 - Control Is test valid?: Yes - Results Drug screen NEGATIVE: Yes Inpatient Rehab Admission - Rehab Decision to Admit Inpatient rehab admission?: Yes - Initial Determination Are CD services needed?: Yes Free of communicable disease: Yes Not in need of hospitalization: Yes - Rehab Admission Criteria Previous failed treatment: Yes Poor recovery environment: Yes Comorbidities: Yes Lacks judgement: No Patient is meeting Inpatient Rehab admission criteria:: Yes
[2020-05-31] MEDS ORDERED: P-EPHED 60MG/TRIPROLIDI 2.5MG TABLET PO PRN (23:30)
[2020-05-31] MEDS ORDERED: guaiFENesin 200 MG/10 ML 10 ML UNIT-DOSE CUPS PO PRN (23:30)
[2020-05-31] MEDS ORDERED: ACETAMINOPHEN 325 MG TABLET (FP) PO PRN (23:30)
[2020-05-31] MEDS ORDERED: LOPERAMIDE HCL 2 MG CAPSULE PO PRN (23:30)
[2020-05-31] MEDS ORDERED: MAGNESIUM HYDROX 2400MG/30ML ORAL SUSPENSION 30 ML CUP PO PRN (23:30)
[2020-05-31] MEDS ORDERED: MAGNESIUM CITRATE 300 ML BOTTLE PO PRN (23:30)
[2020-05-31] MEDS ORDERED: PANTOPRAZOLE 20 MG TABLET PO ONE (23:46)
[2020-06-01] MEDS: MELATONIN 5 MG TABLETS PO SCH ×2 (00:20→21:43)
[2020-06-01] MEDS: BACITRACIN 0.9 GM PACKET TP SCH ×3 (00:25→21:43)
[2020-06-01] MEDS: hydrOXYzine PAMOATE 25 MG CAPSULE (FP) PO SCH ×5 (06:15→21:44)
[2020-06-01] MEDS: LACTULOSE 20 GM/30 ML UDC (FOR ORAL USE ONLY) PO SCH ×3 (06:15→21:44)
[2020-06-01] MEDS: PRENATAL VITAMINS W/ FOLIC ACID TABLET (FP) PO SCH (09:27)
[2020-06-01] MEDS: amLODIPine BESYLATE 5 MG TABLET (FP) PO SCH (09:27)
[2020-06-01] MEDS: NICOTINE 7 MG/24 HOURS TOPICAL PATCH TD SCH (09:27)
[2020-06-01] MEDS: ASPIRIN COATED 81 MG TABLET.EC PO SCH (09:27)
[2020-06-01] MEDS: NICOTINE POLACRILEX 2 MG GUM BC PRN (09:28)
[2020-06-01] MEDS: THIAMINE HCL 100 MG TABLET (FP) PO SCH (21:43)
[2020-06-02 06:24] LABS: EPI CELLS 10 /uL (0-25.1); HYALINE CASTS 0 /uL (0-3.1); PH,URINE 7.5 (5.0-8.0); URINE APPEARANCE CLEAR; URINE BACTERIA 6 /uL (0-1359); URINE BILIRUBIN NEGATIVE (NEGATIVE); URINE COLOR YELLOW; URINE GLUCOSE (UA) NEGATIVE (NEGATIVE); URINE KETONE NEGATIVE (NEGATIVE); URINE LEUK ESTERASE TRACE (NEGATIVE); URINE NITRITE NEGATIVE (NEGATIVE); URINE PROTEIN NEGATIVE (NEGATIVE); URINE RBC 6 /uL (0-23.9); URINE WBC 15 /uL (0-25.8)
[2020-06-02] MEDS: LACTULOSE 20 GM/30 ML UDC (FOR ORAL USE ONLY) PO SCH ×3 (06:46→21:05)
[2020-06-02] MEDS: hydrOXYzine PAMOATE 25 MG CAPSULE (FP) PO SCH ×5 (06:46→21:04)
[2020-06-02] MEDS: amLODIPine BESYLATE 5 MG TABLET (FP) PO SCH (10:35)
[2020-06-02] MEDS: BACITRACIN 0.9 GM PACKET TP SCH ×2 (10:36→21:05)
[2020-06-02] MEDS: PRENATAL VITAMINS W/ FOLIC ACID TABLET (FP) PO SCH (10:36)
[2020-06-02] MEDS: ASPIRIN COATED 81 MG TABLET.EC PO SCH (10:36)
[2020-06-02] MEDS: NICOTINE 7 MG/24 HOURS TOPICAL PATCH TD SCH (10:36)
[2020-06-02] MEDS: THIAMINE HCL 100 MG TABLET (FP) PO SCH (21:03)
[2020-06-02] MEDS: MELATONIN 5 MG TABLETS PO SCH (21:03)
[2020-06-02] MEDS: IBUPROFEN 400 MG TABLET (FP) PO PRN (23:31)
[2020-06-03] MEDS: hydrOXYzine PAMOATE 25 MG CAPSULE (FP) PO SCH ×5 (06:07→22:15)
[2020-06-03] MEDS: LACTULOSE 20 GM/30 ML UDC (FOR ORAL USE ONLY) PO SCH ×3 (06:07→22:16)
[2020-06-03] MEDS: NICOTINE 7 MG/24 HOURS TOPICAL PATCH TD SCH (10:58)
[2020-06-03] MEDS: ASPIRIN COATED 81 MG TABLET.EC PO SCH (10:58)
[2020-06-03] MEDS: PRENATAL VITAMINS W/ FOLIC ACID TABLET (FP) PO SCH (10:58)
[2020-06-03] MEDS: amLODIPine BESYLATE 5 MG TABLET (FP) PO SCH (10:58)
[2020-06-03] MEDS: IBUPROFEN 400 MG TABLET (FP) PO PRN (11:00)
[2020-06-03] MEDS: BACITRACIN 0.9 GM PACKET TP SCH ×2 (11:01→22:15)
[2020-06-03 11:13] LABS: HEMATOCRIT 30.4 % (35.4-49); HEMOGLOBIN 9.6 GM/dL (11.7-16.9); MCH 28.7 pg (25.7-33.7); MCHC 31.5 g/dl (32.0-35.9); MEAN CELL VOLUME 91.1 fl (80-96); PLATELET COUNT 132 K/MM3 (134-434); RBC 3.33 M/mm3 (4.00-5.60); RDW 18.3 % (11.9-15.9); WHITE BLOOD COUNT 4.1 K/mm3 (4.0-10.0)
[2020-06-03 11:26] LABS: ALBUMIN 2.6 g/dl (3.4-5.0); BILIRUBIN,TOTAL 0.8 mg/dL (0.2-1); BLOOD UREA NITROGEN 5.7 mg/dL (7-18); CALCIUM 8.4 mg/dL (8.5-10.1); TOT PROT 6.2 g/dl (6.4-8.2)
--- NOTE | 2020-06-03 12:14 | PN ---
S Progress Note Note: Pt c/o insomnia. Vital Signs 06/03/20 06/03/20 06:41 08:20 Temperature 99.1 F 98.0 F Pulse Rate 65 68 Respiratory 18 18 Rate Blood Pressure 147/73 138/70 O2 Sat by Pulse 98 Oximetry (%) Laboratory Tests 06/01/20 06/03/20 06/03/20 Unknown 08:00 08:00 WBC 4.1 RBC 3.33 L Hgb 9.6 L Hct 30.4 L MCV 91.1 MCH 28.7 MCHC 31.5 L RDW 18.3 H Plt Count 132 L MPV 8.0 Sodium 142 Potassium 4.0 Chloride 111 H Carbon Dioxide 26 Anion Gap 5 L BUN 5.7 L Creatinine 1.0 Est GFR (CKD-EPI)AfAm 93.73 Est GFR (CKD-EPI)NonAf 80.87 Random Glucose 134 H Calcium 8.4 L Total Bilirubin 0.8 AST 58 H ALT 60 Alkaline Phosphatase 117 Ammonia Total Protein 6.2 L Albumin 2.6 L Urine Color Yellow Urine Appearance Clear Urine pH 7.5 Ur Specific [place] 1.009 L Urine Protein Negative Urine Glucose (UA) Negative Urine Ketones Negative Urine Blood Negative Urine Nitrite Negative Urine Bilirubin Negative Urine Urobilinogen 1.0 Ur Leukocyte Esterase Trace Urine WBC (Auto) 15 Urine RBC (Auto) 6 Urine Casts (Auto) 0 U Epithel Cells (Auto) 10 Urine Bacteria (Auto) 6 06/03/20 08:00 WBC RBC Hgb Hct MCV MCH MCHC RDW Plt Count MPV Sodium Potassium Chloride Carbon Dioxide Anion Gap BUN Creatinine Est GFR (CKD-EPI)AfAm Est GFR (CKD-EPI)NonAf Random Glucose Calcium Total Bilirubin AST ALT Alkaline Phosphatase Ammonia 105.40 H Total Protein Albumin Urine Color Urine Appearance Urine pH Ur Specific [place] Urine Protein Urine Glucose (UA) Urine Ketones Urine Blood Urine Nitrite Urine Bilirubin Urine Urobilinogen Ur Leukocyte Esterase Urine WBC (Auto) Urine RBC (Auto) Urine Casts (Auto) U Epithel Cells (Auto) Urine Bacteria (Auto) labs abnormal results. Elevated Ammonia level CBC-decreased H/H Glc 134 A:HyperAmmonemia Abnormal Lab results Cont Lactulose as directed
[2020-06-03] MEDS: MELATONIN 5 MG TABLETS PO SCH (22:15)
[2020-06-03] MEDS: THIAMINE HCL 100 MG TABLET (FP) PO SCH (22:17)
[2020-06-04] MEDS: MAG HYDROX/AL HYDROX/SIMETH 30 ML UNIT-DOSE CUP PO PRN ×2 (00:50→21:20)
[2020-06-04] MEDS: LACTULOSE 20 GM/30 ML UDC (FOR ORAL USE ONLY) PO SCH ×3 (06:40→21:17)
[2020-06-04] MEDS: hydrOXYzine PAMOATE 25 MG CAPSULE (FP) PO SCH ×5 (06:40→21:18)
[2020-06-04] MEDS: PRENATAL VITAMINS W/ FOLIC ACID TABLET (FP) PO SCH (10:40)
[2020-06-04] MEDS: IBUPROFEN 400 MG TABLET (FP) PO PRN (10:41)
[2020-06-04] MEDS: NICOTINE 7 MG/24 HOURS TOPICAL PATCH TD SCH (10:41)
[2020-06-04] MEDS: ASPIRIN COATED 81 MG TABLET.EC PO SCH (10:41)
[2020-06-04] MEDS: amLODIPine BESYLATE 5 MG TABLET (FP) PO SCH (10:41)
[2020-06-04] MEDS: BACITRACIN 0.9 GM PACKET TP SCH ×2 (10:44→21:17)
--- NOTE | 2020-06-04 16:53 | CONSULT ---
[facility] Psychiatric Consult - Data Date of interview: 06/04/20 Admission source: [facility] Identifying data: Admission to [address] for this 60 y/o AA male (just transferred from the [facility] where he received medical care since 05/24/20 for alteration of mental status due to hepatic encephalopathy) seeking rehabilitation treatment for his LORNE issues (heroin, alcohol, nicotine). On 05/24/20, the patient presented to [facility] for detoxification but he had to be sent to [facility] for medical management for unexplained mental confusion. Patient is , father of two, domiciled (lives sporadically with sister) and currently self-employed. Substance Abuse History: Discussed with the patient. Mr David is a good historian. He admits to using heroin (10-15 bags/day) via snorting since age 12 (overdosed once in ) + consuming 2-3 pints of " cheap vodka " on a daily basis from age 12 onward. Smokes 5-7 cigarettes daily. Patient reports past treatment at the [facility] and [facility] (completed both programs). Have you smoked in the past 12 months: Yes. Aproximately how many cigarettes per day: 4. Cigars Per Day: 0. Hx Chewing Tobacco Use: No. Substance & Tx. History. Hx Alcohol Use: Yes. Hx Substance Use: Yes. Corley bstance Use Type: Alcohol, Heroin. Hx Substance Use Treatment: Yes (detox, rehab, past Suboxone tx). Medical History: Medical profile is remarkable for recent episode of hepatic encephalopathy, transaminitis, hepatistis C, dyslipidemia, pantocytopenia, hypertension, antecedent of gonorrhea (treated), history of cholecystectomy (2012) and left inguinal herniorraphy (2012). Psychiatric History: Patient denies history of psychiatric hospitalizations, OPD care or suicide attempts. Physical/Sexual Abuse/Trauma History: Patient denies history of abuse. Trauma : of biological mother 45 years ago. Mr David indicates that he was " very close " to his mother and was " hurt " by that loss. Additional Comment: Negative toxicology. Mental Status Exam - Mental Status Exam Alert and Oriented to: Time, Place, Person Cognitive Function: Good Patient Appearance: Well Groomed Mood: Anxious (due to lack of sleep) Affect: Mood Congruent, Constricted Patient Behavior: Fatigued, Appropriate, Cooperative (friendly on approach) Speech Pattern: Clear, Appropriate Voice Loudness: Normal Thought Process: Intact, Goal Oriented Thought Disorder: Not Present Hallucinations: Denies Suicidal Ideation: Denies Homicidal Ideation: Denies Insight/Judgement: Fair Sleep: Poorly, Difficulty falling asleep Appetite: Poor, Weight loss Gait/Station: Normal Psychiatric Findings - Problem List ([place] 1, 2,3) (1) Alcohol use disorder Current Visit: Yes Status: Chronic (2) Opioid use disorder Current Visit: Yes Status: Chronic (3) Nicotine dependence Current Visit: Yes Status: Chronic (4) Substance induced mood disorder Current Visit: Yes Status: Chronic (5) Insomnia Current Visit: Yes Status: Chronic - Initial Treatment Plan Initial Treatment Plan: Psychoeducation. Sleep hygiene. Support and orientation to the unit. Motivational counseling. Individual/group/recreational therapy (with observance of strict COVID-19 guidelines : social distancing, face mask, hand washing). AA/NA meetings. Patient has requested the inclusion of trazodone to the current regimen of medications (proven efficacy during patient's stay ay [facility], as per self-report). Trazodone 50 mg po hs. Ordered. Patient is informed of the risk of priapism. He agrees to this plan of care. [place] informed consent (verbal) to MD. Olivia.
[2020-06-04] MEDS: MELATONIN 5 MG TABLETS PO SCH (21:17)
[2020-06-04] MEDS: THIAMINE HCL 100 MG TABLET (FP) PO SCH (21:17)
[2020-06-04] MEDS: traZODone HCL 50 MG TABLET (FP) PO SCH (21:18)
[2020-06-05] MEDS: IBUPROFEN 400 MG TABLET (FP) PO PRN ×2 (01:20→19:50)
[2020-06-05] MEDS: MAG HYDROX/AL HYDROX/SIMETH 30 ML UNIT-DOSE CUP PO PRN (03:39)
[2020-06-05] MEDS: LACTULOSE 20 GM/30 ML UDC (FOR ORAL USE ONLY) PO SCH ×3 (06:13→21:42)
[2020-06-05] MEDS: hydrOXYzine PAMOATE 25 MG CAPSULE (FP) PO SCH ×5 (06:13→21:42)
[2020-06-05] MEDS: amLODIPine BESYLATE 5 MG TABLET (FP) PO SCH (11:07)
[2020-06-05] MEDS: NICOTINE 7 MG/24 HOURS TOPICAL PATCH TD SCH (11:08)
[2020-06-05] MEDS: PRENATAL VITAMINS W/ FOLIC ACID TABLET (FP) PO SCH (11:08)
[2020-06-05] MEDS: ASPIRIN COATED 81 MG TABLET.EC PO SCH (11:08)
[2020-06-05] MEDS: MELATONIN 5 MG TABLETS PO SCH (21:42)
[2020-06-05] MEDS: THIAMINE HCL 100 MG TABLET (FP) PO SCH (21:42)
[2020-06-05] MEDS: traZODone HCL 50 MG TABLET (FP) PO SCH (21:42)
[2020-06-06] MEDS: LACTULOSE 20 GM/30 ML UDC (FOR ORAL USE ONLY) PO SCH ×3 (06:06→21:13)
[2020-06-06] MEDS: hydrOXYzine PAMOATE 25 MG CAPSULE (FP) PO SCH ×5 (06:06→21:13)
[2020-06-06] MEDS: ASPIRIN COATED 81 MG TABLET.EC PO SCH (10:50)
[2020-06-06] MEDS: NICOTINE 7 MG/24 HOURS TOPICAL PATCH TD SCH (10:50)
[2020-06-06] MEDS: amLODIPine BESYLATE 5 MG TABLET (FP) PO SCH (10:51)
[2020-06-06] MEDS: PRENATAL VITAMINS W/ FOLIC ACID TABLET (FP) PO SCH (10:51)
[2020-06-06] MEDS: NICOTINE POLACRILEX 2 MG GUM BC PRN (10:53)
[2020-06-06] MEDS ORDERED: PT OWN MED DRAWER 7, Y5N ONE (13:42)
[2020-06-06] MEDS ORDERED: BACITRACIN 0.9 GM PACKET TP ONE (14:15)
[2020-06-06] MEDS: traZODone HCL 50 MG TABLET (FP) PO SCH (21:13)
[2020-06-06] MEDS: MELATONIN 5 MG TABLETS PO SCH (21:13)
[2020-06-06] MEDS: THIAMINE HCL 100 MG TABLET (FP) PO SCH (21:13)
[2020-06-06] MEDS: MAG HYDROX/AL HYDROX/SIMETH 30 ML UNIT-DOSE CUP PO PRN (21:14)
[2020-06-07] MEDS: LACTULOSE 20 GM/30 ML UDC (FOR ORAL USE ONLY) PO SCH ×3 (07:07→21:30)
[2020-06-07] MEDS: hydrOXYzine PAMOATE 25 MG CAPSULE (FP) PO SCH ×5 (07:07→21:30)
[2020-06-07] MEDS: amLODIPine BESYLATE 5 MG TABLET (FP) PO SCH (10:31)
[2020-06-07] MEDS: ASPIRIN COATED 81 MG TABLET.EC PO SCH (10:31)
[2020-06-07] MEDS: PRENATAL VITAMINS W/ FOLIC ACID TABLET (FP) PO SCH (10:31)
[2020-06-07] MEDS: NICOTINE 7 MG/24 HOURS TOPICAL PATCH TD SCH (10:32)
[2020-06-07] MEDS: MAG HYDROX/AL HYDROX/SIMETH 30 ML UNIT-DOSE CUP PO PRN (19:40)
[2020-06-07] MEDS: traZODone HCL 50 MG TABLET (FP) PO SCH (21:30)
[2020-06-07] MEDS: MELATONIN 5 MG TABLETS PO SCH (21:30)
[2020-06-07] MEDS: THIAMINE HCL 100 MG TABLET (FP) PO SCH (21:31)
[2020-06-08] MEDS: hydrOXYzine PAMOATE 25 MG CAPSULE (FP) PO SCH ×5 (05:51→23:22)
[2020-06-08] MEDS: LACTULOSE 20 GM/30 ML UDC (FOR ORAL USE ONLY) PO SCH ×3 (05:52→23:22)
[2020-06-08] MEDS: PRENATAL VITAMINS W/ FOLIC ACID TABLET (FP) PO SCH (10:11)
[2020-06-08] MEDS: amLODIPine BESYLATE 5 MG TABLET (FP) PO SCH (10:12)
[2020-06-08] MEDS: ASPIRIN COATED 81 MG TABLET.EC PO SCH (10:12)
[2020-06-08] MEDS: NICOTINE 7 MG/24 HOURS TOPICAL PATCH TD SCH (10:12)
[2020-06-08] MEDS: MAG HYDROX/AL HYDROX/SIMETH 30 ML UNIT-DOSE CUP PO PRN ×2 (10:13→23:27)
[2020-06-08] MEDS: IBUPROFEN 400 MG TABLET (FP) PO PRN (19:40)
--- NOTE | 2020-06-08 20:17 | PN ---
S Progress Note Note: unwitnessed fall with head injury in the shower room no loss of conscious pain over the left occipital area alert,oriented x3 history of resolving hepatic encephalopathy with high ammonia level treated with lactulose no pain in the neck movement all extremity no abdominal pain t 99.3p78 r20 bp145/71 impression head injury unwitnessed fall resoling hepatic encephalopathy high ammonia level chronic alcoholism treatment initiate fall protocol 1 fall precaution er evaluation at [facility] endorsed to Dr Teo Verduzco transported by [facility]
--- NOTE | 2020-06-08 23:12 | PN ---
[facility] Progress Note Note: Received patient in [facility] from [facility] emergency room where he was evaluated with complaint of head injury secondary to an unwitnessed fall in the shower room. He denies pain, headache, vomiting, loss of consciousness or any neurological symptoms at this time. He is alert and oriented x 3, in no acute distress and ambulates without difficulties. ER report endorsed normal Head CT scan with no acute intracranial process. Vital Signs Temperature 98.8 F 06/08/20 20:08 Pulse Rate 70 06/08/20 20:08 Respiratory Rate 20 06/08/20 20:08 Blood Pressure 137/78 06/08/20 20:08 O2 Sat by Pulse Oximetry (%) 98 06/08/20 17:45 Laboratory Last Values WBC 4.1 K/mm3 (4.0-10.0) 06/03/20 08:00 RBC 3.33 M/mm3 (4.00-5.60) L 06/03/20 08:00 Hgb 9.6 GM/dL (11.7-16.9) L 06/03/20 08:00 Hct 30.4 % (35.4-49) L 06/03/20 08:00 MCV 91.1 fl (80-96) 06/03/20 08:00 MCH 28.7 pg (25.7-33.7) 06/03/20 08:00 MCHC 31.5 g/dl (32.0-35.9) L 06/03/20 08:00 RDW 18.3 % (11.9-15.9) H 06/03/20 08:00 Plt Count 132 K/MM3 (134-434) L 06/03/20 08:00 MPV 8.0 fl (7.5-11.1) 06/03/20 08:00 Sodium 142 mmol/L (136-145) 06/03/20 08:00 Potassium 4.0 mmol/L (3.5-5.1) 06/03/20 08:00 Chloride 111 mmol/L (98-107) H 06/03/20 08:00 Carbon Dioxide 26 mmol/L (21-32) 06/03/20 08:00 Anion Gap 5 MMOL/L (8-16) L 06/03/20 08:00 BUN 5.7 mg/dL (7-18) L 06/03/20 08:00 Creatinine 1.0 mg/dL (0.55-1.3) 06/03/20 08:00 Est GFR (CKD-EPI)AfAm 93.73 06/03/20 08:00 Est GFR (CKD-EPI)NonAf 80.87 06/03/20 08:00 Random Glucose 134 mg/dL (74-106) H 06/03/20 08:00 Calcium 8.4 mg/dL (8.5-10.1) L 06/03/20 08:00 Total Bilirubin 0.8 mg/dL (0.2-1) 06/03/20 08:00 AST 58 U/L (15-37) H 06/03/20 08:00 ALT 60 U/L (13-61) 06/03/20 08:00 Alkaline Phosphatase 117 U/L (45-117) 06/03/20 08:00 Ammonia 105.40 umol/L (11-32) H 06/03/20 08:00 Total Protein 6.2 g/dl (6.4-8.2) L 06/03/20 08:00 Albumin 2.6 g/dl (3.4-5.0) L 06/03/20 08:00 Urine Color Yellow 06/01/20 Unknown Urine Appearance Clear 06/01/20 Unknown Urine pH 7.5 (5.0-8.0) 06/01/20 Unknown Ur Specific [place] 1.009 (1.010-1.035) L 06/01/20 Unknown Urine Protein Negative (NEGATIVE) 06/01/20 Unknown Urine Glucose (UA) Negative (NEGATIVE) 06/01/20 Unknown Urine Ketones Negative (NEGATIVE) 06/01/20 Unknown Urine Blood Negative (NEGATIVE) 06/01/20 Unknown Urine Nitrite Negative (NEGATIVE) 06/01/20 Unknown Urine Bilirubin Negative (NEGATIVE) 06/01/20 Unknown Urine Urobilinogen 1.0 mg/dL (0.2-1.0) 06/01/20 Unknown Ur Leukocyte Esterase Trace (NEGATIVE) 06/01/20 Unknown Urine WBC (Auto) 15 /uL (0-25.8) 06/01/20 Unknown Urine RBC (Auto) 6 /uL (0-23.9) 06/01/20 Unknown Urine Casts (Auto) 0 /uL (0-3.1) 06/01/20 Unknown U Epithel Cells (Auto) 10 /uL (0-25.1) 06/01/20 Unknown Urine Bacteria (Auto) 6 /uL (0-1359) 06/01/20 Unknown Syphilis Serology Non-reactive (NONREACTIVE) 06/03/20 08:00 Action:Continue neurological assessment as per protocol Continue Lactoluse as ordered for high ammonia level Maintain pain management with Ibuprofen 400mg tablet oral Q6H prn Maintain fall and safety precaution Continue detox as ordered
[2020-06-08] MEDS: traZODone HCL 50 MG TABLET (FP) PO SCH (23:23)
[2020-06-08] MEDS: MELATONIN 5 MG TABLETS PO SCH (23:23)
[2020-06-08] MEDS: THIAMINE HCL 100 MG TABLET (FP) PO SCH (23:23)
[2020-06-09] MEDS: hydrOXYzine PAMOATE 25 MG CAPSULE (FP) PO SCH ×5 (06:35→21:56)
[2020-06-09] MEDS: LACTULOSE 20 GM/30 ML UDC (FOR ORAL USE ONLY) PO SCH ×3 (06:35→21:56)
[2020-06-09] MEDS ORDERED: MASKS NR ONE (06:37)
[2020-06-09] MEDS: amLODIPine BESYLATE 5 MG TABLET (FP) PO SCH (10:19)
[2020-06-09] MEDS: NICOTINE 7 MG/24 HOURS TOPICAL PATCH TD SCH (10:19)
[2020-06-09] MEDS: ASPIRIN COATED 81 MG TABLET.EC PO SCH (10:19)
[2020-06-09] MEDS: PRENATAL VITAMINS W/ FOLIC ACID TABLET (FP) PO SCH (10:19)
[2020-06-09] MEDS: THIAMINE HCL 100 MG TABLET (FP) PO SCH (21:56)
[2020-06-09] MEDS: MELATONIN 5 MG TABLETS PO SCH (21:56)
[2020-06-09] MEDS: traZODone HCL 50 MG TABLET (FP) PO SCH (21:56)
[2020-06-09] MEDS: MAG HYDROX/AL HYDROX/SIMETH 30 ML UNIT-DOSE CUP PO PRN (22:35)
[2020-06-10] MEDS ORDERED: TRIMETHOBENZAMIDE HCL 200MG/2ML INJ IM ONE (01:50)
--- NOTE | 2020-06-10 01:53 | PN ---
[facility] Progress Note Note: Patient vomited x 1 Vital Signs Temperature 99.3 F 06/10/20 01:46 Pulse Rate 78 06/10/20 01:46 Respiratory Rate 18 06/10/20 01:46 Blood Pressure 129/62 06/10/20 01:46 O2 Sat by Pulse Oximetry (%) 97 06/10/20 01:46 Laboratory Last Values WBC 4.1 K/mm3 (4.0-10.0) 06/03/20 08:00 RBC 3.33 M/mm3 (4.00-5.60) L 06/03/20 08:00 Hgb 9.6 GM/dL (11.7-16.9) L 06/03/20 08:00 Hct 30.4 % (35.4-49) L 06/03/20 08:00 MCV 91.1 fl (80-96) 06/03/20 08:00 MCH 28.7 pg (25.7-33.7) 06/03/20 08:00 MCHC 31.5 g/dl (32.0-35.9) L 06/03/20 08:00 RDW 18.3 % (11.9-15.9) H 06/03/20 08:00 Plt Count 132 K/MM3 (134-434) L 06/03/20 08:00 MPV 8.0 fl (7.5-11.1) 06/03/20 08:00 Sodium 142 mmol/L (136-145) 06/03/20 08:00 Potassium 4.0 mmol/L (3.5-5.1) 06/03/20 08:00 Chloride 111 mmol/L (98-107) H 06/03/20 08:00 Carbon Dioxide 26 mmol/L (21-32) 06/03/20 08:00 Anion Gap 5 MMOL/L (8-16) L 06/03/20 08:00 BUN 5.7 mg/dL (7-18) L 06/03/20 08:00 Creatinine 1.0 mg/dL (0.55-1.3) 06/03/20 08:00 Est GFR (CKD-EPI)AfAm 93.73 06/03/20 08:00 Est GFR (CKD-EPI)NonAf 80.87 06/03/20 08:00 Random Glucose 134 mg/dL (74-106) H 06/03/20 08:00 Calcium 8.4 mg/dL (8.5-10.1) L 06/03/20 08:00 Total Bilirubin 0.8 mg/dL (0.2-1) 06/03/20 08:00 AST 58 U/L (15-37) H 06/03/20 08:00 ALT 60 U/L (13-61) 06/03/20 08:00 Alkaline Phosphatase 117 U/L (45-117) 06/03/20 08:00 Ammonia 105.40 umol/L (11-32) H 06/03/20 08:00 Total Protein 6.2 g/dl (6.4-8.2) L 06/03/20 08:00 Albumin 2.6 g/dl (3.4-5.0) L 06/03/20 08:00 Urine Color Yellow 06/01/20 Unknown Urine Appearance Clear 06/01/20 Unknown Urine pH 7.5 (5.0-8.0) 06/01/20 Unknown Ur Specific [place] 1.009 (1.010-1.035) L 06/01/20 Unknown Urine Protein Negative (NEGATIVE) 06/01/20 Unknown Urine Glucose (UA) Negative (NEGATIVE) 06/01/20 Unknown Urine Ketones Negative (NEGATIVE) 06/01/20 Unknown Urine Blood Negative (NEGATIVE) 06/01/20 Unknown Urine Nitrite Negative (NEGATIVE) 06/01/20 Unknown Urine Bilirubin Negative (NEGATIVE) 06/01/20 Unknown Urine Urobilinogen 1.0 mg/dL (0.2-1.0) 06/01/20 Unknown Ur Leukocyte Esterase Trace (NEGATIVE) 06/01/20 Unknown Urine WBC (Auto) 15 /uL (0-25.8) 06/01/20 Unknown Urine RBC (Auto) 6 /uL (0-23.9) 06/01/20 Unknown Urine Casts (Auto) 0 /uL (0-3.1) 06/01/20 Unknown U Epithel Cells (Auto) 10 /uL (0-25.1) 06/01/20 Unknown Urine Bacteria (Auto) 6 /uL (0-1359) 06/01/20 Unknown Syphilis Serology Non-reactive (NONREACTIVE) 06/03/20 08:00 Action:Tigan 200mg IM ordered
[2020-06-10] MEDS: hydrOXYzine PAMOATE 25 MG CAPSULE (FP) PO SCH ×5 (06:17→21:40)
[2020-06-10] MEDS: LACTULOSE 20 GM/30 ML UDC (FOR ORAL USE ONLY) PO SCH ×3 (06:18→21:40)
[2020-06-10] MEDS: ASPIRIN COATED 81 MG TABLET.EC PO SCH (10:58)
[2020-06-10] MEDS: amLODIPine BESYLATE 5 MG TABLET (FP) PO SCH (10:58)
[2020-06-10] MEDS: NICOTINE 7 MG/24 HOURS TOPICAL PATCH TD SCH (10:58)
[2020-06-10] MEDS: PRENATAL VITAMINS W/ FOLIC ACID TABLET (FP) PO SCH (10:58)
[2020-06-10] MEDS: MAG HYDROX/AL HYDROX/SIMETH 30 ML UNIT-DOSE CUP PO PRN (19:46)
[2020-06-10] MEDS: THIAMINE HCL 100 MG TABLET (FP) PO SCH (21:40)
[2020-06-10] MEDS: traZODone HCL 50 MG TABLET (FP) PO SCH (21:40)
[2020-06-10] MEDS: MELATONIN 5 MG TABLETS PO SCH (21:40)
[2020-06-11] MEDS: LACTULOSE 20 GM/30 ML UDC (FOR ORAL USE ONLY) PO SCH ×3 (05:54→21:29)
[2020-06-11] MEDS: hydrOXYzine PAMOATE 25 MG CAPSULE (FP) PO SCH ×5 (05:54→21:29)
[2020-06-11] MEDS: ASPIRIN COATED 81 MG TABLET.EC PO SCH (10:44)
[2020-06-11] MEDS: NICOTINE 7 MG/24 HOURS TOPICAL PATCH TD SCH (10:44)
[2020-06-11] MEDS: amLODIPine BESYLATE 5 MG TABLET (FP) PO SCH (10:44)
[2020-06-11] MEDS: PRENATAL VITAMINS W/ FOLIC ACID TABLET (FP) PO SCH (10:44)
--- NOTE | 2020-06-11 15:17 | DS ---
[facility] Rehab Discharge Summary - [facility] Rehab Discharge Summary Admission Date: 05/31/20 Discharge Date: 06/11/20 - History Present History: Alcohol dependence, Opioid dependence Pertinent Past History: 60 y.o. male wiht heroin use disorder. Pt is very poor historian , disoriented to time / place / self ( knows , not age ) . Pt reports recent falls while intoxicated , most recently yesterday . Was sent to [facility] Ed for confusion earlier today , CT scan done , no acute ICH . per MR , pt w/ etoh abuse - currently denies alcohol use. pmhx as reported by pt : Hep C, GERD , hernia surgery , depression , cholecystectomy ( per MR) - Discharge Physical Exam Vital Signs: Vital Signs Temperature 98.2 F 06/11/20 09:55 Pulse Rate 71 06/11/20 09:55 Respiratory Rate 18 06/11/20 09:55 Blood Pressure 152/73 06/11/20 09:55 O2 Sat by Pulse Oximetry (%) 98 06/11/20 14:56 Pertinent Admission Physical Exam Findings: Physical General Appearance: no apparent distress HEENTM: Normocephalic Respiratory: No Respiratory Distress, No Accessory Muscle Use Neck: Supple Musculoskeletal: unsteady gait, Neurological: Alert, - Treatment Discharge Condition: Outpatient referral accepted (medically stable for discharge,Patient will go to [facility]) Hospital Course: Patient attended groups, had 1:1 with his provider, was seen by the psychiatric service. He was adherent to his medication regimen and treatment plan. He had no acute or urgent medical problems while in rehab. He was treated for elevated ammonia level while in rehab. He also took lactulose for the same in the community. - Medication Discharge Medications: Ambulatory Orders Amlodipine Besylate [Norvasc -] 5 mg PO DAILY #30 tablet 06/11/20 Aspirin Coated [Ecotrin -] 81 mg PO DAILY #30 tablet.ec 06/11/20 Folic Acid - 1 mg PO DAILY #30 tablet 06/11/20 Lactulose [Kristalose] 20 gm PO TID #90 packet 06/11/20 Thiamine HCl [Vitamin B-1] 100 mg PO DAILY #30 tablet 06/11/20 - Medication-Assisted Treatment (MAT) Medication-Assisted Treatment (MAT): No - Discharge Instructions Diet, activity, other medical instructions: Diet: as tolerated Activity: as tolerated. Other medical instructions: Please follow up with aftercare referral. Continue with lactulose. - Diagnosis (1) Alcohol use disorder, moderate, in early remission Current Visit: Yes Status: Chronic (2) Opioid use disorder, moderate, in early remission Current Visit: Yes Status: Chronic - AMA Did Patient Leave Against Medical Advice: No Additional Comments: Lactulose elevated; advised patient to continue treatment in the community. He acknowledges that he was taking medication for elevated to lactulose prior to admission.
[2020-06-11] MEDS: MAG HYDROX/AL HYDROX/SIMETH 30 ML UNIT-DOSE CUP PO PRN (19:35)
[2020-06-11] MEDS: MELATONIN 5 MG TABLETS PO SCH (21:28)
[2020-06-11] MEDS: traZODone HCL 50 MG TABLET (FP) PO SCH (21:29)
[2020-06-11] MEDS: THIAMINE HCL 100 MG TABLET (FP) PO SCH (21:29)
[2020-06-12] MEDS: hydrOXYzine PAMOATE 25 MG CAPSULE (FP) PO SCH ×2 (06:29→09:33)
[2020-06-12] MEDS: LACTULOSE 20 GM/30 ML UDC (FOR ORAL USE ONLY) PO SCH (06:29)
[2020-06-12 06:47] VITALS: TEMP 98.6
[2020-06-12 09:09] VITALS: BP 135/68
[2020-06-12 09:11] VITALS: PULSE 72
[2020-06-12] MEDS: PRENATAL VITAMINS W/ FOLIC ACID TABLET (FP) PO SCH (09:32)
[2020-06-12] MEDS: amLODIPine BESYLATE 5 MG TABLET (FP) PO SCH (09:32)
[2020-06-12] MEDS: NICOTINE 7 MG/24 HOURS TOPICAL PATCH TD SCH (09:33)
[2020-06-12] MEDS: ASPIRIN COATED 81 MG TABLET.EC PO SCH (09:34)
== END 2020-06-12 09:37 | disposition home or self-care (01) | DRG 772 ==
LOC: YASAS 17:03 → Y3W 23:41
PROVIDERS: ADMIT Allergy & Immunology; ATTEND Allergy & Immunology
PROC: HZ42ZZZ Group Counseling for Substance Abuse Treatment, Cognitive-Behavioral (ICD-10-PCS; principal; 2020-05-31)
DX: F11.20 Opioid dependence, uncomplicated (principal); F10.20 Alcohol dependence, uncomplicated; F17.210 Nicotine dependence, cigarettes, uncomplicated; F19.24 Other psychoactive substance dependence with psychoactive substance-induced mood disorder; F32.9 Major depressive disorder, single episode, unspecified; D61.818 Other pancytopenia; I10 Essential (primary) hypertension; K21.9 Gastro-esophageal reflux disease without esophagitis; K72.90 Hepatic failure, unspecified without coma; E78.5 Hyperlipidemia, unspecified; E72.20 Disorder of urea cycle metabolism, unspecified; B18.2 Chronic viral hepatitis C; H57.00 Unspecified anomaly of pupillary function; R10.812 Left upper quadrant abdominal tenderness; Z86.19 Personal history of other infectious and parasitic diseases; S09.90XA Unspecified injury of head, initial encounter; S40.812A Abrasion of left upper arm, initial encounter; S50.311A Abrasion of right elbow, initial encounter; S80.211A Abrasion, right knee, initial encounter; W18.30XA Fall on same level, unspecified, initial encounter; Y93.E8 Activity, other personal hygiene; Y92.231 Patient bathroom in hospital as the place of occurrence of the external cause; Y99.8 Other external cause status; Z90.49 Acquired absence of other specified parts of digestive tract; Z98.890 Other specified postprocedural states
CPT/HCPCS: 36415; 80053; 81003; 82140; 85027; 86780

== ENCOUNTER 2020-06-08 20:27 | Emergency (ER) | payer OTHER ==
--- NOTE | 2020-06-08 20:35 | PDOC ---
Rapid Medical Evaluation Time Seen by Provider: 06/08/20 20:35 Medical Evaluation: Allergies Allergy/AdvReac Type Severity Reaction Status Date / Time No Known Allergies Allergy Verified 05/24/20 23:20 06/08/20 20:35 I have performed a brief in-person evaluation of this patient. The patient presents with a chief complaint of:banged head on metal bar in shower today. Unwitnessed. No LOC, GARCIA, dizziness, n/v. Not on blood thinners. H/o polysubstance abuse, HCV Pertinent physical exam findings:stable, NAD I have ordered the following:CTH The patient will proceed to the ED for further evaluation. See notes from 2 park below: un witness fall with head injury in the shower room no loc pain over the left occipital area alert,oriented x3 history of resolving hepatic encephalopathy with high ammonia level treated with lactulose no pain in the neck movement all extremity no abdominal pain t [id number] r20 bp145/71 impression head injury un witness fall resoling hepatic encephalopathy high ammonia level chronic alcoholism treatment initiate fall protocol 1 fall precaution er evaluation at [facility] endorsed to Dr Teo Verduzco transported by [facility] Discharge Disposition - Diagnosis Closed head injury Qualifiers: Encounter type: initial encounter Qualified Code(s): S09.90XA - Unspecified injury of head, initial encounter - Referrals - Patient Instructions - Post Discharge Activity
[2020-06-08 20:47] VITALS: TEMP 98.1; BMI 24.3
--- NOTE | 2020-06-08 21:35 | PDOC ---
History of Present Illness - General Chief Complaint: Injury Stated Complaint: FALL/REAR/HEAD PAIN Time Seen by Provider: 06/08/20 20:35 - History of Present Illness Initial Comments: Gera David is a 60yo man with a PMH of substance abuse, hepatic encephalopathy, HTN, HLD, depression, Hep C who presents from [facility] for evaluation of a head injury. Mr David reports that he struck his head on a metal bar while in the shower today. He says that he went down to one knee after striking his head, and he says that he "blacked out" but did not lose consciousness. He did not fall. He was able to ambulate following the incident. He denies any severe headache, neurological deficits, vomiting, excessive sleepiness, or other current symptoms. Past History - Medical History Allergies/Adverse Reactions: Allergies Allergy/AdvReac Type Severity Reaction Status Date / Time No Known Allergies Allergy Verified 05/24/20 23:20 Home Medications: Ambulatory Orders Amlodipine Besylate [Norvasc -] 5 mg PO DAILY 05/31/20 Aspirin Coated [Ecotrin -] 81 mg PO DAILY tablet.ec 05/31/20 Folic Acid - 1 mg PO DAILY tablet 05/31/20 Lactulose [Kristalose] 20 gm PO TID #90 packet 05/31/20 Thiamine HCl [Vitamin B-1] 100 mg PO DAILY #30 tablet 05/31/20 Anemia: No Asthma: No Cancer: No Cardiac Disorders: No CVA: No COPD: No CHF: No Dementia: No Diabetes: No GI Disorders: No Disorders: No HTN: Yes (Tx with Norvasc 5 mg po) Hypercholesterolemia: No Kidney Stones: No Liver Disease: No Seizures: No Thyroid Disease: No - Surgical History Abdominal Surgery: No Appendectomy: No Cardiac Surgery: No Cholecystectomy: Yes (in 2012) Lung Surgery: No Neurologic Surgery: No Orthopedic Surgery: No - Reproductive History Testicular Surgery: No - Immunization History Immunization Up to Date: No - Psycho-Social/Smoking History Smoking History: Former smoker Have you smoked in the past 12 months: Yes Number of Cigarettes Smoked Daily: 4 Cigars Per Day: 0 Information on smoking cessation initiated: No 'Breaking Loose' booklet given: 06/30/16 - Substance Abuse Hx (Audit-C & DAST Scrn) How often the patient has a drink containing alcohol: Never Score: In Men: 4 or > Positive; In Women: 3 or > Positive: 0 Screen Result (Pos requires Nsg. Audit-10AR): Negative In the last yr the pt used illegal drug/Rx for NonMed reason: Yes Score: Yes response is considered Positive: 1 Screen Result (Positive result requires Nsg. DAST-10): Positive Review of Systems - Review of Systems Comments:: General: No fevers, no chills, no weight or appetite change, no malaise HEENT: No changes in vision, no changes in hearing, no congestion, no sore throat CV: No chest pain, no palpitations, no LE edema Pulm: No SOB, no cough, no wheezing GI: No nausea or vomiting, no change in bowel habits, no melena : No frequency, no urgency, no dysuria Musc: No back pain, no joint swelling, no recent injury Skin: No rash, no lesions, no erythema Endo: No excessive thirst, no heat/cold intolerance Heme: No unusual bruising or bleeding, no swollen glands Neuro: No syncope, no numbness/tingling, no focal weakness Vasc: No claudication Psych: No recent change in mood, no SI or HI *Physical Exam - Vital Signs Last Vital Signs Temp Pulse Resp BP Pulse Ox 98.1 F 71 20 132/67 99 06/08/20 20:40 06/08/20 20:40 06/08/20 20:40 06/08/20 20:40 06/08/20 20:40 - Physical Exam General: Comfortable, no acute distress HEENT: Contusion, mildly TTP, on left posterior head. No erythema, no abrasion/laceration, no ecchymosis. PERRL, EOMI, MMM, voice normal, normal neck ROM, no posterior neck tenderness Cards: RRR, no murmur appreciated Pulm: Comfortable on room air, clear to auscultation bilaterally Abd: Soft, nontender, nondistended Ext: Atraumatic. No LE edema. ROM intact. Strength 5/5 and equal bilaterally, WWP Neuro: A&Ox3, CN grossly intact, normal speech, motor/sensory grossly intact and symmetric. Ambulates with steady gait. No focal deficits Psych: Mood appropriate to situation Medical Decision Making - Medical Decision Making 06/08/20 21:35 Gera David is a 60yo man with a PMH of substance abuse, hepatic encephalopathy, HTN, HLD, depression, Hep C who presents from [facility] for evaluation of a closed head injury. - Benign exam, no neuro deficits - CT head per protocol 06/08/20 22:02 - CT head negative - Will d/c back to detox Discussed with Dr Rusty Garcia PGY3 Discharge - Discharge Information Problems reviewed: Yes Clinical Impression/Diagnosis: Closed head injury Qualifiers: Encounter type: initial encounter Qualified Code(s): S09.90XA - Unspecified injury of head, initial encounter Condition: Poor - Admission No - Follow up/Referral - Patient Discharge Instructions Patient Printed Discharge Instructions: DI for Closed Head Injury Additional Instructions: Discharge Instructions: You were seen in the emergency department after a head injury. Your CT head did not show any acute injury. Please return to [facility] for the remainder of your substance abuse treatment. You may take acetaminophen or ibuprofen as needed for pain; follow the directions on the bottle. Seek immediate medical care for worsening symptoms, severe headache, any neurological symptoms (one-sided weakness, numbness, difficulty speaking), excessive sleepiness, vomiting more than 2 times per hour for at least 2 hours, or any other medical emergency. - Post Discharge Activity
--- NOTE | 2020-06-08 22:27 | PDOC ---
Documentation entered by Cara Richards SCRIBE, acting as scribe for Edilia Ojeda MD. Edilia Ojeda MD: This documentation has been prepared by the paulaibeMaurice Sydney, SCRIBE, under my direction and personally reviewed by me in its entirety. I confirm that the documentation accurately reflects all work, treatment, procedures, and medical decision making performed by me. Attending Attestation - Resident Resident Name: WillielillianChristin - ED Attending Attestation I have performed the following: I have examined & evaluated the patient, The case was reviewed & discussed with the resident, I agree w/resident's findings & plan, Exceptions are as noted - HPI HPI: 06/08/20 22:24 Pt sent from [facility] because he hit his head in the shower. - Physicial Exam PE: 06/08/20 22:24 Normal exam. Agree with resident exam - Medical Decision Making 06/08/20 21:53 Patient Name: LOWELL NORTH THIS IS A PRELIMINARY REPORT FROM [facility] DATE OF SERVICE: 2020-06-08 21:01:13 IMAGES: [id number] EXAM: HEAD CT WITHOUT CONTRAST HISTORY: Head injury COMPARISON: None. TECHNIQUE: Multiple contiguous CT axial images of the brain. Findings: There is no acute intraparenchymal hemorrhage. There is no intra or extra-axial collection. No mass effect or midline shift. No evidence for major vessel acute territorial infarction. There is bilateral basal ganglia chronic lacunar infarct. Mondragon-white matter differentiation is maintained. The ventricles are normal in size and position for patient's age. The paranasal sinuses and mastoid air cells are unopacified. Visualized orbits are unremarkable. Calvarium and soft tissues are unremarkable. Impression: 1. No acute intracranial process. 06/08/20 22:[address] scan; ready for discharge back to [facility]. Discharge - Discharge Information Problems reviewed: Yes Clinical Impression/Diagnosis: Closed head injury Qualifiers: Encounter type: initial encounter Qualified Code(s): S09.90XA - Unspecified injury of head, initial encounter Condition: Stable Disposition: HOME - Follow up/Referral - Patient Discharge Instructions Patient Printed Discharge Instructions: DI for Closed Head Injury Additional Instructions: Discharge Instructions: You were seen in the emergency department after a head injury. Your CT head did not show any acute injury. Please return to [facility] for the remainder of your substance abuse treatment. You may take acetaminophen or ibuprofen as needed for pain; follow the directions on the bottle. Seek immediate medical care for worsening symptoms, severe headache, any neurological symptoms (one-sided weakness, numbness, difficulty speaking), excessive sleepiness, vomiting more than 2 times per hour for at least 2 hours, or any other medical emergency. - Post Discharge Activity
[2020-06-08 22:28] VITALS: BP 126/81; PULSE 73
== END 2020-06-08 22:40 | disposition home or self-care (01) ==
LOC: JER 20:27
DX: S09.90XA Unspecified injury of head, initial encounter (principal)
CPT/HCPCS: 70450-TC; 99284-25